=== PATIENT | female | born 1935 | race Caucasian/White ===

== ENCOUNTER 2017-11-09 20:25 | Emergency (ER) | payer MEDICARE, OTHER, SELFPAY ==
[2017-11-09 20:27] VITALS: BP 145/85; PULSE 94; RESP 14; TEMP 37.1; O2SAT 98; BMI 32.3
[2017-11-09] MEDS: oxyCODONE 5 MG Tablet PO (22:29)
--- NOTE | 2017-11-09 22:40 | RAD_ITS ---
STUDY: X-RAY - LEFT TIBIA AND FIBULA REASON FOR EXAM: Female, 82 years old. Pain. Fall. Bruising TECHNIQUE: Frontal and lateral view(s) of the tibia and fibula were obtained. COMPARISON: None. FINDINGS: There is demineralization of the tibia. There is demineralization of the fibula. There is degenerative change of the visualized ankle. There is no demonstrated acute fracture. There is anterior soft tissue swelling. RAD/Tibia & Fibula 2 Views IMPRESSION: Soft tissue swelling. No fracture Electronically Signed: Crow Valle MD at 22:55 EDT , Service support ,
[2017-11-09 22:41] LABS: Hematocrit 34.1 % (37-47); Hemoglobin 11.4 g/dl (12.0-15.0); Mean Corp Hgb Conc 33.4 g/gl (32-36); Mean Corpuscular Hgb 33.6 pg (27.0-32.0); Mean Corpuscular Volume 100.6 fL (81-99); Mean Platelet Vol. 10.1 fl (6.2-12.0); Platelet Count 242 K/mm3 (150-450); RBC Distribution Width CV 13.3 % (11.6-14.6); RBC Distribution Width SD 48.7 fl (35.1-43.9); Red Blood Count 3.39 M/mm3 (4.2-5.4); Scan Indicated on CBC? Y/N NO; White Blood Count 7.3 K/mm3 (4.4-11.0)
[2017-11-09 22:48] LABS: International Normalized Ratio 2.1; Prothrombin Time (Protime)PT. 23.4 SECONDS (11.7-14.9)
--- NOTE | 2017-11-10 00:02 | ED.VIS.GEN ---
History of Present Illness Chief Complaint: Lower Extremity Injury Informant: Patient, Family Onset: Today Context: Sudden Onset Timing: Continuous Quality: sore/ache Location: distal left lower leg Current Severity: Moderate Maximum Severity: Moderate Worsened by: trying to walk, palpation Relieved by: rest, elevation, ice pack Narrative: Was carrying her dog, accidentally tripped while going up some concrete steps, accidentally hitting her left leg on the step. Did not fall and injure anything else. Was initially walking, but as the day went on and the area became more swollen, she had more difficulty bearing weight on her left lower extremity. She is on Coumadin for chronic A. fib. She had been icing it some, applied no heat. - Past Medical History (1) Afib Status: Chronic Past Medical History - Allergies and Home Meds Allergies/Adverse Reactions: Allergies amoxicillin Allergy (Verified 11/09/17 21:10) Unknown indomethacin [From Indocin] Allergy (Verified 11/09/17 21:10) Unknown Primary Care Physician: Abdirahman Aguero MD [Primary Care Provider] - Lives: Spouse/ Significant Other Smoking Status: Never smoker Review of Systems Musculoskeletal: Denies: Swelling, Extremity Pain Skin: Reports: Wounds - w/ bruising, no external bleeding Physical Exam Vital Signs/Narrative: Vital Signs Temp Pulse Resp BP Pulse Ox 11/09/17 20:27 98.7 F 94 14 145/85 H 98 Inital Vital Signs reviewed: Yes General: Well nourished, Well developed Head: Normocephalic, Atraumatic Neck: Supple, Nontender Extremities: Tenderness - medial distal left lower leg, including medial malleolus. large hematoma distal anterior left lower leg. no deformities. FROM knee, hip, ankle. no other signs of extremity trauma. Skin: Trauma - large hematoma distal anterior LLE. Neurological: Alert, Oriented x3, Cranial nerves II-XII grossly intact, Normal Strength, Normal Sensation Psychological: Normal affect Diagnostic/Tx/Re-eval Impressions Tibia/Fibula X-Ray 11/09/17 22:40 IMPRESSION: Soft tissue swelling. No fracture Electronically Signed: Crow Valle MD at 22:55 EDT , Service support , 11/09/17 22:17 Tibia & Fibula 2 Views [RAD] Stat Laboratory Results 11/09/17 11/09/17 22:30 22:30 WBC 7.3 RBC 3.39 L Hgb 11.4 L Hct 34.1 L MCV 100.6 H MCH 33.6 H MCHC 33.4 RDW 13.3 RDW Differential 48.7 H Plt Count 242 MPV 10.1 PT 23.4 H INR 2.1 - Medical Decision Making X-ray shows no fracture. INR is 2.1 therapeutic and her CBC shows that her counts are okay. On reevaluation, the hematoma appears similar to when I initially evaluated her and does not appear to be any active extension/expansion. Supportive care advised along with ice and elevation and avoiding heat. She was given an oxycodone here which helped, she was given a short prescription course for home use as needed. She has a cane to use at home and declines crutches. ED Disposition - Plan for ED Patient: Disposition: Home or Assisted Living Chief Complaint: Lower Extremity Injury Diagnosis: Traumatic hematoma of left lower leg Instructions: ED Hematoma Prescriptions: Oxycodone [Oxyir] 5 mg PO Q6H PRN PRN 3 Days #12 tab PRN Reason: Pain Referrals: Abdirahman Aguero MD [Primary Care Provider] - As Needed
--- NOTE | 2017-11-10 00:14 | ED.DCSUM_ITS ---
History of Present Illness Chief Complaint: Lower Extremity Injury Informant: Patient, Family Onset: Today Context: Sudden Onset Timing: Continuous Quality: sore/ache Location: distal left lower leg Current Severity: Moderate Maximum Severity: Moderate Worsened by: trying to walk, palpation Relieved by: rest, elevation, ice pack Narrative: Was carrying her dog, accidentally tripped while going up some concrete steps, accidentally hitting her left leg on the step. Did not fall and injure anything else. Was initially walking, but as the day went on and the area became more swollen, she had more difficulty bearing weight on her left lower extremity. She is on Coumadin for chronic A. fib. She had been icing it some, applied no heat. - Past Medical History (1) Afib Status: Chronic Past Medical History - Allergies and Home Meds Allergies/Adverse Reactions: Allergies amoxicillin Allergy (Verified 11/09/17 21:10) Unknown indomethacin [From Indocin] Allergy (Verified 11/09/17 21:10) Unknown Primary Care Physician: Abdirahman Aguero MD [Primary Care Provider] - Lives: Spouse/ Significant Other Smoking Status: Never smoker Review of Systems Musculoskeletal: Denies: Swelling, Extremity Pain Skin: Reports: Wounds - w/ bruising, no external bleeding Physical Exam Vital Signs/Narrative: Vital Signs Temp Pulse Resp BP Pulse Ox 11/09/17 20:27 98.7 F 94 14 145/85 H 98 Inital Vital Signs reviewed: Yes General: Well nourished, Well developed Head: Normocephalic, Atraumatic Neck: Supple, Nontender Extremities: Tenderness - medial distal left lower leg, including medial malleolus. large hematoma distal anterior left lower leg. no deformities. FROM knee, hip, ankle. no other signs of extremity trauma. Skin: Trauma - large hematoma distal anterior LLE. Neurological: Alert, Oriented x3, Cranial nerves II-XII grossly intact, Normal Strength, Normal Sensation Psychological: Normal affect Diagnostic/Tx/Re-eval Impressions Tibia/Fibula X-Ray 11/09/17 22:40 IMPRESSION: Soft tissue swelling. No fracture Electronically Signed: Crow Valle MD at 22:55 EDT , Service support , 11/09/17 22:17 Tibia & Fibula 2 Views [RAD] Stat Laboratory Results 11/09/17 11/09/17 22:30 22:30 WBC 7.3 RBC 3.39 L Hgb 11.4 L Hct 34.1 L MCV 100.6 H MCH 33.6 H MCHC 33.4 RDW 13.3 RDW Differential 48.7 H Plt Count 242 MPV 10.1 PT 23.4 H INR 2.1 - Medical Decision Making X-ray shows no fracture. INR is 2.1 therapeutic and her CBC shows that her counts are okay. On reevaluation, the hematoma appears similar to when I i nitially evaluated her and does not appear to be any active extension/expansion. Supportive care advised along with ice and elevation and avoiding heat. She was given an oxycodone here which helped, she was given a short prescription course for home use as needed. She has a cane to use at home and declines crutches. ED Disposition - Plan for ED Patient: Disposition: Home or Assisted Living Chief Complaint: Lower Extremity Injury Diagnosis: Traumatic hematoma of left lower leg Instructions: ED Hematoma Prescriptions: Oxycodone [Oxyir] 5 mg PO Q6H PRN PRN 3 Days #12 tab PRN Reason: Pain Referrals: Abdirahman Aguero MD [Primary Care Provider] - As Needed
[2017-11-10 00:26] VITALS: BP 138/79; PULSE 86; RESP 16; O2SAT 98
[2017-11-10] MEDS: oxyCODONE 5 MG Tablet PO (00:26)
== END 2017-11-10 00:33 | disposition home or self-care (01) ==
PROVIDERS: Emergency Provider Emergency Medicine; Family Provider Internal Medicine; PCP Internal Medicine
DX: S80.12XA Contusion of left lower leg, initial encounter (principal); W18.49XA Other slipping, tripping and stumbling without falling, initial encounter; Y93.9 Activity, unspecified; Y92.9 Unspecified place or not applicable; I48.2 Chronic atrial fibrillation; Z79.01 Long term (current) use of anticoagulants
CPT/HCPCS: 73590; 85027; 85610; 99283

== ENCOUNTER → 2017-11-17 15:54 | Outpatient (CLI) | payer MEDICARE, OTHER, SELFPAY ==
--- NOTE | 2017-11-17 16:40 | US_ITS ---
STUDY: SUPERFICIAL ULTRASOUND - LEFT LOWER ANTERIOR LEG. REASON FOR EXAM: Female, 82 years old. Redness and swelling. TECHNIQUE: A superficial ultrasound was performed with real-time and static kenyon-scale imaging. COMPARISON: None. FINDINGS: 2 adjacent lobulated fluid density structures with internal echoes seen in the area of clinical concern, measuring 4.9 and 6.4 cm. Findings are consistent with subcutaneous abscesses and or seromas. Electronically Signed: Nacho Rod MD at 17:21 EDT , Service support , US/Ext Non Vasc Limited/Soft Tiss
== END ==
PROVIDERS: Family Provider Internal Medicine; PCP Internal Medicine; Referring Provider Family Medicine; Visit Provider Family Medicine
DX: S80.12XD Contusion of left lower leg, subsequent encounter (principal)
CPT/HCPCS: 76882

== ENCOUNTER 2017-12-03 15:45 | Outpatient (RCR) | payer MEDICARE, OTHER, SELFPAY ==
[2017-11-23 10:17] VITALS: BP 104/64; PULSE 95; RESP 18; TEMP 36.6; BMI 29.3
--- NOTE | 2017-11-23 11:34 | HP.PCM_ITS ---
(1) Traumatic hematoma of left lower leg Status: Acute Current Visit: Yes Code(s): S80.12XA - Contusion of left lower leg, initial encounter (2) Hypertension Status: Chronic Current Visit: Yes Code(s): I10 - Essential (primary) hypertension (3) Glaucoma Status: Acute Current Visit: Yes Code(s): H40.9 - Unspecified glaucoma (4) Osteoarthritis Status: Acute Current Visit: Yes Code(s): M19.90 - Unspecified osteoarthritis, unspecified site (5) Afib Status: Chronic Current Visit: No Code(s): I48.91 - Unspecified atrial fibrillation (6) Bilateral lower extremity edema Status: Acute Current Visit: Yes Code(s): R60.0 - Localized edema (7) Decreased dorsalis pedis pulse Status: Acute Current Visit: Yes Code(s): R09.89 - Other specified symptoms and signs involving the circulatory and respiratory systems (8) Abnormal ankle brachial index (SAHIL) Status: Acute Current Visit: Yes Code(s): R68.89 - Other general symptoms and signs History of Present Illness Date of Service: 11/23/17 Chief Complaint: hematoma left lower extremity x 2 anterior surface History of Wound: This is an 82-year-old white female who presents to the wound healing center with complaints of traumatic hematomas to the left lower extremity and bilateral lower extremity edema. She has a past medical history as listed above. It should be noted that she has persistent atrial fibrillation and on chronic Coumadin therapy. The patient states that she was carrying her dog and fell on 11/09/2017 and presented to the emergency department. An x-ray of her left ankle was negative at that time. She states that shortly after she noticed an increase in redness and swelling to her left lower extremity. She had a venous duplex ultrasound which was negative for DVT and she had a repeat ultrasound on 11/17/2017 which demonstrated to areas of the left lower extremity consistent with either an abscess or probable seroma which measured 4.9 cm and the other 6.4 cm. She states that she has been utilizing no compression and has been utilizing triple antibiotic ointment and ice. She denies any signs of systemic infection at this time and does state that the redness and warmth has diminished greatly. She denies any other aggravating or relieving factors. She does note occasional serous discharge. The patient otherwise denies any fever, chills, nausea, vomiting, shortness of breath, chest pain or pressure, palpitations, orthopnea, lower extremity edema, syncope or presyncopal episodes. Past Medical History Past Medical History: Chronic Problems Afib (Chronic) Hypertension (Chronic) Allergies/Adverse Reactions: Allergies amoxicillin Allergy (Verified 11/09/17 21:10) Unknown indomethacin [From Indocin] Allergy (Verified 11/09/17 21:10) Unknown Home Medications: Ambulatory Orders Medication Instructions Recorded Aspirin [Aspirin, Baby] 81 mg PO DAILY@0800 11/23/17 Calcium Carb/Vitamin D [Os-Phi 3 tablet PO DAILY@0800 11/23/17 500MG + D] Cyanocobalamin [Vitamin B12] 500 mcg PO DAILY@0800 11/23/17 Felodipine [Plendil] 5 mg PO DAILY 11/23/17 Latanoprost 0.005% [Xalatan 1 drop EACH EYE QHS 11/23/17 Opthalmic] Losartan/Hydrochlorothiazide 1 tab PO DAILY 11/23/17 [Hyzaar 100-25 Tablet] Metoprolol Tartrate [Lopressor 25 mg PO QHS 11/23/17 (Beta Fox)] Metoprolol Tartrate [Lopressor 50 mg PO BREAKFAST 11/23/17 (Beta Fox)] Multivit-Min/FA/Lycopen/Lutein 1 each PO DAILY 11/23/17 [Senior Tabs] Smoking Status: Never smoker Review of Systems Constitutional: Denies: Chills, Fever, Weight Change Eyes: Denies: Pain, Vision Change HEENT: Denies: Difficulty Hearing, Difficulty Swallowing, Sinus Congestion Cardiovascular: Denies: Chest Pain, Palpitations Respiratory: Denies: Cough, Shortness of Breath Gastrointestinal: Denies: Diarrhea, Nausea, Vomiting Genitourinary: Denies: Dysuria, Hematuria Skin: Reports: Wounds - Hematoma see HPI Psychiatric: Denies: Anxiety, Depression Endocrine: Denies: Heat/ Cold Intolerance, Polydipsia, Polyuria Hematologic/ Lymphatic: Denies: Easy Bruising, Easy Bleeding - Physical Exam Vital Signs Temp Pulse Resp BP 97.9 F 95 18 104/64 11/23/17 10:17 11/23/17 10:17 11/23/17 10:17 11/23/17 10:17 General: Alert, Oriented x3, Cooperative, No apparent distress HEENT: Atraumatic, PERRLA, EOMI Oral: Moist Mucosa Lungs: Clear to auscultation, Normal air movement, No rhonchi, No wheeze, No rales Cardiovascular: Irregular Rate - irreg irreg, Murmur - grade 2 systolic murmur heard best aortic Abdomen: Bowel Sounds Present, Soft, Non Tender, Non-Distended, Obese Extremities: Cool, Diminished Peripheral Pulses, Edema - 3+ edema left lower extremity 2+ right lower extremity edema Skin: - - Hematoma present left lower extremity anterior and medial lower leg with fluctuance noted, minimal erythema present and no warmth noted at this time. Minimal serous drainage. Wound Measurements and Assessment WC - Nurse 1 - General Ulcer Measurement Start: 11/23/17 10:17 Freq: Status: Active Protocol: Activity Type Activity Date Activity User E-Sign Co-Sign Detail Recorded Client Recorded Date Recorded By Document 11/23/17 10:17 RB [id number] 11/23/17 10:36 RB 11/23/17 10:17 Wound Center Nurse 1 [Ulcer Assessment] 2. L lateral chow -Combined with other wound No -Current Size (cm) - Length 3.8 -Current Size (cm) - Width 7.7 -Current Size (cm) - Depth 0.1 -Total Square Cm 29.26 -Photo Taken Yes -Tunneling No -Undermining/Tunneling No -Circular Undermining No -Classification - Thickness Full Thickness without Exposed Support Structure -Exudate Amt Small (1-33%) -Exudate Type Serosanguineous -Wound Margin Distinct, Outline Attached -Granulation Amt Small (1-33%) -Granulation Quality [place] -Slough/Fibrin Yes -Necrosis Amt Large (67-100%) -Necrotic Tissue Type Eschar -Structure Exposed N/A -Texture (Maryse-wound Skin Appearance) Assessed Localized Edema -Moisture (Maryse-wound Skin Appearance Assessed ) -Color (Maryse-wound Skin Appearance) Assessed Hemosiderin Staining -Temperature (Maryse-wound Skin No Abnormality Appearance) (Pt Warm) -Tenderness on Palpation (Maryse-wound No Skin Appearance) -Ulcer Cleansing Rinsed/ Irrigated with Saline -Foul Odor after Cleansing No -Anesthetic Used 4% Lidocaine Solution 1. L medial chow -Combined with other wound No -Current Size (cm) - Length 2 -Current Size (cm) - Width 4 -Current Size (cm) - Depth 0.1 -Total Square Cm 8 -Photo Taken Yes -Tunneling No -Undermining/Tunneling No -Circular Undermining No -Classification - Thickness Full Thickness without Exposed Support Structure -Exudate Amt Small (1-33%) -Exudate Type Serosanguineous -Wound Margin Distinct, Outline Attached -Granulation Amt Small (1-33%) -Granulation Quality [place] -Slough/Fibrin Yes -Necrosis Amt Large (67-100%) -Necrotic Tissue Type Adherent Slough -Structure Exposed N/A -Texture (Maryse-wound Skin Appearance) Assessed Localized Edema -Moisture (Maryse-wound Skin Appearance Assessed ) -Color (Maryse-wound Skin Appearance) Hemosiderin Staining -Temperature (Maryse-wound Skin No Abnormality Appearance) (Pt Warm) -Tenderness on Palpation (Maryse-wound No Skin Appearance) -Ulcer Cleansing Rinsed/ Irrigated with Saline -Foul Odor after Cleansing No -Anesthetic Used 4% Lidocaine Solution [Edema Assessment] -Lower Limb Edema Present Yes -Right Calf (cm) 44 -Right Ankle (cm) 30 -Left Calf (cm) 47.5 -Left Ankle (cm) 31 WC - Nurse 2 - General Ulcer CM Notes Start: 11/23/17 10:17 Freq: Status: Active Protocol: Activity Type Activity Date Activity User E-Sign Co-Sign Detail Recorded Client Recorded Date Recorded By Document 11/23/17 10:54 [id number] 11/23/17 11:09 11/23/17 10:54 Wound Center Nurse 2 [Procedure/Treatment] 2. L lateral chow -Time 10:54 -Correct Patient Yes -Correct Side, Site, Position Yes -Correct Procedure Yes -Procedure Performed Yes -Type of Procedure Debridement -Clinical Debridement Selective -Post Debridement Size (cm) - Length 3.5 -Post Debridement Size (cm) - Width 7.5 -Post Debridement Size (cm) - Depth 0.1 -Total Square Cm 26.25 -Wound/Ulcer Outcome Not Healed -Ulcer Cleansing Rinsed/ Irrigated with Saline -Foul Odor after Cleansing No -Bioengineered Tissue No -Topical Lidocaine (%) 4 -Bleeding Controlled with Pressure -Treatment Response Procedure Tolerated Well 1. L medial chow -Time 11:04 -Correct Patient Yes -Correct Side, Site, Position Yes -Correct Procedure Yes -Procedure Performed Yes -Type of Procedure Debridement -Clinical Debridement Selective -Post Debridement Size (cm) - Length 1.5 -Post Debridement Size (cm) - Width 2.5 -Post Debridement Size (cm) - Depth 0.1 -Total Square Cm 3.75 -Wound/Ulcer Outcome Not Healed -Ulcer Cleansing Rinsed/ Irrigated with Saline -Foul Odor after Cleansing No -Bioengineered Tissue No -Topical Lidocaine (%) 4 -Bleeding Controlled with Pressure -Treatment Response Procedure Tolerated Well [See Physician Procedure note for Specifics] Pain Scale: 0-10 Numeric [Pain] -Is Patient Pain Free? Yes Neurological: Neuro grossly intact Psych/Mental Status: Normal Affect, Appropriate, Alert and oriented to time, place, person, mood and affect Debridement Note Post-Debridement Measurements/Treatment WC - Nurse 2 - General Ulcer CM Notes Start: 11/23/17 10:17 Freq: Status: Active Protocol: Activity Type Activity Date Activity User E-Sign Co-Sign Detail Recorded Client Recorded Date Recorded By Document 11/23/17 10:54 [id number] 11/23/17 11:09 11/23/17 10:54 Wound Center Nurse 2 2. L lateral chow -Time 10:54 -Correct Patient Yes -Correct Side, Site, Position Yes -Correct Procedure Yes -Procedure Performed Yes -Type of Procedure Debridement -Clinical Debridement Selective -Post Debridement Size (cm) - Length 3.5 -Post Debridement Size (cm) - Width 7.5 -Post Debridement Size (cm) - Depth 0.1 -Total Square Cm 26.25 -Wound/Ulcer Outcome Not Healed -Ulcer Cleansing Rinsed/ Irrigated with Saline -Foul Odor after Cleansing No -Bioengineered Tissue No -Topical Lidocaine (%) 4 -Bleeding Controlled with Pressure -Treatment Response Procedure Tolerated Well 1. L medial chow -Time 11:04 -Correct Patient Yes -Correct Side, Site, Position Yes -Correct Procedure Yes -Procedure Performed Yes -Type of Procedure Debridement -Clinical Debridement Selective -Post Debridement Size (cm) - Length 1.5 -Post Debridement Size (cm) - Width 2.5 -Post Debridement Size (cm) - Depth 0.1 -Total Square Cm 3.75 -Wound/Ulcer Outcome Not Healed -Ulcer Cleansing Rinsed/ Irrigated with Saline -Foul Odor after Cleansing No -Bioengineered Tissue No -Topical Lidocaine (%) 4 -Bleeding Controlled with Pressure -Treatment Response Procedure Tolerated Well Pain Scale: 0-10 Numeric Is Patient Pain Free? Yes Wound debrided: Left lower extremity hematomas Laterality: Left Type of Debridement: Selective debridement Anesthesia Used: 5% Lidocaine Gel Depth: Down to and including healthy tissue Percentage of wound debrided: 100 Instrument Used: 7mm curette Tissue Removed: Very superficial slough, skin at this time is still intact over top hematom Severity: Limited To Skin Breakdown Amount of bleeding with debridement: None Patient tolerated procedure well Assessment/Plan Active Problems Traumatic hematoma of left lower leg (Acute) Hypertension (Chronic) Glaucoma (Acute) Osteoarthritis (Acute) Bilateral lower extremity edema (Acute) Decreased dorsalis pedis pulse (Acute) Abnormal ankle brachial index (SAHIL) (Acute) Assessment: See above diagnoses Plan: The patient was seen and examined at the wound center today and was updated on the plan of care. A selective debridement was performed today. The patient tolerated the procedure well. The skin surrounding the areas of hematomas and on top of the hematomas is intact at this time. The patients wound care will consist of: Adaptic gauze and double Tubigrip. No further compression at this time due to screening SAHIL being abnormal to the left SAHIL 1.5 and right SAHIL 1.3. Baseline bloodwork reviewed from ER notes and essentially within normal limits, recent venous duplex, ultrasound, and x-ray reviewed as well. Vascular studies ordered. Patient to utilize warm compresses and educated on proper use of warm compresses to help body reabsorb the hematomas. Patient educated on the importance of diet on wound healing and instructed to increase protein and vitamin C intake. Patient verbalized understanding. Patient will follow up at wound healing center in one week or sooner if needed. This note was generated with Medigram dictation software. It may contain incorrect words, spelling, and punctuation that were not noted in checking the note before signing. Code Visit 21647 Office Visits / Consults: [id number] OV L4 Est
[2017-12-03 15:48] VITALS: BP 121/96; PULSE 90; RESP 16; TEMP 36.2; BMI 29.3
--- NOTE | 2017-12-03 20:08 | PCM.WC.PN ---
(1) Traumatic hematoma of left lower leg Status: Acute Current Visit: Yes Code(s): S80.12XA - Contusion of left lower leg, initial encounter (2) Hypertension Status: Chronic Current Visit: Yes Code(s): I10 - Essential (primary) hypertension (3) Glaucoma Status: Acute Current Visit: Yes Code(s): H40.9 - Unspecified glaucoma (4) Osteoarthritis Status: Acute Current Visit: Yes Code(s): M19.90 - Unspecified osteoarthritis, unspecified site (5) Afib Status: Chronic Current Visit: No Code(s): I48.91 - Unspecified atrial fibrillation (6) Bilateral lower extremity edema Status: Acute Current Visit: Yes Code(s): R60.0 - Localized edema (7) Decreased dorsalis pedis pulse Status: Acute Current Visit: Yes Code(s): R09.89 - Other specified symptoms and signs involving the circulatory and respiratory systems (8) Abnormal ankle brachial index (SAHIL) Status: Acute Current Visit: Yes Code(s): R68.89 - Other general symptoms and signs (9) Wound of left lower extremity Status: Acute Current Visit: Yes Code(s): S81.802A - Unspecified open wound, left lower leg, initial encounter Type of Wound Date of Service: 12/03/17 Chief Complaint: hematoma left lower extremity x 2 anterior surface medial and lateral History of Wound: This is an 82-year-old white female who presents to the wound healing center with complaints of traumatic hematomas to the left lower extremity and bilateral lower extremity edema. She has a past medical history as listed above. It should be noted that she has persistent atrial fibrillation and on chronic Coumadin therapy. The patient states that she was carrying her dog and fell on 11/09/2017 and presented to the emergency department. An x-ray of her left ankle was negative at that time. She states that shortly after she noticed an increase in redness and swelling to her left lower extremity. She had a venous duplex ultrasound which was negative for DVT and she had a repeat ultrasound on 11/17/2017 which demonstrated to areas of the left lower extremity consistent with either an abscess or probable seroma which measured 4.9 cm and the other 6.4 cm. She states that she has been utilizing no compression and has been utilizing triple antibiotic ointment and ice. She denies any signs of systemic infection at this time and does state that the redness and warmth has diminished greatly. She denies any other aggravating or relieving factors. She does note occasional serous discharge. The patient otherwise denies any fever, chills, nausea, vomiting, shortness of breath, chest pain or pressure, palpitations, orthopnea, lower extremity edema, syncope or presyncopal episodes. Progress of Wound: Both sites on left lower extremity traumatic hematoma are now open and draining, patient and family deeply concerned - Physical Exam Vital Signs Temp Pulse Resp BP 97.1 F L 90 16 121/96 H 12/03/17 15:48 12/03/17 15:48 12/03/17 15:48 12/03/17 15:48 General: Alert, Oriented x3, Cooperative, No apparent distress HEENT: Atraumatic Lungs: Clear to auscultation Cardiovascular: Regular rate Extremities: Cool, Edema - 2+ Skin: Ulcer/ Wound - Medial and lateral hematoma sites on left lower extremity now open and draining, large amount of devitalized tissue present, slight malodor at this time, fluctuance noted surrounding both wound sites and tunneling varies between 5 and 8 cm, minimal tenderness to touch. Some erythema present surrounding wound bed edges not extending more than 2 cm from the wound bed edges. Wound Measurements and Assessment WC - Nurse 1 - General Ulcer Measurement Start: 11/23/17 10:17 Freq: Status: Active Protocol: Activity Type Activity Date Activity User E-Sign Co-Sign Detail Recorded Client Recorded Date Recorded By Document 12/03/17 15:48 [facility] [id number] 12/03/17 15:56 [facility] 12/03/17 15:48 Wound Center Nurse 1 [Ulcer Assessment] 2. L lateral chow -Combined with other wound No -Current Size (cm) - Length 4.4 -Current Size (cm) - Width 6.4 -Current Size (cm) - Depth 0.2 -Total Square Cm 28.16 -Photo Taken No -Epithelialization None Present -Tunneling No -Undermining/Tunneling No -Circular Undermining No -Exudate Amt Medium (34-66%) -Exudate Type Sanguineous -Wound Margin Distinct, Outline Attached -Granulation Amt None Present (0 %) -Slough/Fibrin Yes -Necrosis Amt Large (67-100%) -Necrotic Tissue Type Eschar -Structure Exposed N/A -Texture (Maryse-wound Skin Appearance) Localized Edema Scarring -Moisture (Maryse-wound Skin Appearance Dry/Scaly ) -Color (Maryse-wound Skin Appearance) Hemosiderin Staining -Temperature (Maryse-wound Skin No Abnormality Appearance) (Pt Warm) -Tenderness on Palpation (Maryse-wound No Skin Appearance) -Ulcer Cleansing Rinsed/ Irrigated with Saline -Foul Odor after Cleansing No -Anesthetic Used 4% Lidocaine Solution 1. L medial chow -Combined with other wound No -Current Size (cm) - Length 1.5 -Current Size (cm) - Width 1.7 -Current Size (cm) - Depth 0.1 -Total Square Cm 2.55 -Photo Taken No -Epithelialization None Present -Tunneling No -Undermining/Tunneling No -Circular Undermining No -Exudate Amt Small (1-33%) -Exudate Type Sanguineous -Wound Margin Distinct, Outline Attached -Granulation Amt None Present (0 %) -Slough/Fibrin Yes -Necrosis Amt Large (67-100%) -Necrotic Tissue Type Eschar -Structure Exposed N/A -Texture (Maryse-wound Skin Appearance) Localized Edema Scarring -Moisture (Maryse-wound Skin Appearance Dry/Scaly ) -Color (Maryse-wound Skin Appearance) Hemosiderin Staining -Temperature (Maryse-wound Skin No Abnormality Appearance) (Pt Warm) -Tenderness on Palpation (Maryse-wound No Skin Appearance) -Ulcer Cleansing Rinsed/ Irrigated with Saline -Foul Odor after Cleansing No -Anesthetic Used 4% Lidocaine Solution [Edema Assessment] -Lower Limb Edema Present Yes -Left Calf (cm) 42 -Left Ankle (cm) 29 WC - Nurse 2 - General Ulcer CM Notes Start: 11/23/17 10:17 Freq: Status: Active Protocol: Activity Type Activity Date Activity User E-Sign Co-Sign Detail Recorded Client Recorded Date Recorded By Document 12/03/17 17:06 DV [id number] 12/03/17 17:10 DV 12/03/17 17:06 Wound Center Nurse 2 [Procedure/Treatment] 2. L lateral chow -Time 17:09 -Correct Patient Yes -Correct Side, Site, Position Yes -Correct Procedure Yes -Procedure Performed Yes -Type of Procedure Debridement -Clinical Debridement Subcutaneous -Post Debridement Size (cm) - Length 1.0 -Post Debridement Size (cm) - Width 1.5 -Post Debridement Size (cm) - Depth 3.0 -Total Square Cm 1.50 -Wound/Ulcer Outcome Not Healed -Ulcer Cleansing Rinsed/ Irrigated with Saline -Foul Odor after Cleansing No -Bioengineered Tissue No -Bleeding Controlled with Pressure -Treatment Response Procedure Tolerated Well 1. L medial chow -Time 17:09 -Correct Patient Yes -Correct Side, Site, Position Yes -Correct Procedure Yes -Procedure Performed Yes -Type of Procedure Debridement -Clinical Debridement Subcutaneous -Post Debridement Size (cm) - Length 3.7 -Post Debridement Size (cm) - Width 5.7 -Post Debridement Size (cm) - Depth 3.3 -Total Square Cm 21.09 -Wound/Ulcer Outcome Not Healed -Ulcer Cleansing Rinsed/ Irrigated with Saline -Foul Odor after Cleansing No -Bioengineered Tissue No -Bleeding Controlled with Pressure -Treatment Response Procedure Tolerated Well [See Physician Procedure note for Specifics] Pain Scale: 0-10 Numeric [Pain] -Is Patient Pain Free? Yes Neurological: Neuro grossly intact Psych/Mental Status: Normal Affect, Appropriate, Alert and oriented to time, place, person, mood and affect Debridement Note Post-Debridement Measurements/Treatment WC - Nurse 2 - General Ulcer CM Notes Start: 11/23/17 10:17 Freq: Status: Active Protocol: Activity Type Activity Date Activity User E-Sign Co-Sign Detail Recorded Client Recorded Date Recorded By Document 11/23/17 10:54 TM [id number] 11/23/17 11:09 TM Document 12/03/17 17:06 DV [id number] 12/03/17 17:10 DV 11/23/17 12/03/17 10:54 17:06 Wound Center Nurse 2 2. L lateral chow -Time 10:54 17:09 -Correct Patient Yes Yes -Correct Side, Site, Position Yes Yes -Correct Procedure Yes Yes -Procedure Performed Yes Yes -Type of Procedure Debridement Debridement -Clinical Debridement Selective Subcutaneous -Post Debridement Size (cm) - Length 3.5 1.0 -Post Debridement Size (cm) - Width 7.5 1.5 -Post Debridement Size (cm) - Depth 0.1 3.0 -Total Square Cm 26.25 1.50 -Wound/Ulcer Outcome Not Healed Not Healed -Ulcer Cleansing Rinsed/ Rinsed/ Irrigated with Irrigated with Saline Saline -Foul Odor after Cleansing No No -Bioengineered Tissue No No -Topical Lidocaine (%) 4 -Bleeding Controlled with Pressure Pressure -Treatment Response Procedure Procedure Tolerated Well Tolerated Well 1. L medial chow -Time 11:04 17:09 -Correct Patient Yes Yes -Correct Side, Site, Position Yes Yes -Correct Procedure Yes Yes -Procedure Performed Yes Yes -Type of Procedure Debridement Debridement -Clinical Debridement Selective Subcutaneous -Post Debridement Size (cm) - Length 1.5 3.7 -Post Debridement Size (cm) - Width 2.5 5.7 -Post Debridement Size (cm) - Depth 0.1 3.3 -Total Square Cm 3.75 21.09 -Wound/Ulcer Outcome Not Healed Not Healed -Ulcer Cleansing Rinsed/ Rinsed/ Irrigated with Irrigated with Saline Saline -Foul Odor after Cleansing No No -Bioengineered Tissue No No -Topical Lidocaine (%) 4 -Bleeding Controlled with Pressure Pressure -Treatment Response Procedure Procedure Tolerated Well Tolerated Well Pain Scale: 0-10 Numeric Is Patient Pain Free? Yes Yes Wound debrided: left lower extremity wounds, medial and lateral Laterality: Left Type of Debridement: Excisional debridement Anesthesia Used: 5% Lidocaine Gel Depth: in the subcutaneous layer, to muscle Percentage of wound debrided: 100 Instrument Used: 7mm curette Tissue Removed: Large amount of black devitalized blood and necrotic tissue removed Severity: Necrosis of Muscle Amount of bleeding with debridement: Mild Bleeding Controlled with: Pressure Patient tolerated procedure well Assessment/Plan Active Problems Traumatic hematoma of left lower leg (Acute) Hypertension (Chronic) Glaucoma (Acute) Osteoarthritis (Acute) Bilateral lower extremity edema (Acute) Decreased dorsalis pedis pulse (Acute) Abnormal ankle brachial index (SAHIL) (Acute) Wound of left lower extremity (Acute) Assessment: See above diagnoses Plan: The patient was seen and examined at the wound center today and was updated on the plan of care. A subcutaneous debridement was performed today. The patient tolerated the procedure well. The previous hematoma sites on the left lower extremity are now open and draining. There is extensive undermining and tunneling present and discussed with patient that due to the malodor, will check wound cultures and will prophylactically start on doxycycline twice daily times 7 days. Did discuss with the patient and family that due to the extent of the devitalized tissue tunneling and undermining that an outpatient consult to general surgery is warranted. Patient and family is deeply concerned and states that they may seek medical attention in the emergency department. Did advise patient that wounds are not urgent at this time and are stable and that I can get a referral set up with either general surgery or Dr. Gaytan in plastic surgery. The patients wound care will consist of: aquacell silver and double Tubigrip. No further compression at this time due to screening SAHIL being abnormal to the left SAHIL 1.5 and right SAHIL 1.3. Baseline bloodwork reviewed from ER notes and essentially within normal limits, recent venous duplex, ultrasound, and x-ray reviewed as well. Vascular studies ordered. Patient to utilize warm compresses and educated on proper use of warm compresses to help body reabsorb the hematomas. Will apply for a [employer] vac. Patient educated on the importance of diet on wound healing and instructed to increase protein and vitamin C intake. Patient verbalized understanding. Patient will follow up at wound healing center in one week or sooner if needed. This note was generated with [employer] dictation software. It may contain incorrect words, spelling, and punctuation that were not noted in checking the note before signing. Code Visit [id number]: [id number] [place] subq tissue 20 sq cm/<
[2017-12-03 21:53] LABS: M R Staph aureus DNA By PCR Negative (Negative); Probe Check PASS; Staph aureus DNA By PCR NEGATIVE (Negative)
--- NOTE | 2017-12-04 09:14 | PN.PCM_ITS ---
(1) Traumatic hematoma of left lower leg Status: Acute Current Visit: Yes Code(s): S80.12XA - Contusion of left lower leg, initial encounter (2) Hypertension Status: Chronic Current Visit: Yes Code(s): I10 - Essential (primary) hypertension (3) Glaucoma Status: Acute Current Visit: Yes Code(s): H40.9 - Unspecified glaucoma (4) Osteoarthritis Status: Acute Current Visit: Yes Code(s): M19.90 - Unspecified osteoarthritis, unspecified site (5) Afib Status: Chronic Current Visit: No Code(s): I48.91 - Unspecified atrial fibrillation (6) Bilateral lower extremity edema Status: Acute Current Visit: Yes Code(s): R60.0 - Localized edema (7) Decreased dorsalis pedis pulse Status: Acute Current Visit: Yes Code(s): R09.89 - Other specified symptoms and signs involving the circulatory and respiratory systems (8) Abnormal ankle brachial index (SAHIL) Status: Acute Current Visit: Yes Code(s): R68.89 - Other general symptoms and signs (9) Wound of left lower extremity Status: Acute Current Visit: Yes Code(s): S81.802A - Unspecified open wound, left lower leg, initial encounter Type of Wound Date of Service: 12/03/17 Chief Complaint: hematoma left lower extremity x 2 anterior surface medial and lateral History of Wound: This is an 82-year-old white female who presents to the wound healing center with complaints of traumatic hematomas to the left lower extremity and bilateral lower extremity edema. She has a past medical history a s listed above. It should be noted that she has persistent atrial fibrillation and on chronic Coumadin therapy. The patient states that she was carrying her dog and fell on 11/09/2017 and presented to the emergency department. An x-ray of her left ankle was negative at that time. She states that shortly after she noticed an increase in redness and swelling to her left lower extremity. She had a venous duplex ultrasound which was negative for DVT and she had a repeat ultrasound on 11/17/2017 which demonstrated to areas of the left lower extremity consistent with either an abscess or probable seroma which measured 4.9 cm and the other 6.4 cm. She states that she has been utilizing no compression and has been utilizing triple antibiotic ointment and ice. She denies any signs of systemic infection at this time and does state that the redness and warmth has diminished greatly. She denies any other aggravating or relieving factors. She does note occasional serous discharge. The patient otherwise denies any fever, chills, nausea, vomiting, shortness of breath, chest pain or pressure, palpitations, orthopnea, lower extremity edema, syncope or presyncopal episodes. Progress of Wound: Both sites on left lower extremity traumatic hematoma are now open and draining, patient and family deeply concerned - Physical Exam Vital Signs Temp Pulse Resp BP 97.1 F L 90 16 121/96 H 12/03/17 15:48 12/03/17 15:48 12/03/17 15:48 12/03/17 15:48 General: Alert, Oriented x3, Cooperative, No apparent distress HEENT: Atraumatic Lungs: Clear to auscultation Cardiovascular: Regular rate Extremities: Cool, Edema - 2+ Skin: Ulcer/ Wound - Medial and lateral hematoma sites on left lower extremity now open and draining, large amount of devitalized tissue present, slight malodor at this time, fluctuance noted surrounding both wound sites and tunneling varies between 5 and 8 cm, minimal tenderness to touch. Some erythema present surrounding wound bed edges not extending more than 2 cm from the wound bed edges. Wound Measurements and Assessment WC - Nurse 1 - General Ulcer Measurement Start: 11/23/17 10:17 Freq: Status: Active Protocol: Activity Type Activity Date Activity User E-Sign Co-Sign Detail Recorded Client Recorded Date Recorded By Document 12/03/17 15:48 [facility] [id number] 12/03/17 15:56 [facility] 12/03/17 15:48 Wound Center Nurse 1 [Ulcer Assessment] 2. L lateral chow -Combined with other wound No -Current Size (cm) - Length 4.4 -Current Size (cm) - Width 6.4 -Current Size (cm) - Depth 0.2 -Total Square Cm 28.16 -Photo Taken No -Epithelialization None Present -Tunneling No -Undermining/Tunneling No -Circular Undermining No -Exudate Amt Medium (34-66%) -Exudate Type Sanguineous -Wound Margin Distinct, Outline Attached -Granulation Amt None Present (0 %) -Slough/Fibrin Yes -Necrosis Amt Large (67-100%) -Necrotic Tissue Type Eschar -Structure Exposed N/A -Texture (Maryse-wound Skin Appearance) Localized Edema Scarring -Moisture (Maryse-wound Skin Appearance Dry/Scaly ) -Color (Maryse-wound Skin Appearance) Hemosiderin Staining -Temperature (Maryse-wound Skin No Abnormality Appearance) (Pt Warm) -Tenderness on Palpation (Maryse-wound No Skin Appearance) -Ulcer Cleansing Rinsed/ Irrigated with Saline -Foul Odor after Cleansing No -Anesthetic Used 4% Lidocaine Solution 1. L medial chow -Combined with other wound No -Current Size (cm) - Length 1.5 -Current Size (cm) - Width 1.7 -Current Size (cm) - Depth 0.1 -Total Square Cm 2.55 -Photo Taken No -Epithelialization None Present -Tunneling No -Undermining/Tunneling No -Circular Undermining No -Exudate Amt Small (1-33%) -Exudate Type Sanguineous -Wound Margin Distinct, Outline Attached -Granulation Amt None Present (0 %) -Slough/Fibrin Yes -Necrosis Amt Large (67-100%) -Necrotic Tissue Type Eschar -Structure Exposed N/A -Texture (Maryse-wound Skin Appearance) Localized Edema Scarring -Moisture (Maryse-wound Skin Appearance Dry/Scaly ) -Color (Maryse-wound Skin Appearance) Hemosiderin Staining -Temperature (Maryse-wound Skin No Abnormality Appearance) (Pt Warm) -Tenderness on Palpation (Maryse-wound No Skin Appearance) -Ulcer Cleansing Rinsed/ Irrigated with Saline -Foul Odor after Cleansing No -Anesthetic Used 4% Lidocaine Solution [Edema Assessment] -Lower Limb Edema Present Yes -Left Calf (cm) 42 -Left Ankle (cm) 29 WC - Nurse 2 - General Ulcer CM Notes Start: 11/23/17 10:17 Freq: Status: Active Protocol: Activity Type Activity Date Activity User E-Sign Co-Sign Detail Recorded Client Recorded Date Recorded By Document 12/03/17 17:06 DV [id number] 12/03/17 17:10 DV 12/03/17 17:06 Wound Center Nurse 2 [Procedure/Treatment] 2. L lateral chow -Time 17:09 -Correct Patient Yes -Correct Side, Site, Position Yes -Correct Procedure Yes -Procedure Performed Yes -Type of Procedure Debridement -Clinical Debridement Subcutaneous -Post Debridement Size (cm) - Length 1.0 -Post Debridement Size (cm) - Width 1.5 -Post Debridement Size (cm) - Depth 3.0 -Total Square Cm 1.50 -Wound/Ulcer Outcome Not Healed -Ulcer Cleansing Rinsed/ Irrigated with Saline -Foul Odor after Cleansing No -Bioengineered Tissue No -Bleeding Controlled with Pressure -Treatment Response Procedure Tolerated Well 1. L medial chow -Time 17:09 -Correct Patient Yes -Correct Side, Site, Position Yes -Correct Procedure Yes -Procedure Performed Yes -Type of Procedure Debridement -Clinical Debridement Subcutaneous -Post Debridement Size (cm) - Length 3.7 -Post Debridement Size (cm) - Width 5.7 -Post Debridement Size (cm) - Depth 3.3 -Total Square Cm 21.09 -Wound/Ulcer Outcome Not Healed -Ulcer Cleansing Rinsed/ Irrigated with Saline -Foul Odor after Cleansing No -Bioengineered Tissue No -Bleeding Controlled with Pressure -Treatment Response Procedure Tolerated Well [See Physician Procedure note for Specifics] Pain Scale: 0-10 Numeric [Pain] -Is Patient Pain Free? Yes Neurological: Neuro grossly intact Psych/Mental Status: Normal Affect, Appropriate, Alert and oriented to time, place, person, mood and affect Debridement Note Post-Debridement Measurements/Treatment WC - Nurse 2 - General Ulcer CM Notes Start: 11/23/17 10:17 Freq: Status: Active Protocol: Activity Type Activity Date Activity User E-Sign Co-Sign Detail Recorded Client Recorded Date Recorded By Document 11/23/17 10:54 TM [id number] 11/23/17 11:09 TM Document 12/03/17 17:06 DV [id number] 12/03/17 17:10 DV 11/23/17 12/03/17 10:54 17:06 Wound Center Nurse 2 2. L lateral chow -Time 10:54 17:09 -Correct Patient Yes Yes -Correct Side, Site, Position Yes Yes -Correct Procedure Yes Yes -Procedure Performed Yes Yes -Type of Procedure Debridement Debridement -Clinical Debridement Selective Subcutaneous -Post Debridement Size (cm) - Length 3.5 1.0 -Post Debridement Size (cm) - Width 7.5 1.5 -Post Debridement Size (cm) - Depth 0.1 3.0 -Total Square Cm 26.25 1.50 -Wound/Ulcer Outcome Not Healed Not Healed -Ulcer Cleansing Rinsed/ Rinsed/ Irrigated with Irrigated with Saline Saline -Foul Odor after Cleansing No No -Bioengineered Tissue No No -Topical Lidocaine (%) 4 -Bleeding Controlled with Pressure Pressure -Treatment Response Procedure Procedure Tolerated Well Tolerated Well 1. L medial chow -Time 11:04 17:09 -Correct Patient Yes Yes -Correct Side, Site, Position Yes Yes -Correct Procedure Yes Yes -Procedure Performed Yes Yes -Type of Procedure Debridement Debridement -Clinical Debridement Selective Subcutaneous -Post Debridement Size (cm) - Length 1.5 3.7 -Post Debridement Size (cm) - Width 2.5 5.7 -Post Debridement Size (cm) - Depth 0.1 3.3 -Total Square Cm 3.75 21.09 -Wound/Ulcer Outcome Not Healed Not Healed -Ulcer Cleansing Rinsed/ Rinsed/ Irrigated with Irrigated with Saline Saline -Foul Odor after Cleansing No No -Bioengineered Tissue No No -Topical Lidocaine (%) 4 -Bleeding Controlled with Pressure Pressure -Treatment Response Procedure Procedure Tolerated Well Tolerated Well Pain Scale: 0-10 Numeric Is Patient Pain Free? Yes Yes Wound debrided: left lower extremity wounds, medial and lateral Laterality: Left Type of Debridement: Excisional debridement Anesthesia Used: 5% Lidocaine Gel Depth: in the subcutaneous layer, to muscle Percentage of wound debrided: 100 Instrument Used: 7mm curette Tissue Removed: Large amount of black devitalized blood and necrotic tissue removed Severity: Necrosis of Muscle Amount of bleeding with debridement: Mild Bleeding Controlled with: Pressure Patient tolerated procedure well Assessment/Plan Active Problems Traumatic hematoma of left lower leg (Acute) Hypertension (Chronic) Glaucoma (Acute) Osteoarthritis (Acute) Bilateral lower extremity edema (Acute) Decreased dorsalis pedis pulse (Acute) Abnormal ankle brachial index (SAHIL) (Acute) Wound of left lower extremity (Acute) Assessment: See above diagnoses Plan: The patient was seen and examined at the wound center today and was updated on the plan of care. A subcutaneous debridement was performed today. The patient tolerated the procedure well. The previous hematoma sites on the left lower extremity are now open and draining. There is extensive undermining and tunneling present and discussed with patient that due to the malodor, will check wound cultures and will prophylactically start on doxycycline twice daily times 7 days. Did discuss with the patient and family that due to the extent of the devitalized tissue tunneling and undermining that an outpatient consult to general surgery is warranted. Patient and family is deeply concerned and states that they may seek medical attention in the emergency department. Did advise patient that wounds are not urgent at this time and are stable and that I can get a referral set up with either general surgery or Dr. Gaytan in plastic surgery. The patients wound care will consist of: aquacell silver and double Tubigrip. No further compression at this time due to screening SAHIL being abnormal to the left SAHIL 1.5 and right SAHIL 1.3. Baseline bloodwork reviewed from ER notes and essentially within normal limits, recent venous duplex, ultrasound, and x-ray reviewed as well. Vascular studies ordered. Patient to utilize warm compresses and educated on proper use of warm compresses to help body reabsorb the hematomas. Will apply for a [employer]CI vac. Patient educated on the importance of diet on wound healing and instructed to increase protein and vitamin C intake. Patient verbalized understanding. Patient will follow up at wound healing center in one week or sooner if needed. This note was generated with [employer] dictation software. It may contain incorrect words, spelling, and punctuation that were not noted in checking the note before signing. Code Visit 111xxx-113xx: [id number] [place] subq tissue 20 sq cm/<
--- NOTE | 2018-01-22 15:31 | WC ---
Courtesy visit for NELSON Reeves today. Chart review did not have presence of Non-Invasive Vascular Studies scheduled 12/08/17 @ 10:00. Venous Ultrasound was from 2011. Patient did have SAHIL Screen performed 11/23/17 which was showed R-SAHIL=1.3 / L=1.5. Vascular studies rescheduled today for 02/01/18 @ 10:00 & 11:00 a.m. Mrs. Soto contacted with appointment, and acknowledged same. Next F/U appointment w/Claudia Prajapati: 01/28/18 @ 14:00
== END 2017-12-09 23:59 ==
LOC: WC 15:45
PROVIDERS: Family Provider Internal Medicine; PCP Internal Medicine; Visit Provider Nurse Practitioner Family
DX: S80.12XA Contusion of left lower leg, initial encounter (principal); W19.XXXA Unspecified fall, initial encounter; I10 Essential (primary) hypertension; M19.90 Unspecified osteoarthritis, unspecified site; I48.2 Chronic atrial fibrillation; R60.0 Localized edema; H40.9 Unspecified glaucoma; I48.1 Persistent atrial fibrillation; Z79.01 Long term (current) use of anticoagulants; Z79.899 Other long term (current) drug therapy
CPT/HCPCS: 11043; 11046; 87070; 87075; 87076; 87077; 87186; 87205; 87640; 97597; 97598; 99213; G0463

== ENCOUNTER 2017-12-03 18:18 | Emergency (ER) | payer MEDICARE, OTHER, SELFPAY ==
[2017-12-03 18:19] VITALS: BP 132/72; PULSE 90; RESP 14; TEMP 36.4; O2SAT 98; BMI 32.3
--- NOTE | 2017-12-03 20:04 | ED.DCSUM_ITS ---
- ER Visit Summary Date of Service: 12/03/17 Chief Complaint: Wound check History of Present Illness: The patient is a 82 F who presents for a wound check. She had a fall on November 09 with hematoma and open wounds to the left leg. She saw wound care today and had some debridement and packing. She states that she may need to see a surgeon. 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 She was told that this was not urgent. She denies any fevers increased pain drainage nausea vomiting diarrhea. She states she was told that we may be able to clean it up a bit for her. Physical Examination: Afebrile vitals are normal Moist mucous membranes Heart regular rate and rhythm Lungs are clear Abdomen soft Patient has open wounds of left lower extremity there is no erythema foul odor or drainage Test Results: Not indicated Emergency Department Course and Treatment: It is unclear why the patient was advised that she could or should be seen in the emergency department. I explained that this was not something we would have a surgeon see her for urgently but rather in outpatient follow-up. I also explained that in regards to wound care this is why she is in fact seeing the wound clinic. Does appear she was referred to Dr. Patel. She was given his contact information. She was instructed on signs and symptoms that should prompt her to be evaluated here in the emergency department and was discharged home. Treatment Plan: [] Disposition: Discharge Impression: Wound check left leg This note was generated with [employer] dictation software. It may contain incorrect words, spelling, and punctuation that were not noted in review of the chart prior to signing ED Disposition - Plan for ED Patient: Chief Complaint: Wound Check Referrals: Abdirahman Aguero MD [Primary Care Provider] -
--- NOTE | 2017-12-03 20:04 | ED.DEP ---
ED Disposition - Plan for ED Patient: Chief Complaint: Wound Check Referrals: Abdirahman Aguero MD [Primary Care Provider] - Francois Patel MD [STAFF PHYSICIAN] - Additional Instructions: You were seen for a wound check. Your wound does not appear infected. Continue to follow-up with the wound clinic. You can also follow-up with Dr. Patel. He should return if you develop any fevers redness drainage or increased pain.
== END 2017-12-03 20:47 | disposition home or self-care (01) ==
LOC: ED 20:10
PROVIDERS: Emergency Provider Emergency Medicine; Family Provider Internal Medicine; PCP Internal Medicine
DX: S81.802D Unspecified open wound, left lower leg, subsequent encounter (principal); I10 Essential (primary) hypertension; I48.91 Unspecified atrial fibrillation; Z79.01 Long term (current) use of anticoagulants; Z79.899 Other long term (current) drug therapy; W19.XXXD Unspecified fall, subsequent encounter; S80.12XA Contusion of left lower leg, initial encounter; R60.0 Localized edema; H40.9 Unspecified glaucoma; I48.1 Persistent atrial fibrillation
CPT/HCPCS: 11043; 11046; 87070; 87075; 87076; 87077; 87186; 87205; 87640; 99282

== ENCOUNTER 2018-01-07 14:00 | Outpatient (RCR) | payer MEDICARE, OTHER, SELFPAY ==
[2017-12-10 02:03] VITALS: BP 121/96; PULSE 90; RESP 16; TEMP 36.2
[2017-12-10 13:20] VITALS: BP 133/72; PULSE 90; RESP 16; TEMP 35.9
--- NOTE | 2017-12-10 19:11 | PCM.WC.PN ---
(1) Traumatic hematoma of left lower leg Status: Acute Current Visit: Yes Qualifiers: Code(s): S80.12XA - Contusion of left lower leg, initial encounter (2) Wound of left lower extremity Status: Acute Current Visit: Yes Code(s): S81.802A - Unspecified open wound, left lower leg, initial encounter (3) Abnormal ankle brachial index (SAHIL) Status: Acute Current Visit: Yes Code(s): R68.89 - Other general symptoms and signs (4) Bilateral lower extremity edema Status: Acute Current Visit: Yes Code(s): R60.0 - Localized edema (5) Decreased dorsalis pedis pulse Status: Acute Current Visit: Yes Code(s): R09.89 - Other specified symptoms and signs involving the circulatory and respiratory systems Type of Wound Date of Service: 12/10/17 Chief Complaint: hematoma left lower extremity x 2 anterior surface medial and lateral History of Wound: This is an 82-year-old white female who presents to the wound healing center with complaints of traumatic hematomas to the left lower extremity and bilateral lower extremity edema. She has a past medical history as listed above. It should be noted that she has persistent atrial fibrillation and on chronic Coumadin therapy. The patient states that she was carrying her dog and fell on 11/09/2017 and presented to the emergency department. An x-ray of her left ankle was negative at that time. She states that shortly after she noticed an increase in redness and swelling to her left lower extremity. She had a venous duplex ultrasound which was negative for DVT and she had a repeat ultrasound on 11/17/2017 which demonstrated to areas of the left lower extremity consistent with either an abscess or probable seroma which measured 4.9 cm and the other 6.4 cm. She states that she has been utilizing no compression and has been utilizing triple antibiotic ointment and ice. She denies any signs of systemic infection at this time and does state that the redness and warmth has diminished greatly. She denies any other aggravating or relieving factors. She does note occasional serous discharge. The patient otherwise denies any fever, chills, nausea, vomiting, shortness of breath, chest pain or pressure, palpitations, orthopnea, lower extremity edema, syncope or presyncopal episodes. Progress of Wound: Both anterior and medial sites on left lower extremity traumatic hematoma are now open and draining a moderate amount of serosanguinous fluid, patient denies any signs and symptoms of infection at this time. Denies any fever, chills, nausea, vomitting, sob, cp, syncope or prescyncopal episodes. Pt tolerating doxy and flagyl well. - Physical Exam Vital Signs Temp Pulse Resp BP 96.6 F L 90 16 133/72 H 12/10/17 13:20 12/10/17 13:20 12/10/17 13:20 12/10/17 13:20 General: Alert, Oriented x3, Cooperative, No apparent distress HEENT: Atraumatic Cardiovascular: Regular rate Abdomen: Obese Extremities: Cool, Diminished Peripheral Pulses, Edema - 2+ nonpitting edema to LLE Skin: Ulcer/ Wound - open wounds from traumatic hematoma LLE anterior and medial wounds with eschar, devitalized tissue, and slough present, anterior wound tunnels approximately 5 cm and medial wound tunnels 9.5 cm, still has significant fluctuance present surrounding both wounds, no redness or foul smelling discharge at this time. Wound Measurements and Assessment WC - Nurse 1 - General Ulcer Measurement Start: 12/10/17 13:20 Freq: Status: Active Protocol: Activity Type Activity Date Activity User E-Sign Co-Sign Detail Recorded Client Recorded Date Recorded By Document 12/10/17 13:20 [facility] [id number] 12/10/17 13:35 [facility] 12/10/17 13:20 Wound Center Nurse 1 [Ulcer Assessment] 2. L lateral chow -Combined with other wound No -Current Size (cm) - Length 3.7 -Current Size (cm) - Width 5.8 -Current Size (cm) - Depth 0.9 -Total Square Cm 21.46 -Photo Taken No -Epithelialization None Present -Tunneling Yes -Tunneling Position (O'clock) 1 -Tunneling Distance (cm) 5 -Undermining/Tunneling No -Circular Undermining No -Exudate Amt Medium (34-66%) -Exudate Type Sanguineous -Wound Margin Thickened -Granulation Amt Small (1-33%) -Granulation Quality Red -Slough/Fibrin Yes -Necrosis Amt Large (67-100%) -Necrotic Tissue Type Eschar -Texture (Maryse-wound Skin Appearance) Localized Edema Scarring -Moisture (Maryse-wound Skin Appearance Dry/Scaly ) -Color (Maryse-wound Skin Appearance) Erythema Hemosiderin Staining -Temperature (Maryse-wound Skin No Abnormality Appearance) (Pt Warm) -Tenderness on Palpation (Maryse-wound No Skin Appearance) -Ulcer Cleansing Rinsed/ Irrigated with Saline -Foul Odor after Cleansing No -Anesthetic Used 4% Lidocaine Solution 5% Lidocaine Gel 1. L medial chow -Combined with other wound No -Current Size (cm) - Length 1.4 -Current Size (cm) - Width 1.1 -Current Size (cm) - Depth 0.4 -Total Square Cm 1.54 -Photo Taken No -Epithelialization None Present -Tunneling Yes -Tunneling Position (O'clock) 1 -Tunneling Distance (cm) 8.1 -Undermining/Tunneling No -Circular Undermining No -Exudate Amt Medium (34-66%) -Exudate Type Sanguineous -Wound Margin Thickened -Granulation Amt Small (1-33%) -Granulation Quality Red -Slough/Fibrin Yes -Necrosis Amt Large (67-100%) -Necrotic Tissue Type Adherent Slough -Texture (Maryse-wound Skin Appearance) Localized Edema Scarring -Moisture (Maryse-wound Skin Appearance Dry/Scaly ) -Color (Maryse-wound Skin Appearance) Erythema Hemosiderin Staining -Temperature (Maryse-wound Skin No Abnormality Appearance) (Pt Warm) -Tenderness on Palpation (Maryse-wound No Skin Appearance) -Ulcer Cleansing Rinsed/ Irrigated with Saline -Foul Odor after Cleansing No -Anesthetic Used 4% Lidocaine Solution 5% Lidocaine Gel [Edema Assessment] -Lower Limb Edema Present Yes -Right Calf (cm) 42 -Right Ankle (cm) 29.2 WC - Nurse 2 - General Ulcer CM Notes Start: 12/10/17 13:20 Freq: Status: Active Protocol: Activity Type Activity Date Activity User E-Sign Co-Sign Detail Recorded Client Recorded Date Recorded By Document 12/10/17 14:45 [id number] 12/10/17 14:47 12/10/17 14:45 Wound Center Nurse 2 [Procedure/Treatment] 2. L lateral chow -Time 14:45 -Correct Patient Yes -Correct Side, Site, Position Yes -Correct Procedure Yes -Procedure Performed Yes -Type of Procedure Debridement -Clinical Debridement Muscle -Post Debridement Size (cm) - Length 4 -Post Debridement Size (cm) - Width 6.1 -Post Debridement Size (cm) - Depth 4 -Total Square Cm 24.4 -Wound/Ulcer Outcome Not Healed -Ulcer Cleansing Not Cleansed -Foul Odor after Cleansing No -Bioengineered Tissue No -Bleeding Controlled with Pressure -Treatment Response Procedure Tolerated Well 1. L medial chow -Time 14:45 -Correct Patient Yes -Correct Side, Site, Position Yes -Correct Procedure Yes -Procedure Performed Yes -Type of Procedure Debridement -Clinical Debridement Subcutaneous -Post Debridement Size (cm) - Length 1.2 -Post Debridement Size (cm) - Width 1 -Post Debridement Size (cm) - Depth 3.1 -Total Square Cm 1.2 -Wound/Ulcer Outcome Not Healed -Ulcer Cleansing Not Cleansed -Foul Odor after Cleansing No -Bioengineered Tissue No -Bleeding Controlled with Pressure -Treatment Response Procedure Tolerated Well [See Physician Procedure note for Specifics] Pain Scale: 0-10 Numeric [Pain] -Is Patient Pain Free? Yes Debridement Note Post-Debridement Measurements/Treatment WC - Nurse 2 - General Ulcer CM Notes Start: 12/10/17 13:20 Freq: Status: Active Protocol: Activity Type Activity Date Activity User E-Sign Co-Sign Detail Recorded Client Recorded Date Recorded By Document 12/10/17 14:45 [id number] 12/10/17 14:47 12/10/17 14:45 Wound Center Nurse 2 2. L lateral chow -Time 14:45 -Correct Patient Yes -Correct Side, Site, Position Yes -Correct Procedure Yes -Procedure Performed Yes -Type of Procedure Debridement -Clinical Debridement Muscle -Post Debridement Size (cm) - Length 4 -Post Debridement Size (cm) - Width 6.1 -Post Debridement Size (cm) - Depth 4 -Total Square Cm 24.4 -Wound/Ulcer Outcome Not Healed -Ulcer Cleansing Not Cleansed -Foul Odor after Cleansing No -Bioengineered Tissue No -Bleeding Controlled with Pressure -Treatment Response Procedure Tolerated Well 1. L medial chow -Time 14:45 -Correct Patient Yes -Correct Side, Site, Position Yes -Correct Procedure Yes -Procedure Performed Yes -Type of Procedure Debridement -Clinical Debridement Subcutaneous -Post Debridement Size (cm) - Length 1.2 -Post Debridement Size (cm) - Width 1 -Post Debridement Size (cm) - Depth 3.1 -Total Square Cm 1.2 -Wound/Ulcer Outcome Not Healed -Ulcer Cleansing Not Cleansed -Foul Odor after Cleansing No -Bioengineered Tissue No -Bleeding Controlled with Pressure -Treatment Response Procedure Tolerated Well Pain Scale: 0-10 Numeric Is Patient Pain Free? Yes Wound debrided: Left medial and anterior lower extremity wounds Laterality: Left Type of Debridement: Excisional debridement Anesthesia Used: 5% Lidocaine Gel Depth: in the subcutaneous layer, to muscle Percentage of wound debrided: 100 Instrument Used: 7mm curette Tissue Removed: necrotic tissue, eschar, slough, and devitalized tissue Severity: Fat Layer Exposed Amount of bleeding with debridement: Mild Bleeding Controlled with: Pressure Patient tolerated procedure well Assessment/Plan Active Problems (Last Reviewed 12/11/17 @ 09:41 by Arlette Fried) Traumatic hematoma of left lower leg (Acute) Bilateral lower extremity edema (Acute) Decreased dorsalis pedis pulse (Acute) Abnormal ankle brachial index (SAHIL) (Acute) Wound of left lower extremity (Acute) Assessment: See above diagnoses Plan: The patient was seen and examined at the wound center today and was updated on the plan of care. A subcutaneous and muscular debridement was performed today. The patient tolerated the procedure well. The previous hematoma sites on the left lower extremity continue to be open and draining. There is extensive undermining and tunneling present and patient does have an outpatient consult with general surgery tomorrow. WOund cultures were collected and demonstrated staph lugdunesis, capitis , corynebacterium, anaerobic cocci and clostridium species, pt tolerating flagyl and doxy well and instructed to have her inr checked more frequently since she is on coumadin therapy.The patients wound care will consist of: aquacell silver and double Tubigrip. No further compression at this time due to screening SAHIL being abnormal to the left SAHIL 1.5 and right SAHIL 1.3. Baseline bloodwork reviewed from ER notes and essentially within normal limits, recent venous duplex, ultrasound, and x-ray reviewed as well. Vascular studies ordered. Patient to utilize warm compresses and educated on proper use of warm compresses. [employer]CI vac approved, however, pt wishes to hold off utilizing until general surgeon input is obtained. Patient educated on the importance of diet on wound healing and instructed to increase protein and vitamin C intake. Patient verbalized understanding. Patient will follow up at wound healing center in one week or sooner if needed. Discussed red flag symptoms of infection that require urgent medical attention. This note was generated with [employer] software. It may contain incorrect words, spelling, and punctuation that were not noted in checking the note before signing. Code Visit 111xxx-113xx: [id number] [place] musc/fascia 20 sq cm/<
--- NOTE | 2017-12-11 10:17 | PN.PCM_ITS ---
(1) Traumatic hematoma of left lower leg Status: Acute Current Visit: Yes Qualifiers: Code(s): S80.12XA - Contusion of left lower leg, initial encounter (2) Wound of left lower extremity Status: Acute Current Visit: Yes Code(s): S81.802A - Unspecified open wound, left lower leg, initial encounter (3) Abnormal ankle brachial index (SAHIL) Status: Acute Current Visit: Yes Code(s): R68.89 - Other general symptoms and signs (4) Bilateral lower extremity edema Status: Acute Current Visit: Yes Code(s): R60.0 - Localized edema (5) Decreased dorsalis pedis pulse Status: Acute Current Visit: Yes Code(s): R09.89 - Other specified symptoms and signs involving the circulatory and respiratory systems Type of Wound Date of Service: 12/10/17 Chief Complaint: hematoma left lower extremity x 2 anterior surface medial and lateral History of Wound: This is an 82-year-old white female who presents to the wound healing center with complaints of traumatic hematomas to the left lower extremity and bilateral lower extremity edema. She has a past medical history as listed above. It should be noted that she has persistent atrial fibrillation and on chronic Coumadin therapy. The patient states that she was carrying her d og and fell on 11/09/2017 and presented to the emergency department. An x-ray of her left ankle was negative at that time. She states that shortly after she noticed an increase in redness and swelling to her left lower extremity. She had a venous duplex ultrasound which was negative for DVT and she had a repeat ultrasound on 11/17/2017 which demonstrated to areas of the left lower extremity consistent with either an abscess or probable seroma which measured 4.9 cm and the other 6.4 cm. She states that she has been utilizing no compression and has been utilizing triple antibiotic ointment and ice. She denies any signs of systemic infection at this time and does state that the redness and warmth has diminished greatly. She denies any other aggravating or relieving factors. She does note occasional serous discharge. The patient otherwise denies any fever, chills, nausea, vomiting, shortness of breath, chest pain or pressure, palpitations, orthopnea, lower extremity edema, syncope or presyncopal episodes. Progress of Wound: Both anterior and medial sites on left lower extremity traumatic hematoma are now open and draining a moderate amount of serosanguinous fluid, patient denies any signs and symptoms of infection at this time. Denies any fever, chills, nausea, vomitting, sob, cp, syncope or prescyncopal episodes. Pt tolerating doxy and flagyl well. - Physical Exam Vital Signs Temp Pulse Resp BP 96.6 F L 90 16 133/72 H 12/10/17 13:20 12/10/17 13:20 12/10/17 13:20 12/10/17 13:20 General: Alert, Oriented x3, Cooperative, No apparent distress HEENT: Atraumatic Cardiovascular: Regular rate Abdomen: Obese Extremities: Cool, Diminished Peripheral Pulses, Edema - 2+ nonpitting edema to LLE Skin: Ulcer/ Wound - open wounds from traumatic hematoma LLE anterior and medial wounds with eschar, devitalized tissue, and slough present, anterior wound tunnels approximately 5 cm and medial wound tunnels 9.5 cm, still has significant fluctuance present surrounding both wounds, no redness or foul smelling discharge at this time. Wound Measurements and Assessment WC - Nurse 1 - General Ulcer Measurement Start: 12/10/17 13:20 Freq: Status: Active Protocol: Activity Type Activity Date Activity User E-Sign Co-Sign Detail Recorded Client Recorded Date Recorded By Document 12/10/17 13:20 [facility] [id number] 12/10/17 13:35 [facility] 12/10/17 13:20 Wound Center Nurse 1 [Ulcer Assessment] 2. L lateral chow -Combined with other wound No -Current Size (cm) - Length 3.7 -Current Size (cm) - Width 5.8 -Current Size (cm) - Depth 0.9 -Total Square Cm 21.46 -Photo Taken No -Epithelialization None Present -Tunneling Yes -Tunneling Position (O'clock) 1 -Tunneling Distance (cm) 5 -Undermining/Tunneling No -Circular Undermining No -Exudate Amt Medium (34-66%) -Exudate Type Sanguineous -Wound Margin Thickened -Granulation Amt Small (1-33%) -Granulation Quality Red -Slough/Fibrin Yes -Necrosis Amt Large (67-100%) -Necrotic Tissue Type Eschar -Texture (Maryse-wound Skin Appearance) Localized Edema Scarring -Moisture (Maryse-wound Skin Appearance Dry/Scaly ) -Color (Maryse-wound Skin Appearance) Erythema Hemosiderin Staining -Temperature (Maryse-wound Skin No Abnormality Appearance) (Pt Warm) -Tenderness on Palpation (Maryse-wound No Skin Appearance) -Ulcer Cleansing Rinsed/ Irrigated with Saline -Foul Odor after Cleansing No -Anesthetic Used 4% Lidocaine Solution 5% Lidocaine Gel 1. L medial chow -Combined with other wound No -Current Size (cm) - Length 1.4 -Current Size (cm) - Width 1.1 -Current Size (cm) - Depth 0.4 -Total Square Cm 1.54 -Photo Taken No -Epithelialization None Present -Tunneling Yes -Tunneling Position (O'clock) 1 -Tunneling Distance (cm) 8.1 -Undermining/Tunneling No -Circular Undermining No -Exudate Amt Medium (34-66%) -Exudate Type Sanguineous -Wound Margin Thickened -Granulation Amt Small (1-33%) -Granulation Quality Red -Slough/Fibrin Yes -Necrosis Amt Large (67-100%) -Necrotic Tissue Type Adherent Slough -Texture (Maryse-wound Skin Appearance) Localized Edema Scarring -Moisture (Maryse-wound Skin Appearance Dry/Scaly ) -Color (Maryse-wound Skin Appearance) Erythema Hemosiderin Staining -Temperature (Maryse-wound Skin No Abnormality Appearance) (Pt Warm) -Tenderness on Palpation (Maryse-wound No Skin Appearance) -Ulcer Cleansing Rinsed/ Irrigated with Saline -Foul Odor after Cleansing No -Anesthetic Used 4% Lidocaine Solution 5% Lidocaine Gel [Edema Assessment] -Lower Limb Edema Present Yes -Right Calf (cm) 42 -Right Ankle (cm) 29.2 WC - Nurse 2 - General Ulcer CM Notes Start: 12/10/17 13:20 Freq: Status: Active Protocol: Activity Type Activity Date Activity User E-Sign Co-Sign Detail Recorded Client Recorded Date Recorded By Document 12/10/17 14:45 [id number] 12/10/17 14:47 12/10/17 14:45 Wound Center Nurse 2 [Procedure/Treatment] 2. L lateral chow -Time 14:45 -Correct Patient Yes -Correct Side, Site, Position Yes -Correct Procedure Yes -Procedure Performed Yes -Type of Procedure Debridement -Clinical Debridement Muscle -Post Debridement Size (cm) - Length 4 -Post Debridement Size (cm) - Width 6.1 -Post Debridement Size (cm) - Depth 4 -Total Square Cm 24.4 -Wound/Ulcer Outcome Not Healed -Ulcer Cleansing Not Cleansed -Foul Odor after Cleansing No -Bioengineered Tissue No -Bleeding Controlled with Pressure -Treatment Response Procedure Tolerated Well 1. L medial chow -Time 14:45 -Correct Patient Yes -Correct Side, Site, Position Yes -Correct Procedure Yes -Procedure Performed Yes -Type of Procedure Debridement -Clinical Debridement Subcutaneous -Post Debridement Size (cm) - Length 1.2 -Post Debridement Size (cm) - Width 1 -Post Debridement Size (cm) - Depth 3.1 -Total Square Cm 1.2 -Wound/Ulcer Outcome Not Healed -Ulcer Cleansing Not Cleansed -Foul Odor after Cleansing No -Bioengineered Tissue No -Bleeding Controlled with Pressure -Treatment Response Procedure Tolerated Well [See Physician Procedure note for Specifics] Pain Scale: 0-10 Numeric [Pain] -Is Patient Pain Free? Yes Debridement Note Post-Debridement Measurements/Treatment WC - Nurse 2 - General Ulcer CM Notes Start: 12/10/17 13:20 Freq: Status: Active Protocol: Activity Type Activity Date Activity User E-Sign Co-Sign Detail Recorded Client Recorded Date Recorded By Document 12/10/17 14:45 [id number] 12/10/17 14:47 12/10/17 14:45 Wound Center Nurse 2 2. L lateral chow -Time 14:45 -Correct Patient Yes -Correct Side, Site, Position Yes -Correct Procedure Yes -Procedure Performed Yes -Type of Procedure Debridement -Clinical Debridement Muscle -Post Debridement Size (cm) - Length 4 -Post Debridement Size (cm) - Width 6.1 -Post Debridement Size (cm) - Depth 4 -Total Square Cm 24.4 -Wound/Ulcer Outcome Not Healed -Ulcer Cleansing Not Cleansed -Foul Odor after Cleansing No -Bioengineered Tissue No -Bleeding Controlled with Pressure -Treatment Response Procedure Tolerated Well 1. L medial chow -Time 14:45 -Correct Patient Yes -Correct Side, Site, Position Yes -Correct Procedure Yes -Procedure Performed Yes -Type of Procedure Debridement -Clinical Debridement Subcutaneous -Post Debridement Size (cm) - Length 1.2 -Post Debridement Size (cm) - Width 1 -Post Debridement Size (cm) - Depth 3.1 -Total Square Cm 1.2 -Wound/Ulcer Outcome Not Healed -Ulcer Cleansing Not Cleansed -Foul Odor after Cleansing No -Bioengineered Tissue No -Bleeding Controlled with Pressure -Treatment Response Procedure Tolerated Well Pain Scale: 0-10 Numeric Is Patient Pain Free? Yes Wound debrided: Left medial and anterior lower extremity wounds Laterality: Left Type of Debridement: Excisional debridement Anesthesia Used: 5% Lidocaine Gel Depth: in the subcutaneous layer, to muscle Percentage of wound debrided: 100 Instrument Used: 7mm curette Tissue Removed: necrotic tissue, eschar, slough, and devitalized tissue Severity: Fat Layer Exposed Amount of bleeding with debridement: Mild Bleeding Controlled with: Pressure Patient tolerated procedure well Assessment/Plan Active Problems (Last Reviewed 12/11/17 @ 09:41 by Arlette Fried) Traumatic hematoma of left lower leg (Acute) Bilateral lower extremity edema (Acute) Decreased dorsalis pedis pulse (Acute) Abnormal ankle brachial index (SAHIL) (Acute) Wound of left lower extremity (Acute) Assessment: See above diagnoses Plan: The patient was seen and examined at the wound center today and was updated on the plan of care. A subcutaneous and muscular debridement was performed today. The patient tolerated the procedure well. The previous hematoma sites on the left lower extremity continue to be open and draining. There is extensive undermining and tunneling present and patient does have an outpatient consult with general surgery tomorrow. WOund cultures were collected and demonstrated staph lugdunesis, capitis , corynebacterium, anaerobic cocci and clostridium species, pt tolerating flagyl and doxy well and instructed to have her inr checked more frequently since she is on coumadin therapy.The patients wound care will consist of: aquacell silver and double Tubigrip. No further compression at this time due to screening SAHIL being abnormal to the left SAHIL 1.5 and right SAHIL 1.3. Baseline bloodwork reviewed from ER notes and essentially within normal limits, recent venous duplex, ultrasound, and x-ray reviewed as well. Vascular studies ordered. Patient to utilize warm compresses and educated on proper use of warm compresses. [employer] vac approved, however, pt wishes to hold off utilizing until general surgeon input is obtained. Patient educated on the importance of diet on wound healing and instructed to increase protein and vitamin C intake. Patient verbalized understanding. Patient will follow up at wound healing center in one week or sooner if needed. Discussed red flag symptoms of infection that require urgent medical attention. This note was generated with [employer] dictation software. It may contain incorrect words, spelling, and punctuation that were not noted in checking the note before signing. Code Visit 111xxx-113xx: 78084 [place] musc/fascia 20 sq cm/<
[2017-12-24 13:04] VITALS: BP 114/74; PULSE 97; RESP 16; TEMP 36.2
--- NOTE | 2017-12-24 15:03 | PCM.WC.PN ---
(1) Traumatic hematoma of left lower leg Status: Acute Current Visit: Yes Qualifiers: Encounter type: initial encounter Qualified Code(s): S80.12XA - Contusion of left lower leg, initial encounter Code(s): S80.12XA - Contusion of left lower leg, initial encounter (2) Wound of left lower extremity Status: Acute Current Visit: Yes Code(s): S81.802A - Unspecified open wound, left lower leg, initial encounter (3) Abnormal ankle brachial index (SAHIL) Status: Acute Current Visit: Yes Code(s): R68.89 - Other general symptoms and signs (4) Bilateral lower extremity edema Status: Acute Current Visit: Yes Code(s): R60.0 - Localized edema (5) Decreased dorsalis pedis pulse Status: Acute Current Visit: Yes Code(s): R09.89 - Other specified symptoms and signs involving the circulatory and respiratory systems Type of Wound Date of Service: 12/24/17 Chief Complaint: hematoma left lower extremity x 2 anterior surface medial and lateral History of Wound: This is an 82-year-old white female who presents to the wound healing center with complaints of traumatic hematomas to the left lower extremity and bilateral lower extremity edema. She has a past medical history as listed above. It should be noted that she has persistent atrial fibrillation and on chronic Coumadin therapy. The patient states that she was carrying her dog and fell on 11/09/2017 and presented to the emergency department. An x-ray of her left ankle was negative at that time. She states that shortly after she noticed an increase in redness and swelling to her left lower extremity. She had a venous duplex ultrasound which was negative for DVT and she had a repeat ultrasound on 11/17/2017 which demonstrated to areas of the left lower extremity consistent with either an abscess or probable seroma which measured 4.9 cm and the other 6.4 cm. She states that she has been utilizing no compression and has been utilizing triple antibiotic ointment and ice. She denies any signs of systemic infection at this time and does state that the redness and warmth has diminished greatly. She denies any other aggravating or relieving factors. She does note occasional serous discharge. The patient otherwise denies any fever, chills, nausea, vomiting, shortness of breath, chest pain or pressure, palpitations, orthopnea, lower extremity edema, syncope or presyncopal episodes. Progress of Wound: Both anterior and medial sites on left lower extremity traumatic hematoma are now open and draining a small amount of serosanguinous fluid, depths are improving, patient denies any signs and symptoms of infection at this time. Denies any fever, chills, nausea, vomitting, sob, cp, syncope or prescyncopal episodes. Pt completed doxy and flagyl. Patient was seen by general surgery who did a debridement in the office and is holding off on surgical debridement at this time. Patient states that they did not want her using the wound VAC. She states she has been doing daily wet to dry dressings. - Physical Exam Vital Signs Temp Pulse Resp BP 97.1 F L 97 16 114/74 12/24/17 13:04 12/24/17 13:04 12/24/17 13:04 12/24/17 13:04 General: Alert, Oriented x3, Cooperative, No apparent distress HEENT: Atraumatic Oral: Moist Mucosa Neck: Supple Cardiovascular: Regular rate Extremities: No clubbing, No cyanosis, Diminished Peripheral Pulses, Edema - 1+ left lower extremity edema Skin: Ulcer/ Wound - Left medial and lateral wound to the lower extremity with some adherent slough to wound edges, wound bed is granular, no surrounding fluctuance noted at this time. See nursing documentation on dimensions of wounds. No warmth or tenderness. No purulent drainage or malodor. Wound Measurements and Assessment WC - Nurse 1 - General Ulcer Measurement Start: 12/10/17 13:20 Freq: Status: Active Protocol: Activity Type Activity Date Activity User E-Sign Co-Sign Detail Recorded Client Recorded Date Recorded By Document 12/24/17 13:04 [facility] [id number] 12/24/17 13:23 [facility] 12/24/17 13:04 Wound Center Nurse 1 [Ulcer Assessment] 2. L lateral chow -Combined with other wound No -Current Size (cm) - Length 3.8 -Current Size (cm) - Width 5.1 -Current Size (cm) - Depth 1.8 -Total Square Cm 19.38 -Date of Last Picture (Recall this 12/24/17 field) -Photo Taken No -Epithelialization None Present -Tunneling Yes -Tunneling Position (O'clock) 1 -Tunneling Distance (cm) 5.1 -Undermining/Tunneling Yes -Undermining/Tunneling Starts (O' 10 clock) -Undermining/Tunneling Ends (O'clock) 2 -Maximum Distance (cm) 2.1 -Exudate Amt Large (67-100%) -Exudate Type Serosanguineous -Wound Margin Distinct, Outline Attached -Granulation Amt Large (67-100%) -Granulation Quality Red -Slough/Fibrin Yes -Necrosis Amt Small (1-33%) -Necrotic Tissue Type Adherent Slough -Structure Exposed Muscle Fat Layer Exposed -Texture (Maryse-wound Skin Appearance) Scarring -Moisture (Maryse-wound Skin Appearance Assessed ) Dry/Scaly -Color (Maryse-wound Skin Appearance) Assessed Erythema Hemosiderin Staining -Temperature (Maryse-wound Skin No Abnormality Appearance) (Pt Warm) -Tenderness on Palpation (Maryse-wound No Skin Appearance) -Ulcer Cleansing Rinsed/ Irrigated with Saline -Foul Odor after Cleansing No -Anesthetic Used 4% Lidocaine Solution 1. L medial chow -Combined with other wound No -Current Size (cm) - Length 1.4 -Current Size (cm) - Width 1.5 -Current Size (cm) - Depth 0.8 -Total Square Cm 2.10 -Date of Last Picture (Recall this 12/24/17 field) -Photo Taken Yes -Epithelialization None Present -Tunneling Yes -Tunneling Position (O'clock) 1 -Tunneling Distance (cm) 6.9 -Undermining/Tunneling No -Circular Undermining No -Exudate Amt Medium (34-66%) -Exudate Type Serosanguineous -Wound Margin Distinct, Outline Attached -Granulation Amt Large (67-100%) -Granulation Quality Red -Slough/Fibrin Yes -Necrosis Amt Small (1-33%) -Texture (Maryse-wound Skin Appearance) Scarring -Moisture (Maryse-wound Skin Appearance Dry/Scaly ) -Color (Maryse-wound Skin Appearance) Erythema Hemosiderin Staining -Temperature (Maryse-wound Skin No Abnormality Appearance) (Pt Warm) -Tenderness on Palpation (Maryse-wound No Skin Appearance) -Ulcer Cleansing Rinsed/ Irrigated with Saline -Foul Odor after Cleansing No -Anesthetic Used 4% Lidocaine Solution [Edema Assessment] -Lower Limb Edema Present Yes -Left Calf (cm) 41.7 -Left Ankle (cm) 28.7 WC - Nurse 2 - General Ulcer CM Notes Start: 12/10/17 13:20 Freq: Status: Active Protocol: Activity Type Activity Date Activity User E-Sign Co-Sign Detail Recorded Client Recorded Date Recorded By Document 12/24/17 13:59 [id number] 12/24/17 14:02 12/24/17 13:59 Wound Center Nurse 2 [Procedure/Treatment] 2. L lateral chow -Time 13:59 -Correct Patient Yes -Correct Side, Site, Position Yes -Correct Procedure Yes -Procedure Performed Yes -Type of Procedure Debridement -Clinical Debridement Subcutaneous -Post Debridement Size (cm) - Length 4.1 -Post Debridement Size (cm) - Width 5.7 -Post Debridement Size (cm) - Depth 1.6 -Total Square Cm 23.37 -Wound/Ulcer Outcome Not Healed -Ulcer Cleansing Rinsed/ Irrigated with Saline -Foul Odor after Cleansing No -Bioengineered Tissue No -Topical Lidocaine (%) 4 -Bleeding Controlled with Pressure -Other tunneling 1-3 oclock 5.9cm -Treatment Response Procedure Tolerated Well 1. L medial chow -Time 14:00 -Correct Patient Yes -Correct Side, Site, Position Yes -Correct Procedure Yes -Procedure Performed Yes -Type of Procedure Debridement -Clinical Debridement Subcutaneous -Post Debridement Size (cm) - Length 1.6 -Post Debridement Size (cm) - Width 1.5 -Post Debridement Size (cm) - Depth 1.1 -Total Square Cm 2.40 -Wound/Ulcer Outcome Not Healed -Ulcer Cleansing Rinsed/ Irrigated with Saline -Foul Odor after Cleansing No -Bioengineered Tissue No -Topical Lidocaine (%) 4 -Bleeding Controlled with Pressure -Other tunneling/ undermining 11- 1 oclock 6.0cm -Treatment Response Procedure Tolerated Well [See Physician Procedure note for Specifics] Pain Scale: 0-10 Numeric [Pain] -Is Patient Pain Free? Yes Neurological: Neuro grossly intact Psych/Mental Status: Normal Affect, Appropriate, Alert and oriented to time, place, person, mood and affect Debridement Note Post-Debridement Measurements/Treatment WC - Nurse 2 - General Ulcer CM Notes Start: 12/10/17 13:20 Freq: Status: Active Protocol: Activity Type Activity Date Activity User E-Sign Co-Sign Detail Recorded Client Recorded Date Recorded By Document 12/10/17 14:45 [id number] 12/10/17 14:47 Document 12/24/17 13:59 [id number] 12/24/17 14:02 12/10/17 12/24/17 14:45 13:59 Wound Center Nurse 2 2. L lateral chow -Time 14:45 13:59 -Correct Patient Yes Yes -Correct Side, Site, Position Yes Yes -Correct Procedure Yes Yes -Procedure Performed Yes Yes -Type of Procedure Debridement Debridement -Clinical Debridement Muscle Subcutaneous -Post Debridement Size (cm) - Length 4 4.1 -Post Debridement Size (cm) - Width 6.1 5.7 -Post Debridement Size (cm) - Depth 4 1.6 -Total Square Cm 24.4 23.37 -Wound/Ulcer Outcome Not Healed Not Healed -Ulcer Cleansing Not Cleansed Rinsed/ Irrigated with Saline -Foul Odor after Cleansing No No -Bioengineered Tissue No No -Topical Lidocaine (%) 4 -Bleeding Controlled with Pressure Pressure -Other tunneling 1-3 oclock 5.9cm -Treatment Response Procedure Procedure Tolerated Well Tolerated Well 1. L medial chow -Time 14:45 14:00 -Correct Patient Yes Yes -Correct Side, Site, Position Yes Yes -Correct Procedure Yes Yes -Procedure Performed Yes Yes -Type of Procedure Debridement Debridement -Clinical Debridement Subcutaneous Subcutaneous -Post Debridement Size (cm) - Length 1.2 1.6 -Post Debridement Size (cm) - Width 1 1.5 -Post Debridement Size (cm) - Depth 3.1 1.1 -Total Square Cm 1.2 2.40 -Wound/Ulcer Outcome Not Healed Not Healed -Ulcer Cleansing Not Cleansed Rinsed/ Irrigated with Saline -Foul Odor after Cleansing No No -Bioengineered Tissue No No -Topical Lidocaine (%) 4 -Bleeding Controlled with Pressure Pressure -Other tunneling/ undermining 11- 1 oclock 6.0cm -Treatment Response Procedure Procedure Tolerated Well Tolerated Well Pain Scale: 0-10 Numeric Is Patient Pain Free? Yes Yes Wound debrided: Left medial and lateral lower extremity wound Laterality: Left Type of Debridement: Excisional debridement Anesthesia Used: 5% Lidocaine Gel Depth: in the subcutaneous layer Percentage of wound debrided: 100 Instrument Used: 7mm curette Tissue Removed: Slough and devitalized tissue Severity: Fat Layer Exposed Amount of bleeding with debridement: Mild Bleeding Controlled with: Pressure Patient tolerated procedure well Assessment/Plan Active Problems (Last Reviewed 12/22/17 @ 14:21 by Karina Londono) Traumatic hematoma of left lower leg (Acute) Bilateral lower extremity edema (Acute) Decreased dorsalis pedis pulse (Acute) Abnormal ankle brachial index (SAHIL) (Acute) Wound of left lower extremity (Acute) Assessment: See above diagnoses Plan: The patient was seen and examined at the wound center today and was updated on the plan of care. A subcutaneous debridement was performed today. The patient tolerated the procedure well. The previous hematoma sites on the left lower extremity continue to be open and draining small amount of serosanguineous discharge. There is extensive undermining and tunneling present and patient did have an outpatient consult with general surgery who per patient stated that no surgery was indicated and wants her to hold off on using the wound VAC. Wound cultures were collected previously and demonstrated staph lugdunesis, capitis , corynebacterium, anaerobic cocci and clostridium species, pt completed a course of Flagyl and doxy. She has been monitoring her INR more frequently due to being on the antibiotics and her PCP has been adjusting her Coumadin appropriately. The patients wound care will consist of: aquacell silver and double Tubigrip. No further compression at this time due to screening SAHIL being abnormal to the left SAHIL 1.5 and right SAHIL 1.3. Baseline bloodwork reviewed from ER notes and essentially within normal limits, recent venous duplex, ultrasound, and x-ray reviewed as well. Vascular studies ordered. [employer] vac approved prior and is on hold at this time. Patient educated on the importance of diet on wound healing and instructed to increase protein and vitamin C intake. Patient verbalized understanding. Patient will follow up at wound healing center in two week or sooner if needed. Discussed red flag symptoms of infection that require urgent medical attention. This note was generated with [employer] dictation software. It may contain incorrect words, spelling, and punctuation that were not noted in checking the note before signing. Code Visit 111xxx-[id number]: [id number] [place] subq tissue 20 sq cm/<
--- NOTE | 2017-12-25 15:07 | PN.PCM_ITS ---
(1) Traumatic hematoma of left lower leg Status: Acute Current Visit: Yes Qualifiers: Encounter type: initial encounter Qualified Code(s): S80.12XA - Contusion of left lower leg, initial encounter Code(s): S80.12XA - Contusion of left lower leg, initial encounter (2) Wound of left lower extremity Status: Acute Current Visit: Yes Code(s): S81.802A - Unspecified open wound, left lower leg, initial encounter (3) Abnormal ankle brachial index (SAHIL) Status: Acute Current Visit: Yes Code(s): R68.89 - Other general symptoms and signs (4) Bilateral lower extremity edema Status: Acute Current Visit: Yes Code(s): R60.0 - Localized edema (5) Decreased dorsalis pedis pulse Status: Acute Current Visit: Yes Code(s): R09.89 - Other specified symptoms and signs involving the circulatory and respiratory systems Type of Wound Date of Service: 12/24/17 Chief Complaint: hematoma left lower extremity x 2 anterior surface medial and lateral History of Wound: This is an 82-year-old white female who presents to the wound healing center with complaints of traumatic hematomas to the left lower extremity and bilateral lower extremity edema. She has a past medical history as listed above. It should be noted that she has persistent atrial fibrillation and on chronic Coumadin therapy. The patient states that she was carrying her dog and fell on 11/09/2017 and presented to the emergency department. An x-ray of her left ankle was negative at that time. She states that shortly after she noticed an increase in redness and swelling to her left lower extremity. She had a venous duplex ultrasound which was negative for DVT and she had a repeat ultrasound on 11/17/2017 which demonstrated to areas of the left lower extremity consistent with either an abscess or probable seroma which measured 4.9 cm and the other 6.4 cm. She states that she has been utilizing no compression and has been utilizing triple antibiotic ointment and ice. She denies any signs of sy stemi infection at this time and does state that the redness and warmth has diminished greatly. She denies any other aggravating or relieving factors. She does note occasional serous discharge. The patient otherwise denies any fever, chills, nausea, vomiting, shortness of breath, chest pain or pressure, palpitations, orthopnea, lower extremity edema, syncope or presyncopal episodes. Progress of Wound: Both anterior and medial sites on left lower extremity traumatic hematoma are now open and draining a small amount of serosanguinous fluid, depths are improving, patient denies any signs and symptoms of infection at this time. Denies any fever, chills, nausea, vomitting, sob, cp, syncope or prescyncopal episodes. Pt completed doxy and flagyl. Patient was seen by general surgery who did a debridement in the office and is holding off on surgical debridement at this time. Patient states that they did not want her using the wound VAC. She states she has been doing daily wet to dry dressings. - Physical Exam Vital Signs Temp Pulse Resp BP 97.1 F L 97 16 114/74 12/24/17 13:04 12/24/17 13:04 12/24/17 13:04 12/24/17 13:04 General: Alert, Oriented x3, Cooperative, No apparent distress HEENT: Atraumatic Oral: Moist Mucosa Neck: Supple Cardiovascular: Regular rate Extremities: No clubbing, No cyanosis, Diminished Peripheral Pulses, Edema - 1+ left lower extremity edema Skin: Ulcer/ Wound - Left medial and lateral wound to the lower extremity with some adherent slough to wound edges, wound bed is granular, no surrounding f luctuance noted at this time. See nursing documentation on dimensions of wounds. No warmth or tenderness. No purulent drainage or malodor. Wound Measurements and Assessment WC - Nurse 1 - General Ulcer Measurement Start: 12/10/17 13:20 Freq: Status: Active Protocol: Activity Type Activity Date Activity User E-Sign Co-Sign Detail Recorded Client Recorded Date Recorded By Document 12/24/17 13:04 [facility] [id number] 12/24/17 13:23 [facility] 12/24/17 13:04 Wound Center Nurse 1 [Ulcer Assessment] 2. L lateral chow -Combined with other wound No -Current Size (cm) - Length 3.8 -Current Size (cm) - Width 5.1 -Current Size (cm) - Depth 1.8 -Total Square Cm 19.38 -Date of Last Picture (Recall this 12/24/17 field) -Photo Taken No -Epithelialization None Present -Tunneling Yes -Tunneling Position (O'clock) 1 -Tunneling Distance (cm) 5.1 -Undermining/Tunneling Yes -Undermining/Tunneling Starts (O' 10 clock) -Undermining/Tunneling Ends (O'clock) 2 -Maximum Distance (cm) 2.1 -Exudate Amt Large (67-100%) -Exudate Type Serosanguineous -Wound Margin Distinct, Outline Attached -Granulation Amt Large (67-100%) -Granulation Quality Red -Slough/Fibrin Yes -Necrosis Amt Small (1-33%) -Necrotic Tissue Type Adherent Slough -Structure Exposed Muscle Fat Layer Exposed -Texture (Maryse-wound Skin Appearance) Scarring -Moisture (Maryse-wound Skin Appearance Assessed ) Dry/Scaly -Color (Maryse-wound Skin Appearance) Assessed Erythema Hemosiderin Staining -Temperature (Maryse-wound Skin No Abnormality Appearance) (Pt Warm) -Tenderness on Palpation (Maryse-wound No Skin Appearance) -Ulcer Cleansing Rinsed/ Irrigated with Saline -Foul Odor after Cleansing No -Anesthetic Used 4% Lidocaine Solution 1. L medial chow -Combined with other wound No -Current Size (cm) - Length 1.4 -Current Size (cm) - Width 1.5 -Current Size (cm) - Depth 0.8 -Total Square Cm 2.10 -Date of Last Picture (Recall this 12/24/17 field) -Photo Taken Yes -Epithelialization None Present -Tunneling Yes -Tunneling Position (O'clock) 1 -Tunneling Distance (cm) 6.9 -Undermining/Tunneling No -Circular Undermining No -Exudate Amt Medium (34-66%) -Exudate Type Serosanguineous -Wound Margin Distinct, Outline Attached -Granulation Amt Large (67-100%) -Granulation Quality Red -Slough/Fibrin Yes -Necrosis Amt Small (1-33%) -Texture (Maryse-wound Skin Appearance) Scarring -Moisture (Maryse-wound Skin Appearance Dry/Scaly ) -Color (Mrayse-wound Skin Appearance) Erythema Hemosiderin Staining -Temperature (Maryse-wound Skin No Abnormality Appearance) (Pt Warm) -Tenderness on Palpation (Maryse-wound No Skin Appearance) -Ulcer Cleansing Rinsed/ Irrigated with Saline -Foul Odor after Cleansing No -Anesthetic Used 4% Lidocaine Solution [Edema Assessment] -Lower Limb Edema Present Yes -Left Calf (cm) 41.7 -Left Ankle (cm) 28.7 WC - Nurse 2 - General Ulcer CM Notes Start: 12/10/17 13:20 Freq: Status: Active Protocol: Activity Type Activity Date Activity User E-Sign Co-Sign Detail Recorded Client Recorded Date Recorded By Document 12/24/17 13:59 [id number] 12/24/17 14:02 12/24/17 13:59 Wound Center Nurse 2 [Procedure/Treatment] 2. L lateral chow -Time 13:59 -Correct Patient Yes -Correct Side, Site, Position Yes -Correct Procedure Yes -Procedure Performed Yes -Type of Procedure Debridement -Clinical Debridement Subcutaneous -Post Debridement Size (cm) - Length 4.1 -Post Debridement Size (cm) - Width 5.7 -Post Debridement Size (cm) - Depth 1.6 -Total Square Cm 23.37 -Wound/Ulcer Outcome Not Healed -Ulcer Cleansing Rinsed/ Irrigated with Saline -Foul Odor after Cleansing No -Bioengineered Tissue No -Topical Lidocaine (%) 4 -Bleeding Controlled with Pressure -Other tunneling 1-3 oclock 5.9cm -Treatment Response Procedure Tolerated Well 1. L medial chow -Time 14:00 -Correct Patient Yes -Correct Side, Site, Position Yes -Correct Procedure Yes -Procedure Performed Yes -Type of Procedure Debridement -Clinical Debridement Subcutaneous -Post Debridement Size (cm) - Length 1.6 -Post Debridement Size (cm) - Width 1.5 -Post Debridement Size (cm) - Depth 1.1 -Total Square Cm 2.40 -Wound/Ulcer Outcome Not Healed -Ulcer Cleansing Rinsed/ Irrigated with Saline -Foul Odor after Cleansing No -Bioengineered Tissue No -Topical Lidocaine (%) 4 -Bleeding Controlled with Pressure -Other tunneling/ undermining 11- 1 oclock 6.0cm -Treatment Response Procedure Tolerated Well [See Physician Procedure note for Specifics] Pain Scale: 0-10 Numeric [Pain] -Is Patient Pain Free? Yes Neurological: Neuro grossly intact Psych/Mental Status: Normal Affect, Appropriate, Alert and oriented to time, place, person, mood and affect Debridement Note Post-Debridement Measurements/Treatment WC - Nurse 2 - General Ulcer CM Notes Start: 12/10/17 13:20 Freq: Status: Active Protocol: Activity Type Activity Date Activity User E-Sign Co-Sign Detail Recorded Client Recorded Date Recorded By Document 12/10/17 14:45 [id number] 12/10/17 14:47 CS Document 12/24/17 13:59 [id number] 12/24/17 14:02 TM 12/10/17 12/24/17 14:45 13:59 Wound Center Nurse 2 2. L lateral chow -Time 14:45 13:59 -Correct Patient Yes Yes -Correct Side, Site, Position Yes Yes -Correct Procedure Yes Yes -Procedure Performed Yes Yes -Type of Procedure Debridement Debridement -Clinical Debridement Muscle Subcutaneous -Post Debridement Size (cm) - Length 4 4.1 -Post Debridement Size (cm) - Width 6.1 5.7 -Post Debridement Size (cm) - Depth 4 1.6 -Total Square Cm 24.4 23.37 -Wound/Ulcer Outcome Not Healed Not Healed -Ulcer Cleansing Not Cleansed Rinsed/ Irrigated with Saline -Foul Odor after Cleansing No No -Bioengineered Tissue No No -Topical Lidocaine (%) 4 -Bleeding Controlled with Pressure Pressure -Other tunneling 1-3 oclock 5.9cm -Treatment Response Procedure Procedure Tolerated Well Tolerated Well 1. L medial chow -Time 14:45 14:00 -Correct Patient Yes Yes -Correct Side, Site, Position Yes Yes -Correct Procedure Yes Yes -Procedure Performed Yes Yes -Type of Procedure Debridement Debridement -Clinical Debridement Subcutaneous Subcutaneous -Post Debridement Size (cm) - Length 1.2 1.6 -Post Debridement Size (cm) - Width 1 1.5 -Post Debridement Size (cm) - Depth 3.1 1.1 -Total Square Cm 1.2 2.40 -Wound/Ulcer Outcome Not Healed Not Healed -Ulcer Cleansing Not Cleansed Rinsed/ Irrigated with Saline -Foul Odor after Cleansing No No -Bioengineered Tissue No No -Topical Lidocaine (%) 4 -Bleeding Controlled with Pressure Pressure -Other tunneling/ undermining 11- 1 oclock 6.0cm -Treatment Response Procedure Procedure Tolerated Well Tolerated Well Pain Scale: 0-10 Numeric Is Patient Pain Free? Yes Yes Wound debrided: Left medial and lateral lower extremity wound Laterality: Left Type of Debridement: Excisional debridement Anesthesia Used: 5% Lidocaine Gel Depth: in the subcutaneous layer Percentage of wound debrided: 100 Instrument Used: 7mm curette Tissue Removed: Slough and devitalized tissue Severity: Fat Layer Exposed Amount of bleeding with debridement: Mild Bleeding Controlled with: Pressure Patient tolerated procedure well Assessment/Plan Active Problems (Last Reviewed 12/22/17 @ 14:21 by Karina Londono) Traumatic hematoma of left lower leg (Acute) Bilateral lower extremity edema (Acute) Decreased dorsalis pedis pulse (Acute) Abnormal ankle brachial index (SAHIL) (Acute) Wound of left lower extremity (Acute) Assessment: See above diagnoses Plan: The patient was seen and examined at the wound center today and was updated on the plan of care. A subcutaneous debridement was performed today. The patient tolerated the procedure well. The previous hematoma sites on the left lower extremity continue to be open and draining small amount of serosanguineous discharge. There is extensive undermining and tunneling present and patient did have an outpatient consult with general surgery who per patient stated that no surgery was indicated and wants her to hold off on using the wound VAC. Wound cultures were collected previously and demonstrated staph lugdunesis, capitis , corynebacterium, anaerobic cocci and clostridium species, pt completed a course of Flagyl and doxy. She has been monitoring her INR more frequently due to being on the antibiotics and her PCP has been adjusting her Coumadin appropriately. The patients wound care will consist of: aquacell silver and double Tubigrip. No further compression at this time due to screening SAHIL being abnormal to the left SAHIL 1.5 and right SAHIL 1.3. Baseline bloodwork reviewed from ER notes and essentially within normal limits, recent venous duplex, ultrasound, and x-ray reviewed as well. Vascular studies ordered. [employer] vac approved prior and is on hold at this time. Patient educated on the importance of diet on wound healing and instructed to increase protein and vitamin C intake. Patient verbalized understanding. Patient will follow up at wound healing center in two week or sooner if needed. Discussed red flag symptoms of infection that require urgent medical attention. This note was generated with [employer] dictation software. It may contain incorrect words, spelling, and punctuation that were not noted in checking the note before signing. Code Visit 111xxx-113xx: [id number] [place] subq tissue 20 sq cm/<
[2018-01-07 14:13] VITALS: BP 120/70; PULSE 84; RESP 18; TEMP 36
--- NOTE | 2018-01-07 20:29 | PCM.WC.PN ---
(1) Traumatic hematoma of left lower leg Status: Acute Qualifiers: Encounter type: initial encounter Qualified Code(s): S80.12XA - Contusion of left lower leg, initial encounter Code(s): S80.12XA - Contusion of left lower leg, initial encounter (2) Wound of left lower extremity Status: Acute Code(s): S81.802A - Unspecified open wound, left lower leg, initial encounter (3) Abnormal ankle brachial index (SAHIL) Status: Acute Code(s): R68.89 - Other general symptoms and signs (4) Bilateral lower extremity edema Status: Acute Code(s): R60.0 - Localized edema (5) Decreased dorsalis pedis pulse Status: Acute Code(s): R09.89 - Other specified symptoms and signs involving the circulatory and respiratory systems Type of Wound Date of Service: 01/07/18 Chief Complaint: hematoma left lower extremity x 2 anterior surface medial and lateral History of Wound: This is an 82-year-old white female who presents to the wound healing center with complaints of traumatic hematomas to the left lower extremity and bilateral lower extremity edema. She has a past medical history as listed above. It should be noted that she has persistent atrial fibrillation and on chronic Coumadin therapy. The patient states that she was carrying her dog and fell on 11/09/2017 and presented to the emergency department. An x-ray of her left ankle was negative at that time. She states that shortly after she noticed an increase in redness and swelling to her left lower extremity. She had a venous duplex ultrasound which was negative for DVT and she had a repeat ultrasound on 11/17/2017 which demonstrated to areas of the left lower extremity consistent with either an abscess or probable seroma which measured 4.9 cm and the other 6.4 cm. She states that she has been utilizing no compression and has been utilizing triple antibiotic ointment and ice. She denies any signs of systemic infection at this time and does state that the redness and warmth has diminished greatly. She denies any other aggravating or relieving factors. She does note occasional serous discharge. The patient otherwise denies any fever, chills, nausea, vomiting, shortness of breath, chest pain or pressure, palpitations, orthopnea, lower extremity edema, syncope or presyncopal episodes. Progress of Wound: Both anterior and medial sites on left lower extremity traumatic hematoma remain open and draining a small amount of serosanguinous fluid, depths are improving, patient denies any signs and symptoms of infection at this time. Denies any fever, chills, nausea, vomitting, sob, cp, syncope or prescyncopal episodes. Pt completed doxy and flagyl. Patient was seen by general surgery who did a debridement in the office and is holding off on surgical debridement at this time. Patient states that they did not want her using the wound VAC. She states she has been doing well with daily aquacell silver dressings. Does have a follow up with general surgery next week. - Physical Exam Vital Signs Temp Pulse Resp BP 96.8 F L 84 18 120/70 01/07/18 14:13 01/07/18 14:13 01/07/18 14:13 01/07/18 14:13 General: Alert, Oriented x3, Cooperative, No apparent distress HEENT: Atraumatic Cardiovascular: Regular rate Abdomen: Soft, Non Tender, Non-Distended Extremities: No clubbing, No cyanosis, Diminished Peripheral Pulses, Edema - generalized BLLE edema Skin: Ulcer/ Wound - Wound present left medial and lateral lower extremity without signs of infection at this time, no eschar present, there is large amount of slough in wound bed, however underneath granular Tory tissue present and no malodor or signs of infection. Slight serous drainage present. Neurological: Neuro grossly intact Psych/Mental Status: Normal Affect, Appropriate, Alert and oriented to time, place, person, mood and affect Debridement Note Post-Debridement Measurements/Treatment WC - Nurse 2 - General Ulcer CM Notes Start: 12/10/17 13:20 Freq: Status: Active Protocol: Activity Type Activity Date Activity User E-Sign Co-Sign Detail Recorded Client Recorded Date Recorded By Document 12/10/17 14:45 [id number] 12/10/17 14:47 CS Document 12/24/17 13:59 [id number] 12/24/17 14:02 TM Document 01/07/18 14:36 CS [id number] 01/07/18 14:40 CS 12/10/17 12/24/17 01/07/18 14:45 13:59 14:36 Wound Center Nurse 2 2. L lateral chow -Time 14:45 13:59 14:36 -Correct Patient Yes Yes Yes -Correct Side, Site, Position Yes Yes Yes -Correct Procedure Yes Yes Yes -Procedure Performed Yes Yes Yes -Type of Procedure Debridement Debridement Debridement -Clinical Debridement Muscle Subcutaneous Subcutaneous -Post Debridement Size (cm) - Length 4 4.1 3 -Post Debridement Size (cm) - Width 6.1 5.7 2.9 -Post Debridement Size (cm) - Depth 4 1.6 1.5 -Total Square Cm 24.4 23.37 8.7 -Wound/Ulcer Outcome Not Healed Not Healed Not Healed -Ulcer Cleansing Not Cleansed Rinsed/ Not Cleansed Irrigated with Saline -Foul Odor after Cleansing No No No -Bioengineered Tissue No No No -Topical Lidocaine (%) 4 -Bleeding Controlled with Pressure Pressure Pressure -Other tunneling 1-3 oclock 5.9cm -Offloading No -Treatment Response Procedure Procedure Tolerated Well Tolerated Well 1. L medial chow -Time 14:45 14:00 14:38 -Correct Patient Yes Yes Yes -Correct Side, Site, Position Yes Yes Yes -Correct Procedure Yes Yes Yes -Procedure Performed Yes Yes Yes -Type of Procedure Debridement Debridement Debridement -Clinical Debridement Subcutaneous Subcutaneous Subcutaneous -Post Debridement Size (cm) - Length 1.2 1.6 0.8 -Post Debridement Size (cm) - Width 1 1.5 1.0 -Post Debridement Size (cm) - Depth 3.1 1.1 0.8 -Total Square Cm 1.2 2.40 0.80 -Wound/Ulcer Outcome Not Healed Not Healed Not Healed -Ulcer Cleansing Not Cleansed Rinsed/ Not Cleansed Irrigated with Saline -Foul Odor after Cleansing No No No -Bioengineered Tissue No No No -Topical Lidocaine (%) 4 -Bleeding Controlled with Pressure Pressure Pressure -Other tunneling/ undermining 11- 1 oclock 6.0cm -Offloading No -Treatment Response Procedure Procedure Tolerated Well Tolerated Well Pain Scale: 0-10 Numeric Is Patient Pain Free? Yes Yes Yes Wound debrided: Left lateral and medial lower extremity wound Laterality: Left Type of Debridement: Excisional debridement Anesthesia Used: 5% Lidocaine Gel Depth: in the subcutaneous layer Percentage of wound debrided: 100 Instrument Used: 5mm curette Tissue Removed: Slough and devitalized tissue Severity: Fat Layer Exposed Amount of bleeding with debridement: Mild Bleeding Controlled with: Pressure Patient tolerated procedure well Assessment/Plan Assessment: See above diagnoses Plan: The patient was seen and examined at the wound center today and was updated on the plan of care. A subcutaneous debridement was performed today. The patient tolerated the procedure well. The previous hematoma sites on the left lower extremity continue to be open and draining small amount of serosanguineous discharge. There is extensive undermining and tunneling present and patient did have an outpatient consult with general surgery who per patient stated that no surgery was indicated and wants her to hold off on using the wound VAC. Wound cultures were collected previously and demonstrated staph lugdunesis, capitis , corynebacterium, anaerobic cocci and clostridium species, pt completed a course of Flagyl and doxy. She has been monitoring her INR more frequently due to being on the antibiotics and her PCP has been adjusting her Coumadin appropriately. The patients wound care will consist of: aquacell silver daily dressing changes and double Tubigrip. No further compression at this time due to screening SAHIL being abnormal to the left SAHIL 1.5 and right SAHIL 1.3. Baseline bloodwork reviewed from ER notes and essentially within normal limits, recent venous duplex, ultrasound, and x-ray reviewed as well. Vascular studies ordered and pending. [employer] vac approved prior and is on hold at this time. Patient educated on the importance of diet on wound healing and instructed to increase protein and vitamin C intake. Patient verbalized understanding. Patient will follow up at wound healing center in two week or sooner if needed. She does have a follow-up appointment with her surgeon's office next week. Discussed red flag symptoms of infection that require urgent medical attention. This note was generated with [employer] dictation software. It may contain incorrect words, spelling, and punctuation that were not noted in checking the note before signing. Code Visit 111xxx-113xx: [id number] [place] subq tissue 20 sq cm/<
--- NOTE | 2018-01-12 10:34 | PN.PCM_ITS ---
(1) Traumatic hematoma of left lower leg Status: Acute Qualifiers: Encounter type: initial encounter Qualified Code(s): S80.12XA - Contusion of left lower leg, initial encounter Code(s): S80.12XA - Contusion of left lower leg, initial encounter (2) Wound of left lower extremity Status: Acute Code(s): S81.802A - Unspecified open wound, left lower leg, initial encounter (3) Abnormal ankle brachial index (SAHIL) Status: Acute Code(s): R68.89 - Other general symptoms and signs (4) Bilateral lower extremity edema Status: Acute Code(s): R60.0 - Localized edema (5) Decreased dorsalis pedis pulse Status: Acute Code(s): R09.89 - Other specified symptoms and signs involving the circulatory and respiratory systems Type of Wound Date of Service: 01/07/18 Chief Complaint: hematoma left lower extremity x 2 anterior surface medial and lateral History of Wound: This is an 82-year-old white female who presents to the wound healing center with complaints of traumatic hematomas to the left lower extremity and bilateral lower extremity edema. She has a past medical history as listed above. It should be noted that she has persistent atrial fibrillation and on chronic Coumadin therapy. The patient states that she was carrying her dog and fell on 11/09/2017 and presented to the emergency department. An x-ray of her left ankle was negative at that time. She states that shortly after she noticed an increase in redness and swelling to her left lower extremity. She had a venous duplex ultrasound which was negative for DVT and she had a repeat ultrasound on 11/17/2017 which demonstrated to areas of the left lower extremity consistent with either an abscess or probable seroma which measured 4.9 cm and the other 6.4 cm. She states that she has been utilizing no compression and has been utilizing triple antibiotic ointment and ice. She denies any signs of systemic infection at this time and does state that the redness and warmth has diminished greatly. She denies any other aggravating or relieving factors. She does note occasional serous discharge. The patient otherwise denies any fever, chills, nausea, vomiting, shortness of breath, chest pain or pressure, palpitations, orthopnea, lower extremity edema, syncope or presyncopal episodes. Progress of Wound: Both anterior and medial sites on left lower extremity traumatic hematoma remain open and draining a small amount of serosanguinous fluid, depths are improving, patient denies any signs and symptoms of infection at this time. Denies any fever, chills, nausea, vomitting, sob, cp, syncope or prescyncopal episodes. Pt completed doxy and flagyl. Patient was seen by general surgery who did a debridement in the office and is holding off on surgical debridement at this time. Patient states that they did not want her using the wound VAC. She states she has been doing well with daily aquacell si lver dressings. Does have a follow up with general surgery next week. - Physical Exam Vital Signs Temp Pulse Resp BP 96.8 F L 84 18 120/70 01/07/18 14:13 01/07/18 14:13 01/07/18 14:13 01/07/18 14:13 General: Alert, Oriented x3, Cooperative, No apparent distress HEENT: Atraumatic Cardiovascular: Regular rate Abdomen: Soft, Non Tender, Non-Distended Extremities: No clubbing, No cyanosis, Diminished Peripheral Pulses, Edema - generalized BLLE edema Skin: Ulcer/ Wound - Wound present left medial and lateral lower extremity without signs of infection at this time, no eschar present, there is large amount of slough in wound bed, however underneath granular Tory tissue present and no malodor or signs of infection. Slight serous drainage present. Neurological: Neuro grossly intact Psych/Mental Status: Normal Affect, Appropriate, Alert and oriented to time, place, person, mood and affect Debridement Note Post-Debridement Measurements/Treatment WC - Nurse 2 - General Ulcer CM Notes Start: 12/10/17 13:20 Freq: Status: Active Protocol: Activity Type Activity Date Activity User E-Sign Co-Sign Detail Recorded Client Recorded Date Recorded By Document 12/10/17 14:45 [id number] 12/10/17 14:47 CS Document 12/24/17 13:59 [id number] 12/24/17 14:02 TM Document 01/07/18 14:36 CS [id number] 01/07/18 14:40 CS 12/10/17 12/24/17 01/07/18 14:45 13:59 14:36 Wound Center Nurse 2 2. L lateral chow -Time 14:45 13:59 14:36 -Correct Patient Yes Yes Yes -Correct Side, Site, Position Yes Yes Yes -Correct Procedure Yes Yes Yes -Procedure Performed Yes Yes Yes -Type of Procedure Debridement Debridement Debridement -Clinical Debridement Muscle Subcutaneous Subcutaneous -Post Debridement Size (cm) - Length 4 4.1 3 -Post Debridement Size (cm) - Width 6.1 5.7 2.9 -Post Debridement Size (cm) - Depth 4 1.6 1.5 -Total Square Cm 24.4 23.37 8.7 -Wound/Ulcer Outcome Not Healed Not Healed Not Healed -Ulcer Cleansing Not Cleansed Rinsed/ Not Cleansed Irrigated with Saline -Foul Odor after Cleansing No No No -Bioengineered Tissue No No No -Topical Lidocaine (%) 4 -Bleeding Controlled with Pressure Pressure Pressure -Other tunneling 1-3 oclock 5.9cm -Offloading No -Treatment Response Procedure Procedure Tolerated Well Tolerated Well 1. L medial chow -Time 14:45 14:00 14:38 -Correct Patient Yes Yes Yes -Correct Side, Site, Position Yes Yes Yes -Correct Procedure Yes Yes Yes -Procedure Performed Yes Yes Yes -Type of Procedure Debridement Debridement Debridement -Clinical Debridement Subcutaneous Subcutaneous Subcutaneous -Post Debridement Size (cm) - Length 1.2 1.6 0.8 -Post Debridement Size (cm) - Width 1 1.5 1.0 -Post Debridement Size (cm) - Depth 3.1 1.1 0.8 -Total Square Cm 1.2 2.40 0.80 -Wound/Ulcer Outcome Not Healed Not Healed Not Healed -Ulcer Cleansing Not Cleansed Rinsed/ Not Cleansed Irrigated with Saline -Foul Odor after Cleansing No No No -Bioengineered Tissue No No No -Topical Lidocaine (%) 4 -Bleeding Controlled with Pressure Pressure Pressure -Other tunneling/ undermining 11- 1 oclock 6.0cm -Offloading No -Treatment Response Procedure Procedure Tolerated Well Tolerated Well Pain Scale: 0-10 Numeric Is Patient Pain Free? Yes Yes Yes Wound debrided: Left lateral and medial lower extremity wound Laterality: Left Type of Debridement: Excisional debridement Anesthesia Used: 5% Lidocaine Gel Depth: in the subcutaneous layer Percentage of wound debrided: 100 Instrument Used: 5mm curette Tissue Removed: Slough and devitalized tissue Severity: Fat Layer Exposed Amount of bleeding with debridement: Mild Bleeding Controlled with: Pressure Patient tolerated procedure well Assessment/Plan Assessment: See above diagnoses Plan: The patient was seen and examined at the wound center today and was updated on the plan of care. A subcutaneous debridement was performed today. The patient tolerated the procedure well. The previous hematoma sites on the left lower extremity continue to be open and draining small amount of serosanguineous discharge. There is extensive undermining and tunneling present and patient did have an outpatient consult with general surgery who per patient stated that no surgery was indicated and wants her to hold off on using the wound VAC. Wound cultures were collected previously and demonstrated staph lugdunesis, capitis , corynebacterium, anaerobic cocci and clostridium species, pt completed a course of Flagyl and doxy. She has been monitoring her INR more frequently due to being on the antibiotics and her PCP has been adjusting her Coumadin appropriately. The patients wound care will consist of: aquacell silver daily dressing changes and double Tubigrip. No further compression at this time due to screening SAHIL being abnormal to the left SAHIL 1.5 and right ASHIL 1.3. Baseline bloodwork reviewed from ER notes and essentially within normal limits, recent venous duplex, ultrasound, and x-ray reviewed as well. Vascular studies ordered and pending. [facility] vac approved prior and is on hold at this time. Patient educated on the importance of diet on wound healing and instructed to increase protein and vitamin C intake. Patient verbalized understanding. Patient will follow up at wound healing center in two week or sooner if needed. She does have a follow-up appointment with her surgeon's office next week. Discussed red flag symptoms of infection that require urgent medical attention. This note was generated with [employer] dictation software. It may contain incorrect words, spelling, and punctuation that were not noted in checking the note before signing. Code Visit [id number]: [id number] [place] subq tissue 20 sq cm/<
== END 2018-01-08 23:59 ==
LOC: WC 14:00
PROVIDERS: Family Provider Internal Medicine; PCP Internal Medicine; Visit Provider Nurse Practitioner Family
DX: S80.12XA Contusion of left lower leg, initial encounter (principal); W19.XXXA Unspecified fall, initial encounter; R60.0 Localized edema; I48.1 Persistent atrial fibrillation; Z79.01 Long term (current) use of anticoagulants; R68.89 Other general symptoms and signs
CPT/HCPCS: 11042; 11043; 11045; 11046

== ENCOUNTER 2018-02-01 10:00 | Outpatient (RCR) | payer MEDICARE, OTHER, SELFPAY ==
[2018-01-09 01:38] VITALS: BP 120/70; PULSE 84; RESP 18; TEMP 36
[2018-01-22 10:12] VITALS: BP 121/69; PULSE 93; RESP 18; TEMP 36.2
--- NOTE | 2018-01-22 17:37 | PN.PCM_ITS ---
(1) Wound of left lower extremity Status: Chronic Current Visit: Yes Code(s): S81.802A - Unspecified open wound, left lower leg, initial encounter (2) Bilateral lower extremity edema Status: Chronic Current Visit: Yes Code(s): R60.0 - Localized edema (3) Decreased dorsalis pedis pulse Status: Chronic Current Visit: Yes Code(s): R09.89 - Other specified symptoms and signs involving the circulatory and respiratory systems Type of Wound Date of Service: 01/22/18 Chief Complaint: hematoma left lower extremity x 2 anterior surface History of Wound: This is an 82-year-old white female who presents to the wound healing center with complaints of traumatic hematomas to the left lower extremity and bilateral lower extremity edema. She has a past medical history as listed above. It should be noted that she has persistent atrial fibrillation and on chronic Coumadin therapy. The patient states that she was carrying her dog and fell on 11/09/2017 and presented to the emergency department. An x-ray of her left ankle was negative at that time. She states that shortly after she noticed an increase in redness and swelling to her left lower extremity. She had a venous duplex ultrasound which was negative for DVT and she had a repeat ultrasound on 11/17/2017 which demonstrated to areas of the left lower extremity consistent with either an abscess or probable seroma which measured 4.9 cm and the other 6.4 cm. She states that she has been utilizing no compression and has been utilizing triple antibiotic ointment and ice. She denies any signs of systemic infection at this time and does state that the redness and warmth has diminished greatly. She denies any other aggravating or relieving factors. She does note occasional serous discharge. The patient otherwise denies any fever, chills, nausea, vomiting, shortness of breath, chest pain or pressure, palpitations, orthopnea, lower extremity edema, syncope or presyncopal episodes. Progress of Wound: Both anterior and medial sites on left lower extremity traumatic hematoma are now open and draining a small amount of serosanguinous fluid, depths are improving, patient denies any signs and symptoms of infection at this time. Denies any fever, chills, nausea, vomiting, sob, cp, syncope or prescyncopal episodes. Pt completed doxy and flagyl. Patient was seen by general surgery who did a debridement in the office and is holding off on surgical debridement at this time. Patient states that they did not want her using the wound VAC. She states she has been doing daily wet to dry dressings. She has been doing silver dressing changes daily since coming to the wound center. - Physical Exam Vital Signs Temp Pulse Resp BP 97.1 F L 93 18 121/69 H 01/22/18 10:12 01/22/18 10:12 01/22/18 10:12 01/22/18 10:12 General: Alert, Oriented x3, Cooperative HEENT: Atraumatic Oral: Moist Mucosa Cardiovascular: Regular rate Extremities: Capillary Refill Less than 3 Seconds, Diminished Peripheral Pulses, Edema Skin: Ulcer/ Wound - Left anterior and lateral lower leg Wound Measurements and Assessment WC - Nurse 1 - General Ulcer Measurement Start: 01/22/18 10:12 Freq: Status: Active Protocol: Activity Type Activity Date Activity User E-Sign Co-Sign Detail Recorded Client Recorded Date Recorded By Document 01/22/18 10:12 [id number] 01/22/18 10:28 RB 01/22/18 10:12 Wound Center Nurse 1 [Ulcer Assessment] 2. L lateral chow -Combined with other wound No -Current Size (cm) - Length 1.5 -Current Size (cm) - Width 3 -Current Size (cm) - Depth 1.2 -Total Square Cm 4.5 -Tunneling Yes -Tunneling Position (O'clock) 2 -Tunneling Distance (cm) 2.5 -Undermining/Tunneling No -Circular Undermining No -Exudate Amt Small (1-33%) -Exudate Type Serosanguineous -Wound Margin Distinct, Outline Attached -Granulation Amt Large (67-100%) -Granulation Quality [place] -Slough/Fibrin Yes -Necrosis Amt Small (1-33%) -Necrotic Tissue Type Adherent Slough -Structure Exposed N/A -Texture (Maryse-wound Skin Appearance) Assessed -Moisture (Maryse-wound Skin Appearance Assessed ) -Color (Maryse-wound Skin Appearance) Assessed -Temperature (Maryse-wound Skin No Abnormality Appearance) (Pt Warm) -Tenderness on Palpation (Maryse-wound No Skin Appearance) -Ulcer Cleansing Rinsed/ Irrigated with Saline -Foul Odor after Cleansing No -Anesthetic Used 5% Lidocaine Gel 1. L medial chow -Combined with other wound No -Current Size (cm) - Length 0.8 -Current Size (cm) - Width 0.8 -Current Size (cm) - Depth 1.2 -Total Square Cm 0.64 -Photo Taken No -Tunneling Yes -Tunneling Position (O'clock) 12 -Tunneling Distance (cm) 2 -Tunneling Position #2 (O'clock) 3 -Undermining/Tunneling No -Circular Undermining No -Exudate Amt Small (1-33%) -Exudate Type Serosanguineous -Wound Margin Distinct, Outline Attached -Granulation Amt Large (67-100%) -Granulation Quality [place] -Slough/Fibrin Yes -Necrosis Amt Small (1-33%) -Necrotic Tissue Type Adherent Slough -Structure Exposed N/A -Texture (Maryse-wound Skin Appearance) Assessed -Moisture (Maryse-wound Skin Appearance Assessed ) -Color (Maryse-wound Skin Appearance) Assessed -Temperature (Maryse-wound Skin No Abnormality Appearance) (Pt Warm) -Tenderness on Palpation (Maryse-wound No Skin Appearance) -Ulcer Cleansing Rinsed/ Irrigated with Saline -Foul Odor after Cleansing No -Anesthetic Used 5% Lidocaine Gel [Edema Assessment] -Lower Limb Edema Present Yes -Left Calf (cm) 41.5 -Left Ankle (cm) 27 WC - Nurse 2 - General Ulcer CM Notes Start: 01/22/18 10:12 Freq: Status: Active Protocol: Activity Type Activity Date Activity User E-Sign Co-Sign Detail Recorded Client Recorded Date Recorded By Document 01/22/18 10:38 SHO [id number] 01/22/18 10:54 SHO 01/22/18 10:38 Wound Center Nurse 2 [Procedure/Treatment] 2. L lateral chow -Time 10:38 -Correct Patient Yes -Correct Side, Site, Position Yes -Correct Procedure Yes -Procedure Performed Yes -Type of Procedure Debridement -Clinical Debridement Subcutaneous -Post Debridement Size (cm) - Length 1.0 -Post Debridement Size (cm) - Width 3.5 -Post Debridement Size (cm) - Depth 0.5 -Total Square Cm 3.50 -Wound/Ulcer Outcome Not Healed -Ulcer Cleansing Rinsed/ Irrigated with Saline -Foul Odor after Cleansing No -Bioengineered Tissue No -Topical Lidocaine (%) 4 -Lidocaine (ml) 5 1. L medial chow -Time 10:38 -Correct Patient Yes -Correct Side, Site, Position Yes -Correct Procedure Yes -Procedure Performed Yes -Type of Procedure Debridement -Clinical Debridement Subcutaneous -Post Debridement Size (cm) - Length 0.7 -Post Debridement Size (cm) - Width 1.2 -Post Debridement Size (cm) - Depth 1.0 -Total Square Cm 0.84 -Wound/Ulcer Outcome Not Healed -Ulcer Cleansing Rinsed/ Irrigated with Saline -Foul Odor after Cleansing No -Bioengineered Tissue No -Topical Lidocaine (%) 4 -Lidocaine (ml) 5 -Bleeding Controlled with NA -Offloading No -Treatment Response Procedure Tolerated Well [See Physician Procedure note for Specifics] Pain Scale: 0-10 Numeric [Pain] -Is Patient Pain Free? Yes Musculoskeletal: No Tenderness to Palpation of Joints or Extremities Neurological: Neuro grossly intact Psych/Mental Status: Normal Affect, Appropriate Debridement Note Post-Debridement Measurements/Treatment WC - Nurse 2 - General Ulcer CM Notes Start: 01/22/18 10:12 Freq: Status: Active Protocol: Activity Type Activity Date Activity User E-Sign Co-Sign Detail Recorded Client Recorded Date Recorded By Document 01/22/18 10:38 SHO [id number] 01/22/18 10:54 SHO 01/22/18 10:38 Wound Center Nurse 2 2. L lateral chow -Time 10:38 -Correct Patient Yes -Correct Side, Site, Position Yes -Correct Procedure Yes -Procedure Performed Yes -Type of Procedure Debridement -Clinical Debridement Subcutaneous -Post Debridement Size (cm) - Length 1.0 -Post Debridement Size (cm) - Width 3.5 -Post Debridement Size (cm) - Depth 0.5 -Total Square Cm 3.50 -Wound/Ulcer Outcome Not Healed -Ulcer Cleansing Rinsed/ Irrigated with Saline -Foul Odor after Cleansing No -Bioengineered Tissue No -Topical Lidocaine (%) 4 -Lidocaine (ml) 5 1. L medial chow -Time 10:38 -Correct Patient Yes -Correct Side, Site, Position Yes -Correct Procedure Yes -Procedure Performed Yes -Type of Procedure Debridement -Clinical Debridement Subcutaneous -Post Debridement Size (cm) - Length 0.7 -Post Debridement Size (cm) - Width 1.2 -Post Debridement Size (cm) - Depth 1.0 -Total Square Cm 0.84 -Wound/Ulcer Outcome Not Healed -Ulcer Cleansing Rinsed/ Irrigated with Saline -Foul Odor after Cleansing No -Bioengineered Tissue No -Topical Lidocaine (%) 4 -Lidocaine (ml) 5 -Bleeding Controlled with NA -Offloading No -Treatment Response Procedure Tolerated Well Pain Scale: 0-10 Numeric Is Patient Pain Free? Yes Wound debrided: Left medial lower leg Type of Debridement: Excisional debridement Anesthesia Used: 4% Lidocaine Solution, 5% Lidocaine Gel Depth: Down to and including healthy tissue, in the subcutaneous layer Percentage of wound debrided: 100 Instrument Used: 3mm curette Tissue Removed: Subcutaneous tissue and slough Severity: Limited To Skin Breakdown Amount of bleeding with debridement: Mild Bleeding Controlled with: Pressure Patient tolerated procedure well - Additional Wound Wound debrided: Left lateral lower extremity Laterality: Left Type of Debridement: Excisional debridement Anesthesia Used: 4% Lidocaine Solution Depth: Down to and including healthy tissue, in the subcutaneous layer Percentage of wound debrided: 100 Instrument Used: 3mm curette Tissue Removed: Subcutaneous tissue and slough Severity: Fat Layer Exposed Amount of bleeding with debridement: Mild Bleeding Controlled with: Pressure, Compression and gauze Patient tolerated procedure: Patient tolerated procedure well Assessment/Plan Active Problems (Last Reviewed 01/12/18 @ 12:28 by Aure Garland) Bilateral lower extremity edema (Chronic) Decreased dorsalis pedis pulse (Chronic) Wound of left lower extremity (Chronic) Assessment: See above diagnoses Plan: The patient was seen and examined at the wound center today and was updated on the plan of care. A subcutaneous debridement was performed today. The patient tolerated the procedure well. The previous hematoma sites on the left lower extremity continue to be open and draining small amount of serosanguineous discharge. There is extensive undermining and tunneling present and patient did have an outpatient consult with general surgery who per patient stated that no surgery was indicated and wants her to hold off on using the wound VAC. Wound cultures were collected previously and demonstrated staph lugdunesis, capitis , corynebacterium, anaerobic cocci and clostridium species, pt completed a course of Flagyl and doxy. She has been monitoring her INR more frequently due to being on the antibiotics and her PCP has been adjusting her Coumadin appropriately. The patients wound care will consist of: aquacell silver and double Tubigrip. No further compression at this time due to screening SAHIL being abnormal to the left SAHIL 1.5 and right SAHIL 1.3. Baseline bloodwork reviewed from ER notes and essentially within normal limits, recent venous duplex, ultrasound, and x-ray reviewed as well. Vascular studies ordered. [facility] vac approved prior but patient has returned it so she is not charged for it. Patient educated on the importance of diet on wound healing and instructed to increase protein and vitamin C intake. Patient verbalized understanding. Patient will follow up at wound healing center in one week with Claudia Prajapati, since this was a courtesy visit. Discussed red flag symptoms of infection that require urgent medical attention. Stressed the importance of increased protein intake daily since she has only been drinking an ensure shake every other day. This note was generated with [employer] dictation software. It may contain incorrect words, spelling, and punctuation that were not noted in checking the note before signing. Code Visit 111xxx-113xx: [id number] [place] subq tissue 20 sq cm/<
--- OUTSIDE RECORDS SUMMARY | 2018-03-09 20:14 | XMS RPT_ITS ---
:1935 Author Organization OHIP Support Name Relationship Address Phone INGE BETANCOURTON Unavailable [address] + [place] [address] SERAFIN, TROY Unavailable . + [place] [address] R Unavailable Unavailable Unavailable SERAFIN, BERT Unavailable [address] + [place] [address] SERAFIN, TROY Unavailable . + [place] [address] R Unavailable Unavailable Unavailable SERAFIN, BERT Unavailable [address] + [place] [address] SERAFIN, TROY Unavailable . + [place] [address] R Unavailable Unavailable Unavailable SERAFIN, BERT Unavailable [address] + [place] [address] SERAFIN, TROY Unavailable . + [place] [address] R Unavailable Unavailable Unavailable SERAFIN, BERT Unavailable [address] + [place] [address] SERAFIN, TROY Unavailable . + [place] [address] R Unavailable Unavailable Unavailable SERAFIN, BERT Unavailable [address] + [place] [address] SERAFIN, TROY Unavailable . + [place] [address] R Unavailable Unavailable Unavailable SERAFIN, BERT Unavailable [address] + [place] [address] SERAFIN, TROY Unavailable . + [place] [address] R Unavailable Unavailable Unavailable SERAFIN, BERT Unavailable [address] + [place] [address] SERAFIN, TROY Unavailable . + [place] [address] R Unavailable Unavailable Unavailable SERAFIN, BERT Unavailable [address] + [place] [address] SERAFIN, TROY Unavailable . + [place] [address] R Unavailable Unavailable Unavailable SERAFIN, BERT Unavailable [address] + [place] [address] SERAFIN, TROY Unavailable . + [place] [address] R Unavailable Unavailable Unavailable SERAFIN, BERT Unavailable [address] + [place] [address] SERAFIN, TROY Unavailable . + [place] [address] R Unavailable Unavailable Unavailable SERAFIN, BERT Unavailable [address] + [place] [address] SERAFIN, TROY Unavailable . + [place] [address] R Unavailable Unavailable Unavailable SERAFIN, BERT Unavailable [address] + [place] [address] SERAFIN, TROY Unavailable . + [place] [address] R Unavailable Unavailable Unavailable SERAFIN, BERT Unavailable [address] + [place] [address] SERAFIN, TROY Unavailable . + [place] [address] R Unavailable Unavailable Unavailable SERAFIN, BERT Unavailable [address] + [place] [address] SERAFIN, TROY Unavailable . + [place] [address] R Unavailable Unavailable Unavailable SERAFIN, BERT Unavailable [address] + [place] [address] SERAFIN, TROY Unavailable . + [place] [address] R Unavailable Unavailable Unavailable SERAFIN, BERT Unavailable [address] + [place] [address] SERAFIN, TROY Unavailable . + [place] [address] R Unavailable Unavailable Unavailable SERAFIN, BERT Unavailable [address] + [place] [address] SERAFIN, TROY Unavailable . + [place] [address] R Unavailable Unavailable Unavailable SERAFIN, BERT Unavailable [address] + [place] [address] SERAFIN, TROY Unavailable Unavailable + [place] [address] R Unavailable Unavailable Unavailable SERAFIN, BERT Unavailable [address] + [place] [address] SERAFIN, TROY Unavailable Unavailable + [place] [address] R Unavailable Unavailable Unavailable SERAFIN, BERT Unavailable [address] + [place] [address] SERAFIN, TROY Unavailable Unavailable + [place] [address] R Unavailable Unavailable Unavailable SERAFIN, BERT Unavailable [address] + [place] [address] SERAFIN, TROY Unavailable Unavailable + [place] [address] R Unavailable Unavailable Unavailable SERAFIN, BERT Unavailable [address] + [place] [address] SERAFIN, TROY Unavailable Unavailable + [place] [address] R Unavailable Unavailable Unavailable SERAFIN, BERT Unavailable [address] + [place] [address] SERAFIN, TROY Unavailable Unavailable + [place] [address] R Unavailable Unavailable Unavailable Care Team Providers Name Role Phone Lisa Winn Attending Unavailable Abdirahman Cole Primary Care Unavailable Rl PrajapatiC Consulting Unavailable Bethanie Malone PA-C Attending Unavailable Abdirahman Cole Referring Unavailable Rl Prajapati OPERATIONS STAFF SPECIALIST SECURITY-C Attending Unavailable Abdirahman Cole Primary Care Unavailable Rl PrajapatiC Attending Unavailable Abdirahman Cole Primary Care Unavailable Prajapati, Rl OPERATIONS STAFF SPECIALIST SECURITY-C Consulting Unavailable Cole, Abdirahman Primary Care Unavailable ELI ENGLAND Attending Unavailable Eduard Luo Attending Unavailable Eduard Luo Referring Unavailable Cole, Abdirahman Primary Care Unavailable Prajapati, Rl OPERATIONS STAFF SPECIALIST SECURITY-C Attending Unavailable Cole, Abdirahman Primary Care Unavailable Prajapati, Rl OPERATIONS STAFF SPECIALIST SECURITY-C Attending Unavailable Cole, Abdirahman Primary Care Unavailable Prajapati, Rl OPERATIONS STAFF SPECIALIST SECURITY-C Consulting Unavailable Cole, Abdirahman Primary Care Unavailable Darrel Marx Attending Unavailable Malone PA-C, Bethanie Attending Unavailable Prajapati, Rl OPERATIONS STAFF SPECIALIST SECURITY-C Attending Unavailable Cole, Abdirahman Primary Care Unavailable Prajapati, Rl OPERATIONS STAFF SPECIALIST SECURITY-C Consulting Unavailable Malone PA-C, Bethanie Attending Unavailable Prajapati, Rl OPERATIONS STAFF SPECIALIST SECURITY-C Attending Unavailable Cole, Abdirahman Primary Care Unavailable Prajapati, Rl OPERATIONS STAFF SPECIALIST SECURITY-C Consulting Unavailable Prajapati, Rl OPERATIONS STAFF SPECIALIST SECURITY-C Attending Unavailable Cole, Abdirahman Primary Care Unavailable Francois Patel Attending Unavailable Prajapati, Rl OPERATIONS STAFF SPECIALIST SECURITY-C Referring Unavailable Prajapati, Rl OPERATIONS STAFF SPECIALIST SECURITY-C Attending Unavailable Cole, Abdirahman Primary Care Unavailable Prajapati, Rl OPERATIONS STAFF SPECIALIST SECURITY-C Consulting Unavailable Nurse, Surgery Attending Unavailable Kelsey, Abdirahman Referring Unavailable Malone PA-C, Bethanie Attending Unavailable Abdirahman Cole Referring Unavailable Malone PA-C, Bethanie Attending Unavailable Prajapati, Rl OPERATIONS STAFF SPECIALIST SECURITY-C Attending Unavailable Cole, Abdirahman Primary Care Unavailable Prajapati, Rl OPERATIONS STAFF SPECIALIST SECURITY-C Consulting Unavailable Malone PA-C, Bethanie Attending Unavailable Abdirahman Cole Referring Unavailable Prajapati, Rl OPERATIONS STAFF SPECIALIST SECURITY-C Attending Unavailable Cole, Abdirahman Primary Care Unavailable Prajapati, Rl OPERATIONS STAFF SPECIALIST SECURITY-C Attending Unavailable Cole, Abdirahman Primary Care Unavailable Prajapati, Rl OPERATIONS STAFF SPECIALIST SECURITY-C Consulting Unavailable Malone PA-C, Bethanie Attending Unavailable KELSEY, EVELYN Referring Unavailable COLE, ABDIRAHMAN Sapp Referring Unavailable COLE, ABDIRAHMAN Sapp Referring Unavailable HUE URBAN Referring Unavailable COLE, ABDIRAHMAN Sapp Attending Unavailable KELSEY, ABDIRAHAMN Sapp Referring Unavailable COLE, ABDIRAHMAN Sapp Referring Unavailable COLE, ABDIRAHMAN Sapp Referring Unavailable COLE, ABDIRAHMAN Sapp Referring Unavailable COLE, ABDIRAHMAN Sapp Referring Unavailable COLE, ABDIRAHMAN Sapp Referring Unavailable COLE, ABDIRAHMAN Sapp Referring Unavailable WILMAR, HUE E Referring Unavailable WILMAR, HUE E Attending Unavailable WILMAR, HUE E Referring Unavailable WILMAR, HUE E Referring Unavailable COLE, EVELYN Referring Unavailable COLE, EVELYN Attending Unavailable COLE, EVELYN Referring Unavailable WILMAR, HUE E Referring Unavailable VIVIANE LUO () Attending Unavailable VIVIANE LUO) Referring Unavailable VIVIANE LUO () Referring Unavailable COLE, EVELYN Referring Unavailable COLE, EVELYN Referring Unavailable COLE, EVELYN Referring Unavailable COLE, EVELYN Referring Unavailable COLE, EVELYN Referring Unavailable COLE, EVELYN Referring Unavailable COLE, EVELYN Referring Unavailable COLE, EVELYN Referring Unavailable WILMAR, HUE E Attending Unavailable WILMAR, HUE E Referring Unavailable WILMAR, HUE Attending Unavailable WILMAR, HUE Referring Unavailable Abdirahman Cole MD Primary Care Unavailable HUE URBAN Attending Unavailable WILMAR HUE Referring Unavailable Abdirahman Cole MD Primary Care Unavailable PROBLEMS PROBLEMS DATE TYPE CONDITION / CODE ATTENDING STATUS SOURCE 12/10/2017 Unknown Z00.00 - Encounter Rl Prajapati Active [place] for general adult OPERATIONS STAFF SPECIALIST SECURITY-C [facility] examination Repository without abnormal findings / Z00.00(ICD-10) 11/16/2017 Active Other specified NA Active [facility] soft tissue [facility] Main disorders / [place] M79.89(ICD-10) Repository 11/16/2017 Active Contusion of left NA Active [place] lower leg, Clinic Main subsequent [place] encounter / Repository S80.12XD(ICD-10) 11/10/2017 Unknown S80.12XA - ELI ENGLAND Active [facility] Contusion of left [facility] lower leg, initial Hospital encounter / Repository S80.12XA(ICD-10) 10/23/2017 Active Persistent atrial NA Active [place] fibrillation / Clinic Main I48.1(ICD-10) [place] Repository 04/28/2017 Active Nonrheumatic NA Active [facility] aortic (valve) Clinic Main stenosis / [place] I35.0(ICD-10) Repository 04/21/2017 Active Essential NA Active [facility] (primary) Clinic Main hypertension / [place] I10(ICD-10) Repository 04/21/2017 Active Chronic diastolic NA Active [facility] (congestive) heart Clinic Main failure / [place] I50.32(ICD-10) Repository 04/21/2017 Admitting Unknown / HUE URBAN Active [facility] General diagnosis UNK(Unknown) [facility] Repository 10/19/2012 Active Unspecified atrial NA Active [facility] fibrillation / Clinic Main I48.91(ICD-10) [place] Repository PROCEDURES PROCEDURES No Procedure Records FoundRESULTS RESULTS SURGERY VISIT REPORT Observed: 03/02/2018 Status: F Source: [place] 1:50 PM [facility] REPOSITORY [facility] [address] [place] [address] OFFICE VISIT Date of Service: 03/02/18 MR#: [id number] Acct: [id number] Name: DANIELLA BETANCOURT Rep #: [id number] : 1935 Provider: Bethanie Malone PA-C Age/Sex: 82/F Location: [facility] Status: Signed Intake Intake Visit Reasons: 2 wk FU recheck wound Chief Complaint: wound check right lower leg Allergies amoxicillin Allergy (Verified 03/02/18 13:12) Unknown indomethacin [From Indocin] Allergy (Verified 03/02/18 13:12) Unknown Medications Aspirin [Aspirin, Baby] 81 mg PO DAILY@0800 11/23/17 [History Confirmed 01/26/18] Calcium Carb/Vitamin D [Os-Phi 500MG + D] 3 tab PO DAILY@0800 11/23/17 [History Confirmed 01/26/18] Cyanocobalamin [Vitamin B12] 500 mcg PO DAILY@0800 11/23/17 [History Confirmed 01/26/18] Felodipine [Plendil] 5 mg PO DAILY 11/23/17 [History Confirmed 01/26/18] Latanoprost 0.005% [Xalatan Opthalmic] 1 drp EACH EYE QHS 11/23/17 [History Confirmed 01/26/18] Losartan/Hydrochlorothiazide [Hyzaar 100-25 Tablet] 1 tab PO DAILY 11/23/17 [History Confirmed 01/26/18] Metoprolol Tartrate [Lopressor (Beta Fox)] 50 mg PO BREAKFAST 11/23/17 [History Confirmed 01/26/18] Multivit-Min/FA/Lycopen/Lutein [Senior Tabs] 1 ea PO DAILY 11/23/17 [History Confirmed 01/26/18] Warfarin [Coumadin (PBKC)] 2.5 mg PO SUTUTHFRSA 12/03/17 [History Confirmed 01/26/18] Warfarin [Coumadin (PBKC)] 5 mg PO MOWE 12/03/17 [History Confirmed 01/26/18] ABD pad #1 pkg 12/23/17 [Rx Confirmed 01/26/18] Subjective Details: DANIELLA BETANCOURT, is a 82 F who presents to the office for follow- up of a traumatic hematoma. Patient was being seen at the wound center. It was recommended the patient be evaluated in the office by Dr. Patel for further debridement. Patient was evaluated on 12/[address] Patel who performed further debridement in the office. Over the weekend the patient removed the packing and placed dry gauze over top of the open wound. Patient returned for a follow-up today. She denies pain at the open wounds. She did have some drainage. She notes she has the Flagyl remaining and has completed the other antibiotic. Patient returns for a follow-up visit. She denies concerns or complaints. She notes the swelling is improving. She has been elevating her leg when sitting. She notes changing the dressing daily. She has been following up with the wound center and will continue to do so. Objective Details: Left lower extremity- lateral tunnel approximately 1.5 cm. Wound was packed with silver packing Medial open wound- Tunnel approximately 2.0 cm. Minimal amount of bleeding. This open wound was not packed. One ABD pads was applied. QUIQUE wrap was wrapped up to the knee. Minimal amount of soft tissue swelling; improving Assessment AND Plan Problems 1. Traumatic hematoma of left lower leg, initial encounter S80.12XA Plan - Continue to pack the lateral open wound. Leave medial wound to spontaneously heal. - Follow-up in 2 weeks Coding Level of Care Code Off vis,est,level 3 Diagnoses Traumatic hematoma of left lower leg, initial encounter S80.12XA 03/02/18 1350 <Electronically signed by Bethanie Malone PA-C> Date Bethanie Bojorquez Signature: Date (if applicable) CC: Rl ChamorroBarboza OBSOLETE Observed: 02/26/2018 Status: COMPLETED Source: [place] 12:00 AM [facility] REPOSITORY Refill (INTMWS) DANIELLA BETANCOURT ([id number]) 1935 F Date Time Provider Department 02/26/18 ABDIRAHMAN COLE INTMWS During your visit today, we recorded the following information about you: Jazmine Wright RN 02/26/2018 9:56 AM Signed Patient has been identified by name and date of : Yes Patient phones for refill(s): Pending Prescriptions Disp Refills FELODIPINE ER 5 MG TABLET,EXTENDED RELEASE 24 HR 90 tablet 3 Sig: Take 1 tablet by mouth once daily. REJI: No LOSARTAN 100 MG-HYDROCHLOROTHIAZIDE 25 MG TABLET 90 tablet 3 Sig: Take 1 tablet by mouth once daily. REJI: No Date of last office visit with pcp: 10-29-17. Next appt: 05-05-18 Last 2 Encounter Wt Readings: Date: Wt: 11/16/2017 77.1 kg (170 lb 0.6 oz) 10/29/2017 78 kg (172 lb) Previous labs/tests for medication: Blood Pressure: BUN (mg/dL) Date Value 10/29/2017 14 Sodium (mmol/L) Date Value 10/29/2017 138 Last 1 Encounter BP Readings: Date: BP: 11/16/2017 102/70 Blood Counts: WBC (k/uL) Date Value 11/16/2017 6.57 RBC (m/uL) Date Value 11/16/2017 2.93 Hematocrit (%) Date Value 11/16/2017 30.4 Hemoglobin (g/dL) Date Value 11/16/2017 10.0 Platelet Count (k/uL) Date Value 11/16/2017 349 Liver Function: ALT (U/L) Date Value 10/23/2016 16 AST (U/L) Date Value 10/23/2016 23 Please advise. Thank you. Jazmine Wright RN Allergies As of Date: 02/26/2018 Noted Allergy Reaction AMOXICILLIN 12/02/2004 2 - Rash CATS 01/06/2006 5 - Intolerance Comments: low grade tempeture, fatigue INDOCIN (INDOMETHACIN) 12/02/2004 2 - Rash Date Reviewed: 11/16/2017 Reviewed by: Amy Mcclure Ma - Fully Assessed Reason for Visit: Refill Request [94] Order(s):felodipine ER (PLENDIL) 5 mg 24 hr tabletTake 1 tablet by mouth once daily.Disp: 90 tabletRfl: 3 losartan-hydrochlorothiazide (HYZAAR) 100-25 mg per tabletTake 1 tablet by mouth once daily.Disp: 90 tabletRfl: 3 Prescriptions as of 02/26/2018 Sig: FELODIPINE ER 5 MG TABLET,EXT* Take 1 tablet by mouth once d* LOSARTAN 100 MG-HYDROCHLOROTH* Take 1 tablet by mouth once d* METOPROLOL TARTRATE 25 MG TAB* TAKE TWO TABLETS BY MOUTH IN * WARFARIN 5 MG TABLET Take 1 tablet by mouth daily * LATANOPROST 0.005 % EYE DROPS 1 Drop daily at bedtime. CYANOCOBALAMIN (VIT B-12) 500* Take 1 tablet by mouth once d* ASPIRIN 81 MG TABLET once daily. CALCIUM CARB-ERGOCALCIFEROL (* three tablets daily SPECTRAVITE SENIOR TABLET Take one(1) tablet daily. Problem List As Of Date 02/26/2018 Noted Resolved Osteopenia [M85.80] More... Allergy, unspecified not elsewhere classified [* 10/25/2014 Essential hypertension [I10] More... 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 Other and unspecified hyperlipidemia [E78.5] INVALID FOR*06/20/2010 More... Lipoma of unspecified site [D17.9] INVALID FOR*10/25/2014 Atrial fibrillation [I48.91] INVALID FOR* Tinnitus [H93.19] INVALID FOR* Nonrheumatic aortic valve stenosis [I35.0] INVALID FOR* Prescriptions ordered this encounter Disp Refills Start End FELODIPINE ER 5 MG TABLET,EXTENDED R* 90 t* 3 02/26/2018 Route: ORAL Sig: Take 1 tablet by mouth once daily. LOSARTAN 100 MG-HYDROCHLOROTHIAZIDE * 90 t* 3 02/26/2018 Route: ORAL Sig: Take 1 tablet by mouth once daily. Medications Discontinued During This Encounter felodipine ER (PLENDIL) 5 mg 24 hr t* 90 t* 3 03/18/2017 02/26/2018 Route: ORAL Sig: Take 1 tablet by mouth once daily. Disc: Reason for discontinue is not on file. losartan-hydrochlorothiazide (HYZAAR* 90 t* 3 02/11/2017 02/26/2018 Route: ORAL Sig: Take 1 tablet by mouth once daily. Disc: Reason for discontinue is not on file. Encounter Status:Closed by SWETA NGUYEN CNP on 02/26/18 SURGERY VISIT REPORT Observed: 02/17/2018 Status: F Source: [place] 1:46 PM [facility] REPOSITORY [facility] [address] [place] [address] [address] [place] [address] OFFICE VISIT Date of Service: 02/16/18 MR#: [id number] Acct: [id number] Name: DANIELLA BETANCOURT Rep #: [id number] : 1935 Provider: Bethanie Malone PA-C Age/Sex: 82/F Location: [facility] Status: Signed Intake Intake Visit Reasons: 2 wk FU recheck wound Chief Complaint: wound check right lower leg Allergies amoxicillin Allergy (Verified 01/26/18 13:07) Unknown indomethacin [From Indocin] Allergy (Verified 01/26/18 13:07) Unknown Medications Aspirin [Aspirin, Baby] 81 mg PO DAILY@0800 11/23/17 [History Confirmed 01/26/18] Calcium Carb/Vitamin D [Os-Phi 500MG + D] 3 tab PO DAILY@0800 11/23/17 [History Confirmed 01/26/18] Cyanocobalamin [Vitamin B12] 500 mcg PO DAILY@0800 11/23/17 [History Confirmed 01/26/18] Felodipine [Plendil] 5 mg PO DAILY 11/23/17 [History Confirmed 01/26/18] Latanoprost 0.005% [Xalatan Opthalmic] 1 drp EACH EYE QHS 11/23/17 [History Confirmed 01/26/18] Losartan/Hydrochlorothiazide [Hyzaar 100-25 Tablet] 1 tab PO DAILY 11/23/17 [History Confirmed 01/26/18] Metoprolol Tartrate [Lopressor (Beta Fox)] 50 mg PO BREAKFAST 11/23/17 [History Confirmed 01/26/18] Multivit-Min/FA/Lycopen/Lutein [Senior Tabs] 1 ea PO DAILY 11/23/17 [History Confirmed 01/26/18] Warfarin [Coumadin (PBKC)] 2.5 mg PO SUTUTHFRSA 12/03/17 [History Confirmed 01/26/18] Warfarin [Coumadin (PBKC)] 5 mg PO MOWE 12/03/17 [History Confirmed 01/26/18] ABD pad #1 pkg 12/23/17 [Rx Confirmed 01/26/18] Subjective Details: DANIELLA BETANCOURT, is a 82 F who presents to the office for follow- up of a traumatic hematoma. Patient was being seen at the wound center. It was recommended the patient be evaluated in the office by Dr. Patel for further debridement. Patient was evaluated on 12/[address] Patel who performed further debridement in the office. Over the weekend the patient removed the packing and placed dry gauze over top of the open wound. Patient returned for a follow-up today. She denies pain at the open wounds. She did have some drainage. She notes she has the Flagyl remaining and has completed the other antibiotic. Patient returns for a follow-up visit. She denies concerns or complaints. She notes the swelling is improving. She has been elevating her leg when sitting. She notes changing the dressing daily. She has been following up with the wound center and will continue to do so. Objective Details: Left lower extremity- lateral open wound 1.5 cm length x 1.0 cm width. lateral tunnel approximately 2.2 cm. Depth is shallow Medial open wound 0.5 cm length x 0.4 cm width. Tunnel approximately 1.8 cm. Minimal amount of bleeding. Wounds were packed with iodoform packing. One ABD pads was applied. QUIQUE wrap was wrapped up to the knee. Minimal amount of soft tissue swelling; improving Assessment AND Plan Problems 1. Traumatic hematoma of left lower leg, initial encounter S80.12XA Plan - Follow-up in 2 weeks - Continue dressing changes Coding Level of Care Code Off vis,est,level 3 Diagnoses Traumatic hematoma of left lower leg, initial encounter S80.12XA 02/17/18 1346 <Electronically signed by Bethanie Malone PA-C> Date Bethanie Malone PA-C Cosigner Signature: Date (if applicable) CC: PROGRESS Observed: 02/16/2018 Status: COMPLETED Source: [place] 10:41 AM [facility] REPOSITORY HNO ID: [id number] Author: Sweta Nguyen Service: (none) Author Type: Nurse Practitioner Type: Progress Notes Filed: 02/16/2018 10:41 AM Note Text: Tamara Nguyen, [employer] LEADERCELSA PROGRESS Observed: 02/16/2018 Status: COMPLETED Source: [place] 10:21 AM [facility] REPOSITORY HNO ID: [id number] Author: Olive Everett RN Service: (none) Author Type: (none) Type: Progress Notes Filed: 02/16/2018 10:22 AM Note Text: patient had inr completed at [facility] patients inr is 2.4 (patients inr range is 2.0-3.0) patient is currently taking 5mg Tues,Thurs,sat and 2.5mg all other days patients last dose change was on 01/12/18 due to a low level of 1.7 (dose at that time was 5mg Tues,Fri and 2.5mg all other days) patient has had no changes in medication and no missed doses and no change in diet Advised patient to continue on the same dose(s) and that they would only be contacted regarding dosage and follow up instructions after review with provider, if a change is needed. Written instructions given and patient verbalized understanding. Presently scheduled in 4 weeks (03/16/18) for follow up INR. SURGERY VISIT REPORT Observed: 01/26/2018 Status: F Source: [place] [place] 2:45 PM [facility] REPOSITORY [facility] [address] [place] [address]. [address] [place] [address] OFFICE VISIT Date of Service: 01/26/18 MR#: [id number] Acct: [id number] Name: DANIELLA BETANCOURT Rep #: [id number] : 1935 Provider: Bethanie Malone PA-C Age/Sex: 82/F Location: [facility] Status: Signed Intake Intake Visit Reasons: 2 wk FU recheck wound Chief Complaint: wound check right lower leg Allergies amoxicillin Allergy (Verified 01/26/18 13:07) Unknown indomethacin [From Indocin] Allergy (Verified 01/26/18 13:07) Unknown Medications Aspirin [Aspirin, Baby] 81 mg PO DAILY@0800 11/23/17 [History Confirmed 01/26/18] Calcium Carb/Vitamin D [Os-Phi 500MG + D] 3 tab PO DAILY@0800 11/23/17 [History Confirmed 01/26/18] Cyanocobalamin [Vitamin B12] 500 mcg PO DAILY@0800 11/23/17 [History Confirmed 01/26/18] Felodipine [Plendil] 5 mg PO DAILY 11/23/17 [History Confirmed 01/26/18] Latanoprost 0.005% [Xalatan Opthalmic] 1 drp EACH EYE QHS 11/23/17 [History Confirmed 01/26/18] Losartan/Hydrochlorothiazide [Hyzaar 100-25 Tablet] 1 tab PO DAILY 11/23/17 [History Confirmed 01/26/18] Metoprolol Tartrate [Lopressor (Beta Fox)] 50 mg PO BREAKFAST 11/23/17 [History Confirmed 01/26/18] Multivit-Min/FA/Lycopen/Lutein [Senior Tabs] 1 ea PO DAILY 11/23/17 [History Confirmed 01/26/18] Warfarin [Coumadin (PBKC)] 2.5 mg PO SUTUTHFRSA 12/03/17 [History Confirmed 01/26/18] Warfarin [Coumadin (PBKC)] 5 mg PO MOWE 12/03/17 [History Confirmed 01/26/18] ABD pad #1 pkg 12/23/17 [Rx Confirmed 01/26/18] Subjective Details: DANIELLA BETANCOURT, is a 82 F who presents to the office for follow- up of a traumatic hematoma. Patient was being seen at the wound center. It was recommended the patient be evaluated in the office by Dr. Patel for further debridement. Patient was evaluated on 12/[address] Patel who performed further debridement in the office. Over the weekend the patient removed the packing and placed dry gauze over top of the open wound. Patient returned for a follow-up today. She denies pain at the open wounds. She did have some drainage. She notes she has the Flagyl remaining and has completed the other antibiotic. Patient returns for a follow-up visit. She denies concerns or complaints. She notes the swelling is improving. She has been elevating her leg when sitting. She notes changing the dressing daily. She has been following up with the wound center and will continue to do so. Objective Details: Left lower extremity- lateral open wound 1.5 cm length x 2.2 cm width. lateral tunnel approximately 2.2 cm and medial tunnel is completely closed. Depth 1.1 cm. Healthy granulation tissue noted. Minimal amount of bleeding. Medial open wound 0.9 cm length x 0.6 cm width. Tunnel approximately 2.5 cm. Depth 0.7 cm. Healthy granulation tissue. Minimal amount of bleeding. Wounds were packed with silver packing. One ABD pads was applied. QUIQUE wrap was wrapped up to the knee. Minimal amount of soft tissue swelling; improving Assessment AND Plan Problems 1. Traumatic hematoma of left lower leg, initial encounter S80.12XA Plan - Follow-up in 3 weeks Coding Level of Care Code Off vis,est,level 3 Diagnoses Traumatic hematoma of left lower leg, initial encounter S80.12XA 01/26/18 1445 <Electronically signed by Bethanie Malone PA-C> Date Bethanie Malone PA-C Cosigner Signature: Date (if applicable) CC: PROGRESS Observed: 01/26/2018 Status: COMPLETED Source: [place] 1:06 PM [facility] REPOSITORY HNO ID: [id number] Author: Abdirahman Cole Service: (none) Author Type: Physician Type: Progress Notes Filed: 01/26/2018 1:06 PM Note Text: Okay. PROGRESS Observed: 01/26/2018 Status: COMPLETED Source: [place] 12:53 PM [facility] REPOSITORY HNO ID: [id number] Author: Olive Everett RN Service: (none) Author Type: (none) Type: Progress Notes Filed: 01/26/2018 12:54 PM Note Text: patient had inr completed at [facility] patients inr is 2.3 (patients inr range is 2.0-3.0) patient is currently taking 5mg Tues,Thurs,Sat and 2.5mg all other days patients last dose change was on 01/12/18 due to a low level of 1.7 (dose at that time was 5mg Tues,Fri and 2.5mg all other days) patient has had no changes in medication and no missed doses and no change in diet Advised patient to continue on the same dose(s) and that they would only be contacted regarding dosage and follow up instructions after review with provider, if a change is needed. Written instructions given and patient verbalized understanding. Presently scheduled in 3 weeks (02/16/18) for follow up INR. SURGERY VISIT REPORT Observed: 01/12/2018 Status: F Source: [place] 3:15 PM [facility] REPOSITORY [facility] [address] [place] [address] OFFICE VISIT Date of Service: 01/12/18 MR#: [id number] Acct: [id number] Name: DANIELLA BETANCOURT Rep #: [id number] : 1935 Provider: Btehanie Malone PA-C Age/Sex: 82/F Location: [facility] Status: Signed Intake Intake Visit Reasons: 1 wk FU recheck wound Chief Complaint: wound check right lower leg Chairman President And Chief Executive Officer Required: No Is patient in pain?: No Allergies amoxicillin Allergy (Verified 01/12/18 12:28) Unknown indomethacin [From Indocin] Allergy (Verified 01/12/18 12:28) Unknown Medications Aspirin [Aspirin, Baby] 81 mg PO DAILY@0800 11/23/17 [History Confirmed 12/28/17] Calcium Carb/Vitamin D [Os-Phi 500MG + D] 3 tab PO DAILY@0800 11/23/17 [History Confirmed 12/28/17] Cyanocobalamin [Vitamin B12] 500 mcg PO DAILY@0800 11/23/17 [History Confirmed 12/28/17] Felodipine [Plendil] 5 mg PO DAILY 11/23/17 [History Confirmed 12/28/17] Latanoprost 0.005% [Xalatan Opthalmic] 1 drp EACH EYE QHS 11/23/17 [History Confirmed 12/28/17] Losartan/Hydrochlorothiazide [Hyzaar 100-25 Tablet] 1 tab PO DAILY 11/23/17 [History Confirmed 12/28/17] Metoprolol Tartrate [Lopressor (Beta Fox)] 50 mg PO BREAKFAST 11/23/17 [History Confirmed 12/28/17] Multivit-Min/FA/Lycopen/Lutein [Senior Tabs] 1 ea PO DAILY 11/23/17 [History Confirmed 12/28/17] Warfarin [Coumadin (PBKC)] 2.5 mg PO SUTUTHFRSA 12/03/17 [History Confirmed 12/28/17] Warfarin [Coumadin (PBKC)] 5 mg PO MOWE 12/03/17 [History Confirmed 12/28/17] ABD pad #1 pkg 12/23/17 [Rx Confirmed 12/28/17] Is last menstrual period known: No Post menopausal: Yes Patient : No PFSH Medical History Afib (Chronic) Traumatic hematoma of left lower leg (Acute) Hypertension (Chronic) Glaucoma (Acute) Osteoarthritis (Acute) Bilateral lower extremity edema (Acute) Decreased dorsalis pedis pulse (Acute) Abnormal ankle brachial index (SAHIL) (Acute) Wound of left lower extremity (Acute) Surgical History History of appendectomy (Acute) History of left inguinal hernia repair (Acute) History of tubal ligation (Acute) history ORIF bilateral ankles (Acute) Family History Sister Breast cancer Father Cancer multiple myeloma Mother Cancer endometrial cancer Social History Smoking Status: Never smoker alcohol intake: never substance use type: does not use HPI HPI HPI: DANIELLA BETANCOURT, is a 82 F who presents to the office for follow-up of a traumatic hematoma. Patient was being seen at the wound center. It was recommended the patient be evaluated in the office by Dr. Patel for further debridement. Patient was evaluated on 12/[address] Patel who performed further debridement in the office. Over the weekend the patient removed the packing and placed dry gauze over top of the open wound. Patient returned for a follow-up today. She denies pain at the open wounds. She did have some drainage. She notes she has the Flagyl remaining and has completed the other antibiotic. Patient returns for a follow-up visit. She denies concerns or complaints. She notes the swelling is improving. She has been elevating her leg when sitting. She notes changing the dressing daily. She has been following up with the wound center and will continue to do so. Exam Extrem Other: Left lower extremity- lateral open wound 3.6 cm length x 2.7 cm width. lateral tunnel approximately 3.0 cm and medial tunnel is completely closed. Depth 1.2 cm. Healthy granulation tissue noted. Minimal amount of bleeding. Medial open wound 1.2 cm length x .09 cm width. Tunnel approximately 3.0 cm. Depth 1.0 cm. Healthy granulation tissue. Minimal amount of bleeding. Wounds were packed with saline damped kerlix. Two ABD pads were applied. QUIQUE wrap was wrapped up to the knee. Minimal amount of soft tissue swelling; improving Assessment AND Plan Problems 1. Traumatic hematoma of left lower leg, initial encounter S80.12XA Plan - Follow-up in 2 weeks Coding Level of Care Code Off vis,est,level 3 Diagnoses Traumatic hematoma of left lower leg, initial encounter S80.12XA Encounter type: initial encounter 01/12/18 1515 <Electronically signed by Bethanie Malone PA-C> Date Bethanie Malone PA-C Cosigner Signature: Date (if applicable) CC: PROGRESS Observed: 01/12/2018 Status: COMPLETED Source: [place] 2:59 PM [facility] REPOSITORY HNO ID: [id number] Author: Rose Mary Ballard LPN Service: (none) Author Type: (none) Type: Progress Notes Filed: 01/12/2018 2:59 PM Note Text: Patient notified of results and provider's instructions. Patient verbalizes understanding. Rose Mary Ballard LPN PROGRESS Observed: 01/12/2018 Status: COMPLETED Source: [place] 12:50 PM [facility] REPOSITORY HNO ID: [id number] Author: Abdirahman Cole Service: (none) Author Type: Physician Type: Progress Notes Filed: 01/12/2018 2:59 PM Note Text: Increase Coumadin dose. 5 mg Tue, Th, and Sat and 2.5 mg on all other 4 days of the week. INR in 2 weeks. PROGRESS Observed: 01/12/2018 Status: COMPLETED Source: [place] 11:19 AM [facility] REPOSITORY HNO ID: [id number] Author: Olive Everett RN Service: (none) Author Type: (none) Type: Progress Notes Filed: 01/12/2018 11:21 AM Note Text: patient had inr completed at [facility] patients inr is 1.7 (patients inr range is 2.0-3.0) patient is currently taking 5mg Tues,Fri and 2.5mg all other days patients last dose change was on 12/28/17 due to a low level of 1.4 (dose at that time was 2.5mg daily) patient has had no changes in medication except for coumadin and no missed doses and no change in diet Advised patient that they would be contacted regarding medication dose and when to follow up after information is reviewed by provider. After provider review please contact the patient with information and schedule follow up appointment with coumadin clinic. ok to leave a detailed message if no answer FYI - patient has been scheduled for a 2 week follow up inr on 01/26/18 PROGRESS Observed: 12/28/2017 Status: COMPLETED Source: [place] 5:18 PM [facility] REPOSITORY HNO ID: [id number] Author: Olive Everett RN Service: (none) Author Type: (none) Type: Progress Notes Filed: 12/28/2017 5:18 PM Note Text: PATIENT NOTIFIED OF INFORMATION PROGRESS Observed: 12/28/2017 Status: COMPLETED Source: [place] 5:15 PM [facility] REPOSITORY HNO ID: [id number] Author: Yana Booker Cma Service: (none) Author Type: (none) Type: Progress Notes Filed: 12/28/2017 5:21 PM Note Text: TC to patient. No answer. LM on for return call back to a triage nurse regarding INR results. Please try to contact again later. Yana Booker Cma PROGRESS Observed: 12/28/2017 Status: COMPLETED Source: [place] 5:05 PM [facility] REPOSITORY HNO ID: [id number] Author: Abdirahman Cole Service: (none) Author Type: Physician Type: Progress Notes Filed: 12/28/2017 5:21 PM Note Text: Increase Coumadin dose. 5 mg Thu and Thursday. 2.5 mg on all other 5 days of the week. INR in 2 weeks. SURGERY VISIT REPORT Observed: 12/28/2017 Status: F Source: [place] 3:24 PM [facility] REPOSITORY [facility] [address] [place] [address]. [address] [place] [address] OFFICE VISIT Date of Service: 12/28/17 MR#: [id number] Acct: [id number] Name: DANIELLA BETANCOURT Rep #: [id number] : 1935 Provider: Bethanie Malone PA-C Age/Sex: 82/F Location: [facility] Status: Signed Intake Intake Visit Reasons: 1 wk FU recheck wound Chief Complaint: dressing change/ family teaching Chairman President And Chief Executive Officer Required: No Is patient in pain?: No Allergies amoxicillin Allergy (Verified 12/28/17 10:23) Unknown indomethacin [From Indocin] Allergy (Verified 12/28/17 10:23) Unknown Medications Aspirin [Aspirin, Baby] 81 mg PO DAILY@0800 11/23/17 [History Confirmed 12/28/17] Calcium Carb/Vitamin D [Os-Phi 500MG + D] 3 tab PO DAILY@0800 11/23/17 [History Confirmed 12/28/17] Cyanocobalamin [Vitamin B12] 500 mcg PO DAILY@0800 11/23/17 [History Confirmed 12/28/17] Felodipine [Plendil] 5 mg PO DAILY 11/23/17 [History Confirmed 12/28/17] Latanoprost 0.005% [Xalatan Opthalmic] 1 drp EACH EYE QHS 11/23/17 [History Confirmed 12/28/17] Losartan/Hydrochlorothiazide [Hyzaar 100-25 Tablet] 1 tab PO DAILY 11/23/17 [History Confirmed 12/28/17] Metoprolol Tartrate [Lopressor (Beta Fox)] 50 mg PO BREAKFAST 11/23/17 [History Confirmed 12/28/17] Multivit-Min/FA/Lycopen/Lutein [Senior Tabs] 1 ea PO DAILY 11/23/17 [History Confirmed 12/28/17] Warfarin [Coumadin (PBKC)] 2.5 mg PO SUTUTHFRSA 12/03/17 [History Confirmed 12/28/17] Warfarin [Coumadin (PBKC)] 5 mg PO MOWE 12/03/17 [History Confirmed 12/28/17] ABD pad #1 pkg 12/23/17 [Rx Confirmed 12/28/17] PFSH Medical History Afib (Chronic) Traumatic hematoma of left lower leg (Acute) Hypertension (Chronic) Glaucoma (Acute) Osteoarthritis (Acute) Bilateral lower extremity edema (Acute) Decreased dorsalis pedis pulse (Acute) Abnormal ankle brachial index (SAHIL) (Acute) Wound of left lower extremity (Acute) Surgical History History of appendectomy (Acute) History of left inguinal hernia repair (Acute) History of tubal ligation (Acute) history ORIF bilateral ankles (Acute) Family History Sister Breast cancer Father Cancer multiple myeloma Mother Cancer endometrial cancer Social History Smoking Status: Never smoker alcohol intake: never substance use type: does not use HPI HPI HPI: DANIELLA BETANCOURT, is a 82 F who presents to the office for follow-up of a traumatic hematoma. Patient was being seen at the wound center. It was recommended the patient be evaluated in the office by Dr. Patel for further debridement. Patient was evaluated on 12/[address] Patel who performed further debridement in the office. Over the weekend the patient removed the packing and placed dry gauze over top of the open wound. Patient returned for a follow-up today. She denies pain at the open wounds. She did have some drainage. She notes she has the Flagyl remaining and has completed the other antibiotic. Patient returns for a follow-up visit. She denies concerns or complaints. She notes the swelling is improving. She has been elevating her leg when sitting. She notes changing the dressing daily. She has been following up with the wound center and will continue to do so. Exam Extrem Other: Left lower extremity- lateral open wound 4.5 cm length x 2.7 cm width. lateral tunnel approximately 5.5 cm and medial tunnel 1.5 cm. Depth 1.6 cm. Healthy granulation tissue noted. Minimal amount of bleeding. Medial open wound 1.5 cm length x 1.2 cm width. Tunnel approximately 3.2 cm. Depth 1.0 cm. Healthy granulation tissue. Minimal amount of bleeding. Wounds were packed with saline damped kerlix. Two ABD pads were applied. QUIQUE wrap was wrapped up to the knee. Minimal amount of soft tissue swelling; improving Assessment AND Plan Problems 1. Traumatic hematoma of left lower leg, initial encounter S80.12XA Plan - Continue daily dressing changes - Follow-up with wound center next week - Follow-up in 2 weeks - Wound is greatly improving and is making excellent progress very quickly - Agree with using the aquacel silver dressing. This seems to be working - Patient is doing an excellent job of elevating her leg to allow for the swelling to decrease Coding Level of Care Code Off vis,est,level 3 Diagnoses Traumatic hematoma of left lower leg, initial encounter S80.12XA Encounter type: initial encounter 12/28/17 1524 <Electronically signed by Bethanie Malone PA-C> Date Bethanie Malone PA-C Cosigner Signature: Date (if applicable) CC: Rl Prajapati NP PROGRESS Observed: 12/28/2017 Status: COMPLETED Source: [place] 12:08 PM [facility] REPOSITORY HNO ID: [id number] Author: Olive Everett RN Service: (none) Author Type: (none) Type: Progress Notes Filed: 12/28/2017 12:10 PM Note Text: patient had inr completed at [facility] patients inr is 1.4 (patients inr range is 2.0-3.0) patient is currently taking 2.5mg daily patients last dose change was on 12/17/17 due to a high level of 5.1 (dose at that time was 5mg Mon,Fri and 2.5mg all other days) patient has had a change in medication as patient completed antibiotics on Thursday, and no missed doses and no change in diet Advised patient that they would be contacted regarding medication dose and when to follow up after information is reviewed by provider. After provider review please contact the patient with information and schedule follow up appointment with coumadin clinic. Please leave a detailed message if no answer FYI - patient has been scheduled for a 2 week follow up inr on 01/12/18 - appt with specialty also this day SURGERY VISIT REPORT Observed: 12/23/2017 Status: F Source: [place] 12:41 PM [facility] REPOSITORY [facility] [address] [place], [place] [address]all [facility]. [address] [place] [address] OFFICE VISIT Date of Service: 12/22/17 MR#: [id number] Acct: [id number] Name: DANIELLA BETANCOURT Rep #: [id number] : 1935 Provider: Bethanie Malone PA-C Age/Sex: 82/F Location: [facility] Status: Signed Intake Intake Visit Reasons: recheck wound, surgery plan Chief Complaint: dressing change/ family teaching Chairman President And Chief Executive Officer Required: No Is patient in pain?: No Allergies amoxicillin Allergy (Verified 12/22/17 14:21) Unknown indomethacin [From Indocin] Allergy (Verified 12/22/17 14:21) Unknown Medications Aspirin [Aspirin, Baby] 81 mg PO DAILY@0800 11/23/17 [History Confirmed 12/22/17] Calcium Carb/Vitamin D [Os-Phi 500MG + D] 3 tab PO DAILY@0800 11/23/17 [History Confirmed 12/22/17] Cyanocobalamin [Vitamin B12] 500 mcg PO DAILY@0800 11/23/17 [History Confirmed 12/22/17] Felodipine [Plendil] 5 mg PO DAILY 11/23/17 [History Confirmed 12/22/17] Latanoprost 0.005% [Xalatan Opthalmic] 1 drp EACH EYE QHS 11/23/17 [History Confirmed 12/22/17] Losartan/Hydrochlorothiazide [Hyzaar 100-25 Tablet] 1 tab PO DAILY 11/23/17 [History Confirmed 12/22/17] Metoprolol Tartrate [Lopressor (Beta Fox)] 50 mg PO BREAKFAST 11/23/17 [History Confirmed 12/22/17] Multivit-Min/FA/Lycopen/Lutein [Senior Tabs] 1 ea PO DAILY 11/23/17 [History Confirmed 12/22/17] Warfarin [Coumadin (PBKC)] 2.5 mg PO SUTUTHFRSA 12/03/17 [History Confirmed 12/22/17] Warfarin [Coumadin (PBKC)] 5 mg PO MOWE 12/03/17 [History Confirmed 12/22/17] ABD pad #1 pkg 12/23/17 [Rx Confirmed 12/23/17] Subjective Details: DANIELLA BETANCOURT, is a 82 F who presents to the office for follow- up of a traumatic hematoma. Patient was being seen at the wound center. It was recommended the patient be evaluated in the office by Dr. Patel for further debridement. Patient was evaluated on 12/[address] Patel who performed further debridement in the office. Over the weekend the patient removed the packing and placed dry gauze over top of the open wound. Patient returned for a follow-up today. She denies pain at the open wounds. She did have some drainage. She notes she has the Flagyl remaining and has completed the other antibiotic. Patient returns for a follow-up visit. She denies concerns or complaints. She notes the swelling maybe improving. She has been elevating her leg when sitting. She notes changing the dressing daily. Objective Details: Other: Left lower extremity- lateral open wound 5.5 cm length x 3.6 cm width. lateral tunnel approximately 5.5 cm and medial tunnel 3.4 cm. Healthy granulation tissue noted. Minimal amount of bleeding. Medial open wound 1.8 cm length x 1.4 cm width. Tunnel approximately 2.5 cm. Healthy granulation tissue. Minimal amount of bleeding. Wounds were packed with saline damped kerlix. Two ABD pads were applied. QUIQUE wrap was wrapped up to the knee. Moderate amount of soft tissue swelling; improving Assessment AND Plan Problems 1. Traumatic hematoma of left lower leg, initial encounter S80.12XA Plan - Continue dressing changes daily - Follow-up with the wound center on - Follow-up as needed Medications New: [ABD pad] anterior lower leg 5.5 cm x 3.6 cm. Tunnel 5.5 cm and 3.4 cm. Medial wound 1.8 c m x 1.4 cm. Tunnel 2.5 cm 1 pkg 2RF Coding Level of Care Code Off vis,est,level 3 Diagnoses Traumatic hematoma of left lower leg, initial encounter S80.12XA Encounter type: initial encounter 12/23/17 1241 <Electronically signed by Bethanie Malone PA-C> Date Bethanie Malone PA-C Cosigner Signature: Date (if applicable) CC: PROGRESS Observed: 12/21/2017 Status: COMPLETED Source: [place] 1:14 PM [facility] REPOSITORY HNO ID: [id number] Author: Sweta Nguyen Service: (none) Author Type: Nurse Practitioner Type: Progress Notes Filed: 12/21/2017 1:15 PM Note Text: TAMARA Nguyen, [employer] SAL[employer]AD[employer]SA PROGRESS Observed: 12/21/2017 Status: COMPLETED Source: [place] 12:46 PM [facility] REPOSITORY HNO ID: [id number] Author: Olive Everett RN Service: (none) Author Type: (none) Type: Progress Notes Filed: 12/21/2017 12:47 PM Note Text: patient had inr completed at [facility] patients inr is 2.5 (patients inr range is 2.0-3.0) patient is currently taking 2.5mg daily patients last dose change was on 12/17/17 due to a high level of 5.1 (dose at that time was 5mg Mon,Fri and 2.5mg all other days) patient has had no change in medication except for coumadin and no missed doses and no change in diet Advised patient to continue on the same dose(s) and that they would only be contacted regarding dosage and follow up instructions after review with provider, if a change is needed. Written instructions given and patient verbalized understanding. Presently scheduled in 1 week (12/28/17) for follow up INR since this is the first normal reading since dose change. PROGRESS Observed: 12/17/2017 Status: COMPLETED Source: [place] 4:25 PM [facility] REPOSITORY HNO ID: [id number] Author: Olive Everett RN Service: (none) Author Type: (none) Type: Progress Notes Filed: 12/17/2017 4:26 PM Note Text: per written order by dr calderon pt is to hold next 2 doses and then restart on 2.5mg daily until recheck. PATIENT NOTIFIED OF INFORMATION PROGRESS Observed: 12/17/2017 Status: COMPLETED Source: [place] 12:28 PM [facility] REPOSITORY HNO ID: [id number] Author: Olive Everett RN Service: (none) Author Type: (none) Type: Progress Notes Filed: 12/17/2017 12:30 PM Note Text: patient had inr completed at [facility] patients inr is 5.1 (patients inr range is 2.0-3.0) patient is currently taking 5mg Mon,Fri and 2.5mg all other days patients last dose change was 09/26/14?due to a low normal level of 2.0 (dose at that time was 5mg Mon and 2.5mg all other days) patient has had no changes in medication (pt is still taking antibiotics til Sat) and no missed doses and no change in diet Advised patient that they would be contacted regarding medication dose and when to follow up after information is reviewed by provider. After provider review please contact the patient with information and schedule follow up appointment with coumadin clinic. FYI- pt has been scheduled for an inr follow up on Thursday (12/21/17) SURGERY VISIT REPORT Observed: 12/16/2017 Status: F Source: [place] 1:57 PM [facility] REPOSITORY [facility] [address] [place] [address]. [address] [place] [address] OFFICE VISIT Date of Service: 12/15/17 MR#: [id number] Acct: [id number] Name: DANIELLA BETANCOURT Rep #: [id number] : 1935 Provider: Bethanie Malone PA-C Age/Sex: 82/F Location: [facility] Status: Signed Intake Intake Visit Reasons: recheck wound, surgery plan Chief Complaint: dressing change/ family teaching Chairman President And Chief Executive Officer Required: No Is patient in pain?: No Allergies amoxicillin Allergy (Verified 12/15/17 14:07) Unknown indomethacin [From Indocin] Allergy (Verified 12/15/17 14:07) Unknown Medications Aspirin [Aspirin, Baby] 81 mg PO DAILY@0800 11/23/17 [History Confirmed 12/15/17] Calcium Carb/Vitamin D [Os-Phi 500MG + D] 3 tab PO DAILY@0800 11/23/17 [History Confirmed 12/15/17] Cyanocobalamin [Vitamin B12] 500 mcg PO DAILY@0800 11/23/17 [History Confirmed 12/15/17] Felodipine [Plendil] 5 mg PO DAILY 11/23/17 [History Confirmed 12/15/17] Latanoprost 0.005% [Xalatan Opthalmic] 1 drp EACH EYE QHS 11/23/17 [History Confirmed 12/15/17] Losartan/Hydrochlorothiazide [Hyzaar 100-25 Tablet] 1 tab PO DAILY 11/23/17 [History Confirmed 12/15/17] Metoprolol Tartrate [Lopressor (Beta Fox)] 50 mg PO BREAKFAST 11/23/17 [History Confirmed 12/15/17] Multivit-Min/FA/Lycopen/Lutein [Senior Tabs] 1 ea PO DAILY 11/23/17 [History Confirmed 12/15/17] Warfarin [Coumadin (PBKC)] 2.5 mg PO SUTUTHFRSA 12/03/17 [History Confirmed 12/15/17] Warfarin [Coumadin (PBKC)] 5 mg PO MOWE 12/03/17 [History Confirmed 12/15/17] PFSH Medical History Afib (Chronic) Traumatic hematoma of left lower leg (Acute) Hypertension (Chronic) Glaucoma (Acute) Osteoarthritis (Acute) Bilateral lower extremity edema (Acute) Decreased dorsalis pedis pulse (Acute) Abnormal ankle brachial index (SAHIL) (Acute) Wound of left lower extremity (Acute) Surgical History History of appendectomy (Acute) History of left inguinal hernia repair (Acute) History of tubal ligation (Acute) history ORIF bilateral ankles (Acute) Family History Sister Breast cancer Father Cancer multiple myeloma Mother Cancer endometrial cancer Social History Smoking Status: Never smoker alcohol intake: never substance use type: does not use HPI HPI HPI: DANIELLA BETANCOURT, is a 82 F who presents to the office for follow-up of a traumatic hematoma. Patient was being seen at the wound center. It was recommended the patient be evaluated in the office by Dr. Patel for further debridement. Patient was evaluated on 12/[address] Patel who performed further debridement in the office. Over the weekend the patient removed the packing and placed dry gauze over top of the open wound. Patient returned for a follow-up today. She denies pain at the open wounds. She did have some drainage. She notes she has the Flagyl remaining and has completed the other antibiotic. ROS General General: No weight change, appetite, fatigue, colon cancer, breast cancer or weakness HEENT HEENT: No difficulty swallowing, eye injury, eye surgery, swollen glands or hoarseness Endo Endocrine: No thyroid disease, diabetes mellitus, thyroid cancer, Hair loss, heat intolerance or cold intolerance Skin Skin: No rash or changing moles Breast Breast: No left breast lump, right breast lump, nipple discharge, breast pain, abnormal mammogram, abnormal US or breast enlargement Musc Musculoskeletal: Yes arthritis; no back problems, rheumatoid arthritis, gout or joint pain Cardio Cardiovascular: Yes atrial fibrillation and high blood pressure; no murmur, pacemaker, heart disease, heart attack, heart stent, palpitations, shortness of breat with exertion or chest pain Psych Psychiatric: No depression, anxiety or hearing voices Resp Respiratory: No shortness of breath, No sleep apnea, No cough, No COPD, No asthma, No emphysema, No wheezing Gastro Gastrointestinal: No abdominal pain, No nausea or vomiting, No diarrhea, No constipation, No blood in stool, No acid reflux, No hemorrhoids, No ulcers, No gallbladder problem, No black,tarry stools Hilario Hematologic: Yes blood thinners, No blood disorders, No bleeding, No anemia, No blood clots Neuro Neurologic: No weakness Exam Chest Breast Palpation: No nipple discharge Cardio Heart Sounds: no murmurs Skin Other: Left lower extremity- lateral open wound 6.0 cm length x 4.0 cm width. lateral tunnel approximately 5.5 cm and medial tunnel 3.4 cm. Medial open wound 2.0 cm length x 1.0 cm width. Tunnel approximately 4.0 cm Wounds were packed with saline damped kerlix. ABD pad was applied. QUIQUE wrap was wrapped up to the knee. Moderate amount of soft tissue swelling Assessment AND Plan Problems 1. Traumatic hematoma of left lower leg, initial encounter S80.12XA Plan - Change dressing daily - Follow-up with our office in 1 week - Follow-up with the wound center in 2 weeks - Discussed patient with Dr. Patel and Rl Prajapati Coding Level of Care Code Off vis,est,level 4 Diagnoses Traumatic hematoma of left lower leg, initial encounter S80.12XA Encounter type: initial encounter 12/16/17 0777 <Electronically signed by Bethanie Malone PA-C> Date Bethnaie Bojorquez Signature: Date (if applicable) CC: PROGRESS Observed: 12/11/2017 Status: COMPLETED Source: [facility] 2:07 PM [facility] REPOSITORY HNO ID: [id number] Author: Bri Eugene LPN Service: (none) Author Type: (none) Type: Progress Notes Filed: 12/11/2017 2:08 PM Note Text: Phoned patient and went over coumadin instructions from Sweta Nguyen OPERATIONS STAFF SPECIALIST SECURITY 2.5 mg today and resume 5 mg Mon, Fri and 2.5 mg pother days and recheck INR in one week with understanding, has appt scheduled already. PROGRESS Observed: 12/11/2017 Status: COMPLETED Source: [place] 1:29 PM [facility] REPOSITORY HNO ID: [id number] Author: Sweta Nguyen Service: (none) Author Type: Nurse Practitioner Type: Progress Notes Filed: 12/11/2017 2:08 PM Note Text: Take 2.5 mg dose today instead of 5 mg and resume regular dosing after this. Okay for INR in one week. Sweta Nguyen APRN.CNP PROGRESS Observed: 12/11/2017 Status: COMPLETED Source: [place] 12:24 PM [facility] REPOSITORY HNO ID: [id number] Author: Olive Everett RN Service: (none) Author Type: (none) Type: Progress Notes Filed: 12/11/2017 12:27 PM Note Text: patient had inr completed at [facility] patients inr is 3.4 (patients inr range is 2.0-3.0) patient is currently taking 5mg Mon,Fri and 2.5mg all other days patients last dose change was 09/26/14?due to a low normal level of 2.0 (dose at that time was 5mg Mon and 2.5mg all other days) patient has had a change in medication and pt is taking doxy til Sun and Faygl until 12/16/17 and no missed doses, and no change in diet Advised patient that they would be contacted regarding medication dose and when to follow up after information is reviewed by provider. After provider review please contact the patient with information and schedule follow up appointment with coumadin clinic. FYI- patient has been scheduled for a 1 week follow up inr on 12/17/17 SURGERY VISIT REPORT Observed: 12/11/2017 Status: F Source: [facility] 11:07 AM [facility] REPOSITORY [facility] 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 President And Chief Executive Officer Required: No Is patient in pain?: No Allergies amoxicillin Allergy (Verified 12/11/17 09:49) Unknown indomethacin [From Indocin] Allergy (Verified 12/11/17 09:49) Unknown Medications Aspirin [Aspirin, Baby] 81 mg PO DAILY@0800 11/23/17 [History Confirmed 12/11/17] Calcium Carb/Vitamin D [Os-Phi 500MG + D] 3 tab PO DAILY@0800 11/23/17 [History Confirmed 12/11/17] Cyanocobalamin [Vitamin B12] 500 mcg PO DAILY@0800 11/23/17 [History Confirmed 12/11/17] Felodipine [Plendil] 5 mg PO DAILY 11/23/17 [History Confirmed 12/11/17] Latanoprost 0.005% [Xalatan Opthalmic] 1 drp EACH EYE QHS 11/23/17 [History Confirmed 12/11/17] Losartan/Hydrochlorothiazide [Hyzaar 100-25 Tablet] 1 tab PO DAILY 11/23/17 [History Confirmed 12/11/17] Metoprolol Tartrate [Lopressor (Beta Fxo)] 50 mg PO BREAKFAST 11/23/17 [History Confirmed 12/11/17] Multivit-Min/FA/Lycopen/Lutein [Senior Tabs] 1 ea PO DAILY 11/23/17 [History Confirmed 12/11/17] Warfarin [Coumadin ([facility])] 2.5 mg PO SUTUTHFRSA 12/03/17 [History Confirmed 12/11/17] Warfarin [Coumadin ([facility])] 5 mg PO MOWE 12/03/17 [History Confirmed 12/11/17] [facility] Medical History Afib (Chronic) Traumatic hematoma of left lower leg (Acute) Hypertension (Chronic) Glaucoma (Acute) Osteoarthritis (Acute) Bilateral lower extremity edema (Acute) Decreased dorsalis pedis pulse (Acute) Abnormal ankle brachial index (SAHIL) (Acute) Wound of left lower extremity (Acute) Surgical History History of appendectomy (Acute) History of left inguinal hernia repair (Acute) History of tubal ligation (Acute) history ORIF bilateral ankles (Acute) Family History Sister Breast cancer Father Cancer multiple myeloma Mother Cancer endometrial cancer Social History Smoking Status: Never smoker alcohol intake: never substance use type: does not use HPI HPI HPI: DANIELLA BETANCOURT, is a 82 F who presents to the office today for surgical consultation regarding a left lower extremity draining posttraumatic hematoma. The patient is referred by Rl Prajapati CNP for surgical consultation regarding a posttraumatic left lower extremity subcutaneous hematoma that is felt to be more extensive than currently comfortable. A written copy of my surgical consult will be returned to him. The patient states November 09, 2017 she fell while going up steps. She developed a subcutaneous hematoma. Apparently it was a couple weeks later that it spontaneously started draining. She has now been superficially having this treated. There was concern that the gelatinous hematoma extended further and a surgical consult was felt to be appropriate. It is of interest that the patient is completely a sensate. She has no discomfort in this area. She has been assisting with superficial dressing changes at home. It is of additional note that the patient currently is on oral antibiotic therapy ROS General General: No weight change, appetite, fatigue, colon cancer, breast cancer or weakness HEENT HEENT: No difficulty swallowing, eye injury, eye surgery, swollen glands or hoarseness Endo Endocrine: No thyroid disease, diabetes mellitus, thyroid cancer, Hair loss, heat intolerance or cold intolerance Skin Skin: No rash or changing moles Breast Breast: No left breast lump, right breast lump, nipple discharge, breast pain, abnormal mammogram, abnormal US or breast enlargement Musc Musculoskeletal: Yes arthritis; no back problems, rheumatoid arthritis, gout or joint pain Cardio Cardiovascular: Yes atrial fibrillation and high blood pressure; no murmur, pacemaker, heart disease, heart attack, heart stent, palpitations, shortness of breat with exertion or chest pain Psych Psychiatric: No depression, anxiety or hearing voices Resp Respiratory: No shortness of breath, No sleep apnea, No cough, No COPD, No asthma, No emphysema, No wheezing Gastro Gastrointestinal: No abdominal pain, No nausea or vomiting, No diarrhea, No constipation, No blood in stool, No acid reflux, No hemorrhoids, No ulcers, No gallbladder problem, No black,tarry stools Hilario Hematologic: Yes blood thinners, No blood disorders, No bleeding, No anemia, No blood clots Neuro Neurologic: No weakness Exam Chest Breast Palpation: No nipple discharge Cardio Heart Sounds: no murmurs Extrem Other: The left lower extremity has 2 wounds. One is more medial and punctate about 2 cm diameter and there is a 4 cm plug and at which is removed. The wound itself more major wound is over the left distal pretibial area and extends for at least 6 cm irregularly diameter. Assessment AND Plan Problems 1. Traumatic hematoma of left lower leg, initial encounter S80.12XA Plan Upon inspection of this wound started probing with a Q-tip and then some 4 x 4 gauze. I removed all previous dressings. Upon gauze dissection I was able to debride much of the clot. I did some sharp scissor dissection of nonviable superficial skin. I then continue to use the 4 x 4's to bluntly debride. It is apparent that there was dissection along the superficial fascia for at least 12 cm proximally. There is quite a sizable cavity. It is deeply placed and so the overlying skin is viable. The patient has significant venous stasis changes of the left lower extremity which are chronic. At the completion I packed the wound with moistened Kerlix gauze. ABDs and cover dressing applied. I believe that at least initially saline wet-to-dry dressing changes would be appropriate. Unfortunately it is not clear to me that she will be able to resolve this deep of the wound without aggressively debriding the skin and subcutaneous tissue. The size of the subcutaneous defect however is extensive. She would require an extensive sharp debridement with subsequent wound VAC application and possible future skin grafting. I believe that it is reasonable to initiate a saline wet-to-dry dressing change to see if some wound closure and approximation of the deep open space can be achieved. The patient of course is still on Coumadin. Her INR is running high today at over 3. We will have her return to my office next week. We are contacting the wound care center for assistance with her ongoing dressing needs. Cc: Rl Prajapati, JEANETTE Patel M.D., F.A.C.S. Office time 20 minutes Coding Level of Care Code Exp prob focused,strt fwd Diagnoses Traumatic hematoma of left lower leg, initial encounter S80.12XA Encounter type: initial encounter 12/11/17 1107 <Electronically signed by Francois Patel MD> Date Francois Patel MD Cosigner Signature: Date (if applicable) CC: Rl Prajapati OPERATIONS STAFF SPECIALIST SECURITY; Abdirahman Cole MD DISCHARGE INSTRUCTION Observed: 12/03/2017 Status: F Source: [facility] 8:06 PM [facility] REPOSITORY [facility] Medical Records Department [address] [place] [id number] Discharge Instruction 12/03/172003 MR#: [id number] Acct: [id number] Name: DANIELLA BETANCOURT Rep #: [id number] : 1935 82 From: Darrel Marx MD PCP: Abdirahman Cole MD Status: PRE ER ED Disposition - Plan for ED Patient: Chief Complaint: Wound Check Referrals: Abdirahman Cole MD [Primary Care Provider] - Francois Patel MD [STAFF PHYSICIAN] - Additional Instructions: You were seen for a wound check. Your wound does not appear infected. Continue to follow-up with the wound clinic. You can also follow-up with Dr. Cebul. He should return if you develop any fevers redness drainage or increased pain. What to do if you have Problems For any increased pain, shortness of breath, bleeding, nausea or vomiting, chest pain, or any unexpected problems, contact your Primary Care Provider. Call [facility] ([phone]) or report to the closest Emergency Room. Call 911 if necessary. 12/03/172005 <Electronically signed by Darrel Marx MD> Date Darrel Marx MD Cosigner Signature (If Indicated): Date CC: Abdirahman Cole MD EMERGENCY DEPARTMENT Observed: 12/03/2017 Status: F Source: [facility] [place] SUMMARY 8:04 PM [facility] RE[facility]ITORY [facility] Medical Records Department [address] [place] [address] Emergency Department Summary 12/03/172001 MR#: [id number] Acct: [id number] Name: DANIELLA BETANCOURT Rep #: [id number] : 1935 82 From: Darrel Marx MD PCP: Abdirahman Cole MD Status: PRE ER - ER Visit Summary Date of Service: 12/03/17 Chief Complaint: Wound check History of Present Illness: The patient is a 82 F who presents for a wound check. She had a fall on November 09 with hematoma and open wounds to the left leg. She saw wound care today and had some debridement and packing. She states that she may need to see a surgeon. 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 She was told that this was not urgent. She denies any fevers increased pain drainage nausea vomiting diarrhea. She states she was told that we may be able to clean it up a bit for her. Physical Examination: Afebrile vitals are normal Moist mucous membranes Heart regular rate and rhythm Lungs are clear Abdomen soft Patient has open wounds of left lower extremity there is no erythema foul odor or drainage Test Results: Not indicated Emergency Department Course and Treatment: It is unclear why the patient was advised that she could or should be seen in the emergency department. I explained that this was not something we would have a surgeon see her for urgently but rather in outpatient follow-up. I also explained that in regards to wound care this is why she is in fact seeing the wound clinic. Does appear she was referred to Dr. Patel. She was given his contact information. She was instructed on signs and symptoms that should prompt her to be evaluated here in the emergency department and was discharged home. Treatment Plan: [] Disposition: Discharge Impression: Wound check left leg This note was generated with [employer] dictation software. It may contain incorrect words, spelling, and punctuation that were not noted in review of the chart prior to signing ED Disposition - Plan for ED Patient: Chief Complaint: Wound Check Referrals: Abdirahman Cole MD [Primary Care Provider] - What to do if you have Problems For any increased pain, shortness of breath, bleeding, nausea or vomiting, chest pain, or any unexpected problems, contact your Primary Care Provider. Call [facility] ([phone]) or report to the closest Emergency Room. Call 911 if necessary. 12/03/172003 <Electronically signed by Darrel Marx MD> Date Darrel Marx MD Cosigner Signature (If Indicated): Date CC: Abdirahman Cole MD MRSA WOUND DNA BY Collected: 12/03/2017 Status: F Source: [facility] PCR 5:15 PM [facility] REPOSITORY Order Comment: Specimen Source? LLE TYPE CODE TESTS RESULT OUT OF RANGE REFERENCE UNITS LAB L8200.1100 Negative Normal MRSA Negative RESULT LAB L8200.1150 Negative Normal SA RESULT NEGATIVE Performed By: #### [id number] #### [facility] [address] [place], [address] Observed: 12/03/2017 Status: F Source: [place] [place] CULTURE, DEEP WOUND 5[facility]15 [facility] Copy of report sent to Infection Control Printer [id number] 12/07/17 Gibson MERA. Gram Stain Gram Stain 1+ Gram positive cocci 1+ White Blood Cells No organisms seen Wound Culture #3 There are no CLSI standards for interpretation of this Drug/Organism combination. Clinical correlation necessary, Possible skin contamination. ORGANISM 1: Staphylococcus lugdunensis Amount Growth Rare ORGANISM 2: Staphylococcus capitis Amount Growth Rare ORGANISM 3: Corynebacterium urealyticum Amount Growth Rare Staphylococcus lugdunensis: REACTION Benzylpenicillin NF 0.06 R Cefoxitin *NF - Clindamycin $$ <=0.25 S Inducable Clindamycin Resistan - Erythromycin $ <=0.25 S Gentamicin $ <=0.5 S Levofloxacin $ <=0.12 S Oxacillin NF 1 S Tigecycline $$$$ <=0.12 S Rifampin $$ <=0.5 S Tetracycline NF <=1 S Vancomycin $ <=0.5 S (NF) indicates non-formulary drug at [facility]. Approval by Infectious Disease Specialist required before non-formulary drugs may be ordered and/or dispensed. * CLSI guidelines does not recommend testing of cephalosporins. This interpretation is deduced from Beta-lactam/penicillin results. Staphylococcus capitis: REACTION Benzylpenicillin NF <=0.03 R Cefoxitin *NF - Clindamycin $$ <=0.25 S Inducable Clindamycin Resistan - Erythromycin $ <=0.25 S Gentamicin $ <=0.5 S Levofloxacin $ 4 I Oxacillin NF <=0.25 S Tigecycline $$$$ <=0.12 S Rifampin $$ <=0.5 S Tetracycline NF >=16 R Vancomycin $ <=0.5 S (NF) indicates non-formulary drug at [facility]. Approval by Infectious Disease Specialist required before non-formulary drugs may be ordered and/or dispensed. * CLSI guidelines does not recommend testing of cephalosporins. This interpretation is deduced from Beta-lactam/penicillin results. Cult, Anaerobic #1 Studies Have Confirmed That B. Fragilis Group are Routinely Susceptible to: Metronidazole, Piperacillin/Tazobactam, Tigecycline, Ertapenem, Imipenem, Meropenem and variable in resistance to: Clindamycin, Moxifloxacin, Cefoxitin and Ampicillin/Sulbactam. #2 Studies have confirmed that Anaerobic Gram Positive Cocci are routinely susceptible to: Penicillin/Ampicillin, Ampicillin/Sulbactam, Piperacillin/Tazobactam, Cefoxatin, Ertapenem, Imipenem, Meropenem and Metronidazole and vary in resistance to: Clindamycin and Moxifloxacin. #3 Studies Have Confirmed That Clostridium perferingens is routinely susceptible to: Ampicillin/Sulbactam, Piperacillin/Tazobactam, Cefoxitin, Ertapenem, Imipenem, Meropenem, Penicillin/Ampicillin, Moxifloxacin, Clindamycin and Metronidazole. Clostridium species other than C. perferingens are variable in resistance to: Cefoxitin, Clindamycin, Moxifloxacin, imipenem and Penicillin/Ampicillin. RESULTS CALLED TO WOUND CENTER NURSE LINE 12/07/17 9782 Maricruz Hernandez. ORGANISM 1: Bacteroides fragilis group Beta Lactamase Positive ORGANISM 2: Anaerobic cocci ORGANISM 3: Clostridium species Performed By: #### M100.1500 #### [facility] [address] [place] [address]. [place], [address] PROGRESS Observed: 11/24/2017 Status: COMPLETED Source: [place] 3:40 PM [facility] REPOSITORY HNO ID: [id number] Author: Abdirahman Cole Service: (none) Author Type: Physician Type: Progress Notes Filed: 11/24/2017 3:40 PM Note Text: Okay. PROGRESS Observed: 11/24/2017 Status: COMPLETED Source: [place] 12:42 PM [facility] REPOSITORY HNO ID: [id number] Author: Olive Everett RN Service: (none) Author Type: (none) Type: Progress Notes Filed: 11/24/2017 12:43 PM Note Text: patient had inr completed at [facility] patients inr is 2.2 (patients inr range is 2.0-3.0) patient is currently taking 5mg Mon,Fri and 2.5mg all other days patients last dose change was 09/26/14?due to a low normal level of 2.0 (dose at that time was 5mg Mon and 2.5mg all other days) patient has had no changes in medication and no missed doses and no change in diet Advised patient to continue on the same dose(s) and that they would only be contacted regarding dosage and follow up instructions after review with provider, if a change is needed. Written instructions given and patient verbalized understanding. Presently scheduled in 4 weeks (12/24/17) for follow up INR. WOUND CTR HISTORY Observed: 11/23/2017 Status: F Source: [facility]I [facility] PHYSICAL 11:45 AM [facility] RE[facility]IT[facility] [address] [place] [address] Wound Ctr History AND Physical 11/23/17 1130 MR#: [id number] Acct: [id number] Name: DANIELLA BETANCOURT Rep #: [id number] : 1935 82 From: Rl ASENCIO PCP: Abdirahman Cole MD Status: REG RCR Y Location: WC (1) Traumatic hematoma of left lower leg Status: Acute Current Visit: Yes Code(s): S80.12XA - Contusion of left lower leg, initial encounter (2) Hypertension Status: Chronic Current Visit: Yes Code(s): I10 - Essential (primary) hypertension (3) Glaucoma Status: Acute Current Visit: Yes Code(s): H40.9 - Unspecified glaucoma (4) Osteoarthritis Status: Acute Current Visit: Yes Code(s): M19.90 - Unspecified osteoarthritis, unspecified site (5) Afib Status: Chronic Current Visit: No Code(s): I48.91 - Unspecified atrial fibrillation (6) Bilateral lower extremity edema Status: Acute Current Visit: Yes Code(s): R60.0 - Localized edema (7) Decreased dorsalis pedis pulse Status: Acute Current Visit: Yes Code(s): R09.89 - Other specified symptoms and signs involving the circulatory and respiratory systems (8) Abnormal ankle brachial index (SAHIL) Status: Acute Current Visit: Yes Code(s): R68.89 - Other general symptoms and signs History of Present Illness Date of Service: 11/23/17 Chief Complaint: hematoma left lower extremity x 2 anterior surface History of Wound: This is an 82-year-old white female who presents to the wound healing center with complaints of traumatic hematomas to the left lower extremity and bilateral lower extremity edema. She has a past medical history as listed above. It should be noted that she has persistent atrial fibrillation and on chronic Coumadin therapy. The patient states that she was carrying her dog and fell on 11/09/2017 and presented to the emergency department. An x-ray of her left ankle was negative at that time. She states that shortly after she noticed an increase in redness and swelling to her left lower extremity. She had a venous duplex ultrasound which was negative for DVT and she had a repeat ultrasound on 11/17/2017 which demonstrated to areas of the left lower extremity consistent with either an abscess or probable seroma which measured 4.9 cm and the other 6.4 cm. She states that she has been utilizing no compression and has been utilizing triple antibiotic ointment and ice. She denies any signs of systemic infection at this time and does state that the redness and warmth has diminished greatly. She denies any other aggravating or relieving factors. She does note occasional serous discharge. The patient otherwise denies any fever, chills, nausea, vomiting, shortness of breath, chest pain or pressure, palpitations, orthopnea, lower extremity edema, syncope or presyncopal episodes. Past Medical History Past Medical History: Chronic Problems Afib (Chronic) Hypertension (Chronic) Allergies/Adverse Reactions: Allergies amoxicillin Allergy (Verified 11/09/17 21:10) Unknown indomethacin [From Indocin] Allergy (Verified 11/09/17 21:10) Unknown Home Medications: Ambulatory Orders Medication Instructions Recorded Aspirin [Aspirin, Baby] 81 mg PO DAILY@0800 11/23/17 Smoking Status: Never smoker Review of Systems Constitutional: Denies: Chills, Fever, Weight Change Eyes: Denies: Pain, Vision Change HEENT: Denies: Difficulty Hearing, Difficulty Swallowing, Sinus Congestion Cardiovascular: Denies: Chest Pain, Palpitations Respiratory: Denies: Cough, Shortness of Breath Gastrointestinal: Denies: Diarrhea, Nausea, Vomiting Genitourinary: Denies: Dysuria, Hematuria Skin: Reports: Wounds - Hematoma see HPI Psychiatric: Denies: Anxiety, Depression Endocrine: Denies: Heat/ Cold Intolerance, Polydipsia, Polyuria Hematologic/ Lymphatic: Denies: Easy Bruising, Easy Bleeding - Physical Exam Vital Signs Temp Pulse Resp BP 97.9 F 95 18 104/64 11/23/17 10:17 11/23/17 10:17 11/23/17 10:17 11/23/17 10:17 General: Alert, Oriented x3, Cooperative, No apparent distress HEENT: Atraumatic, PERRLA, EOMI Oral: Moist Mucosa Lungs: Clear to auscultation, Normal air movement, No rhonchi, No wheeze, No rales Cardiovascular: Irregular Rate - irreg irreg, Murmur - grade 2 systolic murmur heard best aortic Abdomen: Bowel Sounds Present, Soft, Non Tender, Non-Distended, Obese Extremities: Cool, Diminished Peripheral Pulses, Edema - 3+ edema left lower extremity 2+ right lower extremity edema Skin: - - Hematoma present left lower extremity anterior and medial lower leg with fluctuance noted, minimal erythema present and no warmth noted at this time. Minimal serous drainage. Wound Measurements and Assessment WC - Nurse 1 - General Ulcer Measurement Start: 11/23/17 10:17 Freq: Status: Active Protocol: Activity Type Activity Date Activity User E-Sign Co-Sign Detail Recorded Client Recorded Date Recorded By Document 11/23/17 10:17 RB [id number] 11/23/17 10:36 RB Wound Center Nurse 1 [Ulcer Assessment] 2. L lateral chow WC - Nurse 2 - General Ulcer CM Notes Start: 11/23/17 10:17 Freq: Status: Active Protocol: Activity Type Activity Date Activity User E-Sign Co-Sign Detail Recorded Client Recorded Date Recorded By Document 11/23/17 10:54 [id number] 11/23/17 11:09 Wound Center Nurse 2 [Procedure/Treatment] 2. L lateral chow -Time 10:54 Neurological: Neuro grossly intact Psych/Mental Status: Normal Affect, Appropriate, Alert and oriented to time, place, person, mood and affect Debridement Note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 L100.2000 6.2-12.0 fl Normal MPV 10.1 Performed By: #### L100.0500 #### [facility] [address] [place], [address] PROTHROMBIN TIME W/INR Collected: 11/09/2017 Status: F Source: RASHI 10:30 PM [facility] REPOSITORY TYPE CODE TESTS RESULT OUT OF RANGE REFERENCE UNITS LAB L300.4150 11.7-14.9 SECONDS High PROTIME 23.4 LAB L300.4200 Normal INR 2.1 Performed By: #### L300.3900 #### [facility] [address] [place], [address] TIBIA AND FIBULA Observed: 11/09/2017 Status: F Source: RASHI 2 VIEWS 10:18 PM [facility] REPOSITORY [facility] Services [address] [facility] [place] [address] Tibia AND Fibula 2 Views MR#: [id number] Acct: [id number] Name: DANIELLA BETANCOURT Rep #: [id number] : 1935 F 82 From: Eli Valle MD PCP: Abdirahman Cole MD Status: REG ER Study: Tibia AND Fibula 2 Views Date of Exam: 11/09/17 Exam# [id number] Ordering Dr: Eli England MD STUDY: X-RAY - LEFT TIBIA AND FIBULA REASON FOR EXAM: Female, 82 years old. Pain. Fall. Bruising TECHNIQUE: Frontal and lateral view(s) of the tibia and fibula were obtained. COMPARISON: None. FINDINGS: There is demineralization of the tibia. There is demineralization of the fibula. There is degenerative change of the visualized ankle. There is no demonstrated acute fracture. There is anterior soft tissue swelling. RAD/Tibia AND Fibula 2 Views IMPRESSION: Soft tissue swelling. No fracture Electronically Signed: Eli Valle MD at 22:55 EDT , Service support , CC: ELI ENGLAND MD; Abdirahman Cole MD Tax Compliance Agent: Signed PROGRESS Observed: 10/29/2017 Status: COMPLETED Source: [place] 4:34 PM [facility] REPOSITORY HNO ID: [id number] Author: Abdirahman Cole Service: (none) Author Type: Physician Type: Progress Notes Filed: 10/29/2017 4:34 PM Note Text: Ok. PROGRESS Observed: 10/29/2017 Status: COMPLETED Source: [place] 12:28 PM [facility] REPOSITORY HNO ID: [id number] Author: Olive Everett RN Service: (none) Author Type: (none) Type: Progress Notes Filed: 10/29/2017 12:29 PM Note Text: patient had inr completed at [facility] patients inr is 2.2 (patients inr range is 2.0-3.0) patient is currently taking 5mg Mon,Fri and 2.5mg all other days patients last dose change was 09/26/14 due to a low normal level of 2.0 (dose at that time was 5mg Mon and 2.5mg all other days) patient has had no changes in medication and no missed doses and no change in diet Advised patient to continue on the same dose(s) and that they would only be contacted regarding dosage and follow up instructions after review with provider, if a change is needed. Written instructions given and patient verbalized understanding. Presently scheduled in 4 weeks (11/24/17) for follow up INR. PROGRESS Observed: 10/29/2017 Status: COMPLETED Source: [place] 11:15 AM [facility] REPOSITORY O ID: [id number] Author: Abdirahman Cole Service: (none) Author Type: Physician Type: Progress Notes Filed: 10/29/2017 11:33 AM Note Text: This note was created using Feedback-Machineter. Subjective Daniella Betancourt is a 82 year old female here for follow up. She was doing well. Her arthritis was bothersome with overexertion at times, but typically not painful at night, or limiting her activities of daily living. Hypertension and atrial fibrillation was controlled. Anticoagulation was maintained. ACTIVE PROBLEM LIST Osteopenia Essential Hypertension Primary Osteoarthritis of Both Ankles Atrial Fibrillation (Hcc) Tinnitus Nonrheumatic Aortic Valve Stenosis Current Outpatient Prescriptions: felodipine ER (PLENDIL) 5 mg 24 hr tablet Take 1 tablet by mouth once daily. losartan-hydrochlorothiazide (HYZAAR) 100-25 mg per tablet Take 1 tablet by mouth once daily. metoprolol tartrate, short acting, (LOPRESSOR) 25 mg tablet TAKE TWO TABLETS BY MOUTH IN THE MORNING AND TAKE ONE TAB BY MOUTH IN THE EVENING latanoprost (XALATAN) 0.005 % ophthalmic solution 1 Drop daily at bedtime. Cyanocobalamin 500 mcg lozg Take 1 tablet by mouth once daily. Aspirin 81 mg Tab once daily. calcium carbonate-vitamin D 500-125 mg-unit ORAL Tab three tablets daily SPECTRAVITE SENIOR TAB Take one(1) tablet daily. warfarin (COUMADIN) 5 mg tablet Take 1 tablet by mouth daily as directed. No current facility-administered medications for this visit. Review of Systems Constitutional: Negative. Respiratory: Negative. Cardiovascular: Negative. Gastrointestinal: Negative. Musculoskeletal: Positive for arthralgias and gait problem. Objective BP 124/74 (BP Site: Right Arm, BP Position: Sitting, BP Cuff Size: Regular Adult) Pulse 68 Temp 36.1 ?C (97 ?F) (Left Tympanic) Resp 16 Wt 78 kg (172 lb) BMI 32.50 kg/m? Physical Exam Constitutional: No distress. HENT: Head: Normocephalic. Eyes: Conjunctivae are normal. Cardiovascular: S1 normal and S2 normal. An irregular rhythm present. Exam reveals no gallop. Murmur heard. Systolic murmur is present with a grade of 2/6 LSB Pulmonary/Chest: Breath sounds normal. Musculoskeletal: She exhibits edema. Assessment and Plan 1. Persistent atrial fibrillation (HCC) - ICD9: 427.31, ICD10: I48.1 (primary diagnosis) Controlled. See anticoagulation encounter. 2. Need for vaccination - ICD9: V05.9, ICD10: Z23 - ADMIN OF INFLUENZA VACCINE - INFLUENZA SEASONAL HIGH DOSE AGE 65+ 3. Essential hypertension - ICD9: 401.9, ICD10: I10 - good control 4. Primary osteoarthritis of both ankles - ICD9: 715.17, ICD10: M19.071, M19.072 Options reviewed. Symptoms stable. No referral needed at this time. She had gone to [facility] in the remote past and was instructed to return if her feet pains were worse. 5. Need for shingles vaccine - ICD9: V04.89, ICD10: Z23 VIS given. Abdirahman Cole MD CBC Collected: 10/29/2017 Status: F Source: [facility] 11:06 AM [facility] TYPE CODE TESTS RESULT OUT OF REFERENCE UNITS RANGE LAB WBC 3.70-11.00 k/uL WBC 5.07 LAB RBC 3.90-5.20 m/uL RBC 4.20 LAB HGB 11.5-15.5 g/dL Hemoglobin 14.4 LAB HCT 36.0-46.0 % Hematocrit 44.4 LAB MCV 80.0-100.0 fL MCV High 105.7 LAB MCH 26.0-34.0 pG MCH High 34.3 LAB MCHC 30.5-36.0 g/dL MCHC 32.4 LAB RDWCV 11.5-15.0 % RDW-CV 13.7 LAB PLTCT 150-400 k/uL Platelet Count 280 LAB MPV 9.0-12.7 fL MPV 10.7 LAB ABSNUC <0.01 k/uL Absolute nRBC <0.01 Performed By: #### CBC, BMP, LIPNF, NTBNP #### [facility] [address] [place], [place] [address] BASIC METABOLIC PANL Collected: 10/29/2017 Status: F Source: [place] 11:06 AM [facility] REPOSITORY TYPE CODE TESTS RESULT OUT OF REFERENCE UNITS RANGE LAB GLU 74-99 mg/dL Low Glucose 68 Result Comment: The [place] Diabetes Association (ADA) provides guidance for cutoff values for fasting glucose and random glucose. The ADA defines fasting as no caloric intake for at least 8 hours. Fas ting plasma glucose results between 100 to 125 mg/dL indicate increased risk for diabetes (prediabetes). Fasting plasma glucose results greater than or equal to 126 mg/dL meet the criteria for diagnosis of diabetes. In the absence of unequivocal hyperglycemia, results should be confirmed by repeat testing. In a patient with classic symptoms of hyperglycemia or hyperglycemic crisis, random plasma glucose results greater than or equal to 200 mg/dL meet the criteria for diagnosis of diabetes. Reference: Standards of Medical Care in Diabetes 2016, [place] Diabetes Association. Diabetes Care. 2016.39(Suppl 1). LAB BUN 7-21 mg/dL BUN 14 LAB CRET 0.58-0.96 mg/dL Creatinine 0.68 LAB NA 136-144 mmol/L Sodium 138 LAB K 3.7-5.1 mmol/L Potassium 4.0 LAB CL 97-105 mmol/L Chloride Low 95 LAB CO2 22-30 mmol/L CO2 27 LAB AGAP 9-18 mmol/L Anion Gap 16 LAB CA 8.5-10.2 mg/dL Calcium, Total 10.1 LAB GFRAA eGFR- Amer. >60 LAB GFRNAA . eGFR-All Other Races >60 Result Comment: eGFR (Estimated GFR) Units of measure: mL/min/1.73 meters squared eGFR is derived from the reexpressed MDRD Study equation using the following parameters: serum creatinine, age, gender and race. The creatinine assay has been calibrated to be traceable to IDMS. An eGFR <60 mL/min/1.73m2 for >3 months is consistent with chronic kidney disease. Refer to KDOQI guidelines for clinical interpretation. In patients with unstable renal function, e.g. those with acute kidney injury, the eGFR may not accurately reflect actual GFR. Performed By: #### CBC, BMP, LIPNF, NTBNP #### [facility] [address] [place], [place] [address] LIPID PANEL, NONFAST Collected: 10/29/2017 Status: F Source: [place] 11:06 AM [facility] REPOSITORY TYPE CODE TESTS RESULT OUT OF REFERENCE UNITS RANGE LAB CHOLNF <200 mg/dL Total High Cholesterol NF 209 Result Comment: <200 mg/dL, Desirable 200-239 mg/dL, Borderline high >239 mg/dL, High LAB TRIGNF <150 mg/dL Triglycerides, NF High 155 Result Comment: <150 mg/dL, Normal 150-199 mg/dL, Borderline high 200-499 mg/dL, High >499 mg/dL, Very high LAB HDLNF >39 mg/dL HDL Cholesterol, NF 53 Result Comment: 40-59 mg/dL, Acceptable >59 mg/dL, High: Negative risk factor for coronary heart disease <40 mg/dL, Low: Positive risk factor for coronary heart disease LAB LDLNF <100 mg/dL LDL Cholesterol, High NF 125 Result Comment: <100 mg/dL, Optimal 100-129 mg/dL, Near optimal/above optimal 130-159 mg/dL, Borderline high 160-189 mg/dL, High >189 mg/dL, Very high Secondary prevention optimal LDL Cholesterol levels are recommended to be < 70 mg/dL LAB NOHDLN <130 mg/dL High Non HDL Chol, 156 NF Result Comment: <130 mg/dL, Optimal 130-159 mg/dL, Near optimal/above optimal 160-189 mg/dL, Borderline high 190-219 mg/dL, High >219 mg/dL, Very high Secondary prevention optimal non HDL Cholesterol levels are recommended to be < 100 mg/dL LAB VLDLNF <30 mg/dL VLDL Cholesterol, High NF 31 LAB TCHDLN <5.10 mg/dL T Chol/HDL Ratio NF 3.94 LAB LDLHDN <2.54 mg/dL LDL/HDL Ratio, NF 2.36 Result Comment: Reference: 1. National Cholesterol Education Program ATP III Guideline At-A-Glance Quick Desk Reference: National Heart, Lung, and Blood [place]. National Institutes of Health. 2001: NIH Publication No. 01-3305. 2. An International Atherosclerosis Society position paper: global recommendations for the management of dyslipidemia: executive summary, Atherosclerosis. 2014: 232(2):410-413. Performed By: #### CBC, BMP, LIPNF, NTBNP #### [facility] [employer] [address] [place], [place] [address] NT PRO BNP Collected: 10/29/2017 Status: F Source: [place] 11:06 AM [facility] REPOSITORY TYPE CODE TESTS RESULT OUT OF REFERENCE UNITS RANGE LAB PBNP <450 pg/mL High PRO B Natr 1152 Peptide Performed By: #### CBC, BMP, LIPNF, NTBNP #### [facility] [employer] [address] [place], [place] [id number] CNOV Observed: 10/29/2017 Status: COMPLETED Source: [place] 9:40 AM [facility] REPOSITORY Office Visit (INTMWS) DANIELLA BETANCOURT ([id number]) 1935 F Date Time Provider Department 10/29/17 9:40 AM ABDIRAHMAN COLE INTMWS During your visit today, we recorded the following information about you: Temperature Pulse Respiration Blood pressure 97 degrees 68/minute 16/minute 124/74 Weight 78 kg Sherri Gayle LPN 10/29/2017 10:14 AM Signed Influenza Vaccine Documentation: ? Patient is identified by name and date of : Yes ? Patient is older than 6 months of age: Yes ? Patient denies a severe allergy to any vaccine component or to a previous dose of influenza vaccine: Yes FOR EGG ALLERGY CONCERNS, REFER TO PROVIDER. ? Denies allergy to gelatin, formaldehyde, thimerosol :Yes ? Patient is afebrile and not moderately or severely ill: Yes ? Does the patient have a history of Guillain ?Island Syndrome (a severe paralytic illness): No ? Denies bone marrow transplant prior 6 months or solid organ transplant prior 3 months: Yes ? Denies a history of fainting after a prior injection or medical procedure? Yes If patient has fainted in the past, the CDC recommends sitting or lying down for 15 minutes after the vaccination. ? VIS sheet provided: Yes ? See Immunization Form in [facility] for details of immunizations administered today. If patient reports dizziness, vision changes or ringing in the ears post vaccination ? please have patient sit or lie down for 15 minutes. Abdirahman Cole MD 10/29/2017 10:43 AM Signed Recombinant shingles vaccine (Shingrix) is recommended; 2 doses 2-6 months apart. Please read information, check with your insurance, and call to schedule vaccination. You may also be directed to your local pharmacy. Abdirahman Cole MD 10/29/2017 11:33 AM Signed This note was created using Flipter. Subjective Daniella Betancourt is a 82 year old female here for follow up. She was doing well. Her arthritis was bothersome with overexertion at times, but typically not painful at night, or limiting her activities of daily living. Hypertension and atrial fibrillation was controlled. Anticoagulation was maintained. ACTIVE PROBLEM LIST Osteopenia Essential Hypertension Primary Osteoarthritis of Both Ankles Atrial Fibrillation (Hcc) Tinnitus Nonrheumatic Aortic Valve Stenosis Current Outpatient Prescriptions: felodipine ER (PLENDIL) 5 mg 24 hr tablet Take 1 tablet by mouth once daily. losartan-hydrochlorothiazide (HYZAAR) 100-25 mg per tablet Take 1 tablet by mouth once daily. metoprolol tartrate, short acting, (LOPRESSOR) 25 mg tablet TAKE TWO TABLETS BY MOUTH IN THE MORNING AND TAKE ONE TAB BY MOUTH IN THE EVENING latanoprost (XALATAN) 0.005 % ophthalmic solution 1 Drop daily at bedtime. Cyanocobalamin 500 mcg lozg Take 1 tablet by mouth once daily. Aspirin 81 mg Tab once daily. calcium carbonate-vitamin D 500-125 mg-unit ORAL Tab three tablets daily SPECTRAVITE SENIOR TAB Take one(1) tablet daily. warfarin (COUMADIN) 5 mg tablet Take 1 tablet by mouth daily as directed. No current facility-administered medications for this visit. Review of Systems Constitutional: Negative. Respiratory: Negative. Cardiovascular: Negative. Gastrointestinal: Negative. Musculoskeletal: Positive for arthralgias and gait problem. Objective BP 124/74 (BP Site: Right Arm, BP Position: Sitting, BP Cuff Size: Regular Adult) Pulse 68 Temp 36.1 ?C (97 ?F) (Left Tympanic) Resp 16 Wt 78 kg (172 lb) BMI 32.50 kg/m? Physical Exam Constitutional: No distress. HENT: Head: Normocephalic. Eyes: Conjunctivae are normal. Cardiovascular: S1 normal and S2 normal. An irregular rhythm present. Exam reveals no gallop. Murmur heard. Systolic murmur is present with a grade of 2/6 LSB Pulmonary/Chest: Breath sounds normal. Musculoskeletal: She exhibits edema. Assessment and Plan 1. Persistent atrial fibrillation (HCC) - ICD9: 427.31, ICD10: I48.1 (primary diagnosis) Controlled. See anticoagulation encounter. 2. Need for vaccination - ICD9: V05.9, ICD10: Z23 - ADMIN OF INFLUENZA VACCINE - INFLUENZA SEASONAL HIGH DOSE AGE 65+ 3. Essential hypertension - ICD9: 401.9, ICD10: I10 - good control 4. Primary osteoarthritis of both ankles - ICD9: 715.17, ICD10: M19.071, M19.072 Options reviewed. Symptoms stable. No referral needed at this time. She had gone to [facility] in the remote past and was instructed to return if her feet pains were worse. 5. Need for shingles vaccine - ICD9: V04.89, ICD10: Z23 VIS given. Abdirahman Cole MD Referring Provider: ABDIRAHMAN COLE [[id number]] Allergies As of Date: 10/29/2017 Noted Allergy Reaction AMOXICILLIN 12/02/2004 2 - Rash CATS 01/06/2006 5 - Intolerance Comments: low grade tempeture, fatigue INDOCIN (INDOMETHACIN) 12/02/2004 2 - Rash Date Reviewed: 10/29/2017 Reviewed by: Sherri Gayle LPN - Fully Assessed Reason for Visit: F/U 6 Month [444] Primary Visit Diagnosis:Persistent atrial fibrillation (HCC) [I48.1] Other Visit Diagnoses:Need for vaccination [Z23] Essential hypertension [I10] Primary osteoarthritis of both ankles [M19.071, M19.072] Need for shingles vaccine [Z23] Order(s):ADMIN OF INFLUENZA VACCINE [[id number]] Order #: [id number]: 1 INFLUENZA SEASONAL HIGH DOSE AGE 65+ [[id number]] Order #: [id number] warfarin (COUMADIN) 5 mg tabletTake 1 tablet by mouth daily as directed.Disp: 30 tabletRfl: 11 Prescriptions as of 10/29/2017 Sig: FELODIPINE ER 5 MG TABLET,EXT* Take 1 tablet by mouth once d* LOSARTAN 100 MG-HYDROCHLOROTH* Take 1 tablet by mouth once d* METOPROLOL TARTRATE 25 MG TAB* TAKE TWO TABLETS BY MOUTH IN * LATANOPROST 0.005 % EYE DROPS 1 Drop daily at bedtime. CYANOCOBALAMIN (VIT B-12) 500* Take 1 tablet by mouth once d* ASPIRIN 81 MG TABLET once daily. CALCIUM CARB-ERGOCALCIFEROL (* three tablets daily SPECTRAVITE SENIOR TABLET Take one(1) tablet daily. WARFARIN 5 MG TABLET Take 1 tablet by mouth daily * Problem List As Of Date 10/29/2017 Noted Resolved Osteopenia [M85.80] More... Allergy, unspecified not elsewhere classified [* 10/25/2014 Essential hypertension [I10] More... 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 Other and unspecified hyperlipidemia [E78.5] INVALID FOR*06/20/2010 More... Lipoma of unspecified site [D17.9] INVALID FOR*10/25/2014 Atrial fibrillation [I48.91] INVALID FOR* Tinnitus [H93.19] INVALID FOR* Nonrheumatic aortic valve stenosis [I35.0] INVALID FOR* Other instructions from your clinician: Recombinant shingles vaccine (Shingrix) is recommended; 2 doses 2-6 months apart. Please read information, check with your insurance, and call to schedule vaccination. You may also be directed to your local pharmacy. Visit Notes: >> Sherri Gayle LPN [place] Oct 29, 2017 10:07 AM Status: Signed Influenza Vaccine Documentation: ? Patient is identified by name and date of : Yes ? Patient is older than 6 months of age: Yes ? Patient denies a severe allergy to any vaccine component or to a previous dose of influenza vaccine: Yes FOR EGG ALLERGY CONCERNS, REFER TO PROVIDER. ? Denies allergy to gelatin, formaldehyde, thimerosol :Yes ? Patient is afebrile and not moderately or severely ill: Yes ? Does the patient have a history of Guillain ?Island Syndrome (a severe paralytic illness): No ? Denies bone marrow transplant prior 6 months or solid organ transplant prior 3 months: Yes ? Denies a history of fainting after a prior injection or medical procedure? Yes If patient has fainted in the past, the CDC recommends sitting or lying down for 15 minutes after the vaccination. ? VIS sheet provided: Yes ? See Immunization Form in [facility] for details of immunizations administered today. If patient reports dizziness, vision changes or ringing in the ears post vaccination ? please have patient sit or lie down for 15 minutes. Prescriptions ordered this encounter Disp Refills Start End WARFARIN 5 MG TABLET 30 t* 11 10/29/2017 Route: ORAL Sig: Take 1 tablet by mouth daily as directed. Medications Discontinued During This Encounter warfarin (COUMADIN) 5 mg tablet 30 t* 11 09/19/2016 10/29/2017 Sig: TAKE 5 MG BY MOUTH ON THURSDAY AND THURSDAY AND TAKE 2.5 MG BY MOUTH OTHER DAYS DIRECTED Disc: Duplicate Entry Disposition: Return in 6 months (on 04/29/2018). Follow-up and Disposition History Recorded Encounter Status:Closed by ABDIRAHMAN COLE MD on 10/29/17 CNNURSE Observed: 10/23/2017 Status: COMPLETED Source: [place] 3:15 PM [facility] REPOSITORY Nurse Visit (CAWSTR) DANIELLA BETANCOURT ([id number]) 1935 F Date Time Provider Department 10/23/17 3:15 PM NURSE CARD ADMIN [facility] CAWSTR During your visit today, we recorded the following information about you: Leroy Desir MA 10/26/2017 10:43 AM Signed EKG completed and given to Dr Urban for review. Leroy Desir MA Referring Provider: HUE URBAN [[id number]] Allergies As of Date: 10/23/2017 Noted Allergy Reaction AMOXICILLIN 12/02/2004 2 - Rash CATS 01/06/2006 5 - Intolerance Comments: low grade tempeture, fatigue INDOCIN (INDOMETHACIN) 12/02/2004 2 - Rash Date Reviewed: 10/23/2017 Reviewed by: Ana Buck RN - Fully Assessed Visit Diagnoses:Persistent atrial fibrillation (HCC) [I48.1] Nonrheumatic aortic valve stenosis [I35.0] Chronic diastolic CHF (congestive heart failure) (HCC) [I50.32] Order(s):ECG COMPLETE W INTERPRETATION [ECG01] Order #: [id number] Prescriptions as of 10/23/2017 Sig: FELODIPINE ER 5 MG TABLET,EXT* Take 1 tablet by mouth once d* LOSARTAN 100 MG-HYDROCHLOROTH* Take 1 tablet by mouth once d* METOPROLOL TARTRATE 25 MG TAB* TAKE TWO TABLETS BY MOUTH IN * WARFARIN 5 MG TABLET TAKE 5 MG BY MOUTH ON THURSDAY * LATANOPROST 0.005 % EYE DROPS 1 Drop daily at bedtime. CYANOCOBALAMIN (VIT B-12) 500* Take 1 tablet by mouth once d* ASPIRIN 81 MG TABLET once daily. CALCIUM CARB-ERGOCALCIFEROL (* three tablets daily SPECTRAVITE SENIOR TABLET Take one(1) tablet daily. Problem List As Of Date 10/23/2017 Noted Resolved Osteopenia [M85.80] More... Allergy, unspecified not elsewhere classified [* 10/25/2014 Essential hypertension [I10] More... 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 Other and unspecified hyperlipidemia [E78.5] INVALID FOR*06/20/2010 More... Lipoma of unspecified site [D17.9] INVALID FOR*10/25/2014 Atrial fibrillation [I48.91] INVALID FOR* Tinnitus [H93.19] INVALID FOR* Nonrheumatic aortic valve stenosis [I35.0] INVALID FOR* Visit Notes: >> Leroy Desir MA ThuOct 26, 2017 10:43 AM Status: Signed EKG completed and given to Dr Urban for review. Leroy Desir MA Encounter Status:Closed by LEROY DESIR MA on 10/26/17 PROGRESS Observed: 10/23/2017 Status: COMPLETED Source: [place] 11:27 AM [facility] REPOSITORY O ID: [id number] Author: Hue Urban Service: (none) Author Type: Physician Type: Progress Notes Filed: 10/30/2017 11:06 AM Note Text: PERTINENT CARDIAC HISTORY Atrial fib - permanent HTN HL Aortic stenosis - severe ADHERENCE TO GUIDELINES QUIQUE-I or ARB for HF with prior LVEF<40 (NQF 0081) - N/A ASA or Plavix for ASHD (NQF 0067) - met Beta fox for ASHD with prior OK or prior LVEF<40 (NQF 0070) - N/A Beta fox for HF with prior LVEF<40 (NQF 0083) - N/A QUIQUE-I or ARB for ASHD with DM or prior LVEF<40 (NQF 0066) - N/A Statin therapy for ASHD or FHL or DM - N/A BMI documented and plan if >25 (NQF 0421) - lifestyle recommendation form Tobacco use screening and referral (NQF 0028) - lifestyle recommendation form Recommendation for whole food, plant based diet - lifestyle recommendation form CLINICAL IMPRESSION/PLAN: Daniella Betancourt has progression of aortic valve disease. She is largely asymptomatic, but has cut down quite a bit on exercise over the last few years. We discussed options in terms of surgery. She is willing to consider, but is not enthusiastic. I encouraged her to be more active and to report how she is feeling over the next several weeks. For more objective follow-up of her diastolic dysfunction and drug therapy, she will have a BNP, basic profile and lipid profile. I will see her in 8 months, unless we decided to proceed with surgery prior to that. Written and verbal health teaching given to patient, patient verbalizes understanding and agrees with treatment plan. DIAGNOSIS FOR VISIT: Aortic stenosis Atrial fibrillation HISTORY OF PRESENT ILLNESS Daniella Betancourt returns for follow-up of her valvular heart. She has not been as active. She no longer takes walks. She has no steps to take. She is doing little housework. She is moving around the apartment but sierra less energy that she has over the last several years. She denies chest pain. She's had no orthopnea. She has had minimal edema. She has had no syncope, palpitations, TIAs, amaurosis or claudication. ALLERGIES: ALLERGIES Allergen Reactions - Amoxicillin Rash - Cats Intolerance low grade tempeture, fatigue - Indocin [Indomethac* Rash CURRENT OUTPATIENT MEDICATIONS: felodipine ER (PLENDIL) 5 mg 24 hr tablet Take 1 tablet by mouth once daily. losartan-hydrochlorothiazide (HYZAAR) 100-25 mg per tablet Take 1 tablet by mouth once daily. metoprolol tartrate, short acting, (LOPRESSOR) 25 mg tablet TAKE TWO TABLETS BY MOUTH IN THE MORNING AND TAKE ONE TAB BY MOUTH IN THE EVENING warfarin (COUMADIN) 5 mg tablet TAKE 5 MG BY MOUTH ON THURSDAY AND THURSDAY AND TAKE 2.5 MG BY MOUTH OTHER DAYS DIRECTED latanoprost (XALATAN) 0.005 % ophthalmic solution 1 Drop daily at bedtime. Cyanocobalamin 500 mcg lozg Take 1 tablet by mouth once daily. Aspirin 81 mg Tab once daily. calcium carbonate-vitamin D 500-125 mg-unit ORAL Tab three tablets daily SPECTRAVITE SENIOR TAB Take one(1) tablet daily. PHYSICAL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 Conjunctivae and EOM are normal. Pupils are equal, round, and reactive to light. Neck: No JVD present. Carotid bruit is not present. No thyromegaly present. Cardiovascular: S1 normal and S2 normal. An irregularly irregular rhythm present. Murmur heard. Systolic murmur is present with a grade of 3/6 Base. Pulmonary/Chest: Effort normal and breath sounds normal. Abdominal: Soft. She exhibits no mass. There is no tenderness. Musculoskeletal: She exhibits edema. 1-2+ edema. Neurological: She is alert. She has normal strength. No cranial nerve deficit or sensory deficit. Gait abnormal. Assessment and Plan ASSESSMENT/PLAN: 1. Medicare annual wellness visit, subsequent - ICD9: V70.0, ICD10: Z00.00 (primary diagnosis) See other note. 2. Essential hypertension - ICD9: 401.9, ICD10: I10 - good control 3. Primary osteoarthritis of both ankles - ICD9: 715.17, ICD10: M19.071, M19.072 Stable. 4. Atrial fibrillation, unspecified type (HCC) - ICD9: 427.31, ICD10: I48.91 Controlled. 5. Nonrheumatic aortic valve stenosis - ICD9: 424.1, ICD10: I35.0 Monitored. 6. Osteopenia, unspecified location - ICD9: 733.90, ICD10: M85.80 - Reviewed the need for Calcium and Vitamin D supplements and weight bearing exercise as tolerated 7. Tinnitus of both ears - ICD9: 388.30, ICD10: H93.13 Stable. Abdirahman Cole MD Referring Provider: ABDIRAHMAN COLE [[id number]] Allergies As of Date: 04/28/2017 Noted Allergy Reaction AMOXICILLIN 12/02/2004 2 - Rash CATS 01/06/2006 5 - Intolerance Comments: low grade tempeture, fatigue INDOCIN (INDOMETHACIN) 12/02/2004 2 - Rash Date Reviewed: 04/28/2017 Reviewed by: Sherri Gayle LPN - Fully Assessed Reason for Visit: Yearly Exam [187] Primary Visit Diagnosis:Medicare annual wellness visit, subsequent [Z00.00] Other Visit Diagnoses:Essential hypertension [I10] Primary osteoarthritis of both ankles [M19.071, M19.072] Atrial fibrillation, unspecified type (HCC) [I48.91] Nonrheumatic aortic valve stenosis [I35.0] Osteopenia, unspecified location [M85.80] Tinnitus of both ears [H93.13] Prescriptions as of 04/28/2017 Sig: FELODIPINE ER 5 MG TABLET,EXT* Take 1 tablet by mouth once d* LOSARTAN 100 MG-HYDROCHLOROTH* Take 1 tablet by mouth once d* METOPROLOL TARTRATE 25 MG TAB* TAKE TWO TABLETS BY MOUTH IN * WARFARIN 5 MG TABLET TAKE 5 MG BY MOUTH ON THURSDAY * LATANOPROST 0.005 % EYE DROPS 1 Drop daily at bedtime. CYANOCOBALAMIN (VIT B-12) 500* Take 1 tablet by mouth once d* ASPIRIN 81 MG TABLET once daily. CALCIUM CARB-ERGOCALCIFEROL (* three tablets daily SPECTRAVITE SENIOR TABLET Take one(1) tablet daily. Problem List As Of Date 04/28/2017 Noted Resolved Osteopenia [M85.80] More... Allergy, unspecified not elsewhere classified [* 10/25/2014 Essential hypertension [I10] More... 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 Other and unspecified hyperlipidemia [E78.5] INVALID FOR*06/20/2010 More... Lipoma of unspecified site [D17.9] INVALID FOR*10/25/2014 Atrial fibrillation [I48.91] INVALID FOR* Tinnitus [H93.19] INVALID FOR* Nonrheumatic aortic valve stenosis [I35.0] INVALID FOR* Disposition: Return in about 6 months (around 10/29/2017). Follow-up and Disposition History Recorded Encounter Status:Closed by ABDIRAHMAN COLE MD on 04/28/17 CNOV Observed: 04/21/2017 Status: COMPLETED Source: [facility] 11:[facility] AM [facility] OTHER [facility] REPOSITORY Office Visit (AGCARDWST) DANIELLA BETANCOURT ([id number]) 1935 F Date Time Provider Department 04/21/17 11:00 AM HUE URBAN AGCARDWST During your visit today, we recorded the following information about you: Pulse Blood pressure Weight 76/minute 117/76 78.2 kg Hue Urban MD 04/21/2017 5:12 PM Signed PERTINENT CARDIAC HISTORY Atrial fib - permanent HTN HL Aortic stenosis - moderately severe ADHERENCE TO GUIDELINES QUIUQE-I or ARB for HF with prior LVEFANDlt;40 (NQF 0081) - N/A ASA or Plavix for ASHD (NQF 0067) - met Beta fox for ASHD with prior OK or prior LVEFANDlt;40 (NQF 0070) - N/A Beta fox for HF with prior LVEFANDlt;40 (NQF 0083) - N/A QUIQUE-I or ARB for ASHD with DM or prior LVEFANDlt;40 (NQF 0066) - N/A Statin therapy for ASHD or FHL or DM - N/A BMI documented and plan if ANDgt;25 (NQF 0421) - lifestyle recommendation form Tobacco use screening and referral (NQF 0028) - lifestyle recommendation form Recommendation for whole food, plant based diet - lifestyle recommendation form CLINICAL IMPRESSION/PLAN: Daniella Betancourt has moderately severe aortic stenosis. Her exercise tolerance is stable. She is likely nearing the time when she will require surgery. I've asked her to call if she has any worsening of exercise tolerance this spring. We discussed symptoms of chest pain, lightheadedness and fatigue which may also herald the worsening of aortic stenosis. Labs will be checked as scheduled. Her medications will be continued. I will see her in 6 months, at which time we will update her echocardiogram. Written and verbal health teaching given to patient, patient verbalizes understanding and agrees with treatment plan. This note was generated using [employer] voice recognition system, and there may be some incorrect words, spellings, and punctuation that were not noted in checking the note before saving. DIAGNOSIS FOR VISIT: Aortic stenosis Atrial fibrillation HISTORY OF PRESENT ILLNESS Daniella Betancourt returns for follow-up of her valvular heart disease and atrial fibrillation. She reports stable exercise tolerance. She is keeping up with her housework. She denies orthopnea. She's had minimal edema. She denies syncope, palpitations, TIAs, amaurosis and claudication. ALLERGIES: ALLERGIES Allergen Reactions - Amoxicillin Rash - Cats Intolerance low grade tempeture, fatigue - Indocin [Indomethac* Rash CURRENT OUTPATIENT MEDICATIONS: felodipine ER (PLENDIL) 5 mg 24 hr tablet Take 1 tablet by mouth once daily. losartan-hydrochlorothiazide (HYZAAR) 100-25 mg per tablet Take 1 tablet by mouth once daily. metoprolol tartrate, short acting, (LOPRESSOR) 25 mg tablet TAKE TWO TABLETS BY MOUTH IN THE MORNING AND TAKE ONE TAB BY MOUTH IN THE EVENING warfarin (COUMADIN) 5 mg tablet TAKE 5 MG BY MOUTH ON THURSDAY AND THURSDAY AND TAKE 2.5 MG BY MOUTH OTHER DAYS DIRECTED latanoprost (XALATAN) 0.005 % ophthalmic solution 1 Drop daily at bedtime. Cyanocobalamin 500 mcg lozg Take 1 tablet by mouth once daily. Aspirin 81 mg Tab once daily. calcium carbonate-vitamin D 500-125 mg-unit ORAL Tab three tablets daily SPECTRAVITE SENIOR TAB Take one(1) tablet daily. PHYSICAL EXAMINATION: VITAL SIGNS: BP 117/76 Pulse 76 Wt 172 lb 4.8 oz (78.2kg) Chest: Clear to percussion and auscultation. Trachea is midline. Air entry is equal. Cardiac: Regular rhythm. S1 and S2 are normal. PMI is nondisplaced. There is a 3/6 mid peaking murmur of aortic stenosis. Carotids are slightly delayed. JVP is less than 10 cm. Abdomen: Soft and nontender. There are no pulsatile masses or bruits. No liver enlargement. Bowel sounds are active. Extremities: Trace edema. Pulses are intact and symmetrical. Recent echocardiogram was discussed. Labs are pending. Electronically Signed: Hue Urban MD April 21, 2017 10:36 AM CC: MD Hue Boyer MD 04/21/2017 10:37 AM Signed LIFESTYLE CHANGE A healthy lifestyle is the most important component of your overall treatment plan. Please give serious thought to the following areas and commit to making prevocational/rehabilitation counselor changes. EAT A WHOLE FOOD, PLANT BASED DIET The nutrition your body gets is more important than the medicine you take. What matters most is the overall way you eat. We encourage you to minimize the use of animal products (which include dairy and all meats except fatty fish) and use whole, unprocessed plant foods to provide your protein, vitamins and other nutrients. We have a lot of information to share with you on this topic. We also hold Shared Medical Appointments, where you can come visit with Dr. Urban in the company of other patients and spend over an hour talking about the challenges of changing the way you eat. This is not a ANDquot;dietANDquot;. It is a way of life that you will keep with you. EXERCISE REGULARLY It is not important to spend hours in the gym, lifting weights and perspiring heavily. A total of 2-3 hours per week of aerobic (causing you to be moderately short of breath) exercise is sufficient to improve your health. Talk to us before you begin a new exercise program, if you have heart disease or experience shortness of breath or chest pain. REDUCE STRESS Chronic emotional and physical stress leads to disease. Ways of reducing stress include meditation, visualization, prayer, yoga and other forms of relaxation therapy. Consistency is the arciniega. Find a technique that works for you and do it every day. CULTIVATE RELATIONSHIPS Loneliness and isolation have a major negative impact on health. Seek out others who can love, care for and nurture you. Avoid hurtful relationships. MAINTAIN IDEAL BODY WEIGHT The best way to do this is to do all the things above. Our bodies naturally find the right weight if we keep moving and feed ourselves the right food. If your BMI is greater than 25, we strongly recommend a referral to a weight management program. Please speak to us or your family physician about available programs. AVOID NICOTINE IN ALL FORMS This includes all tobacco products, whether chewed, smoked, vaped, or rubbed on the skin. Smoking cessation programs, which can make use of tobacco substitutes, medications to suppress cravings and behavior management, are available. Please contact your family physician about programs in your area. Referring Provider: HUE URBAN [[id number]] Allergies As of Date: 04/21/2017 Noted Allergy Reaction AMOXICILLIN 12/02/2004 2 - Rash CATS 01/06/2006 5 - Intolerance Comments: low grade tempeture, fatigue INDOCIN (INDOMETHACIN) 12/02/2004 2 - Rash Date Reviewed: 04/21/2017 Reviewed by: Mariana (Darron France - Fully Assessed Reason for Visit: Recheck [92] Primary Visit Diagnosis:Nonrheumatic aortic valve stenosis [I35.0] Other Visit Diagnoses:Hypertension, essential [I10] Chronic diastolic CHF (congestive heart failure) ([facility]) [I50.32] Order(s):ECHO [153258] Order #: [id number]: 1 FUTURE NT PRO BNP [SQNTBNP] Order #: [id number] FUTURE Prescriptions as of 04/21/2017 Sig: FELODIPINE ER 5 MG TABLET,EXT* Take 1 tablet by mouth once d* LOSARTAN 100 MG-HYDROCHLOROTH* Take 1 tablet by mouth once d* METOPROLOL TARTRATE 25 MG TAB* TAKE TWO TABLETS BY MOUTH IN * WARFARIN 5 MG TABLET TAKE 5 MG BY MOUTH ON THURSDAY * LATANOPROST 0.005 % EYE DROPS 1 Drop daily at bedtime. CYANOCOBALAMIN (VIT B-12) 500* Take 1 tablet by mouth once d* ASPIRIN 81 MG TABLET once daily. CALCIUM CARB-ERGOCALCIFEROL (* three tablets daily SPECTRAVITE SENIOR TABLET Take one(1) tablet daily. Problem List As Of Date 04/21/2017 Noted Resolved Osteopenia [M85.80] More... Allergy, unspecified not elsewhere classified [* 10/25/2014 Essential hypertension [I10] More... 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 Other and unspecified hyperlipidemia [E78.5] INVALID FOR*06/20/2010 More... Lipoma of unspecified site [D17.9] INVALID FOR*10/25/2014 Atrial fibrillation [I48.91] INVALID FOR* Tinnitus [H93.19] INVALID FOR* Other instructions from your clinician: LIFESTYLE CHANGE A healthy lifestyle is the most important component of your overall treatment plan. Please give serious thought to the following areas and commit to making fdc changes. EAT A WHOLE FOOD, PLANT BASED DIET The nutrition your body gets is more important than the medicine you take. What matters most is the overall way you eat. We encourage you to minimize the use of animal products (which include dairy and all meats except fatty fish) and use whole, unprocessed plant foods to provide your protein, vitamins and other nutrients. We have a lot of information to share with you on this topic. We also hold Shared Medical Appointments, where you can come visit with Dr. Urban in the company of other patients and spend over an hour talking about the challenges of changing the way you eat. This is not a diet. It is a way of life that you will keep with you. EXERCISE REGULARLY It is not important to spend hours in the gym, lifting weights and perspiring heavily. A total of 2-3 hours per week of aerobic (causing you to be moderately short of breath) exercise is sufficient to improve your health. Talk to us before you begin a new exercise program, if you have heart disease or experience shortness of breath or chest pain. REDUCE STRESS Chronic emotional and physical stress leads to disease. Ways of reducing stress include meditation, visualization, prayer, yoga and other forms of relaxation therapy. Consistency is the arciniega. Find a technique that works for you and do it every day. CULTIVATE RELATIONSHIPS Loneliness and isolation have a major negative impact on health. Seek out others who can love, care for and nurture you. Avoid hurtful relationships. MAINTAIN IDEAL BODY WEIGHT The best way to do this is to do all the things above. Our bodies naturally find the right weight if we keep moving and feed ourselves the right food. If your BMI is greater than 25, we strongly recommend a referral to a weight management program. Please speak to us or your family physician about available programs. AVOID NICOTINE IN ALL FORMS This includes all tobacco products, whether chewed, smoked, vaped, or rubbed on the skin. Smoking cessation programs, which can make use of tobacco substitutes, medications to suppress cravings and behavior management, are available. Please contact your family physician about programs in your area. Encounter Status:Closed by HUE URBAN MD on 04/21/17 PROGRESS Observed: 04/21/2017 Status: COMPLETED Source: [facility] 10:36 AM [facility] OTHER [facility]US REPOSITORY O ID: [id number] Author: Hue Urban Service: (none) Author Type: Physician Type: Progress Notes Filed: 04/21/2017 5:12 PM Note Text: PERTINENT CARDIAC HISTORY Atrial fib - permanent HTN HL Aortic stenosis - moderately severe ADHERENCE TO GUIDELINES QUIQUE-I or ARB for HF with prior LVEF<40 (NQF 0081) - N/A ASA or Plavix for ASHD (NQF 0067) - met Beta fox for ASHD with prior OK or prior LVEF<40 (NQF 0070) - N/A Beta fox for HF with prior LVEF<40 (NQF 0083) - N/A QUIQUE-I or ARB for ASHD with DM or prior LVEF<40 (NQF 0066) - N/A Statin therapy for ASHD or FHL or DM - N/A BMI documented and plan if >25 (NQF 0421) - lifestyle recommendation form Tobacco use screening and referral (NQF 0028) - lifestyle recommendation form Recommendation for whole food, plant based diet - lifestyle recommendation form CLINICAL IMPRESSION/PLAN: Daniella Betancourt has moderately severe aortic stenosis. Her exercise tolerance is stable. She is likely nearing the time when she will require surgery. I've asked her to call if she has any worsening of exercise tolerance this spring. We discussed symptoms of chest pain, lightheadedness and fatigue which may also herald the worsening of aortic stenosis. Labs will be checked as scheduled. Her medications will be continued. I will see her in 6 months, at which time we will update her echocardiogram. Written and verbal health teaching given to patient, patient verbalizes understanding and agrees with treatment plan. This note was generated using [employer] voice recognition system, and there may be some incorrect words, spellings, and punctuation that were not noted in checking the note before saving. DIAGNOSIS FOR VISIT: Aortic stenosis Atrial fibrillation HISTORY OF PRESENT ILLNESS Daniella Betancourt returns for follow-up of her valvular heart disease and atrial fibrillation. She reports stable exercise tolerance. She is keeping up with her housework. She denies orthopnea. She's had minimal edema. She denies syncope, palpitations, TIAs, amaurosis and claudication. ALLERGIES: ALLERGIES Allergen Reactions - Amoxicillin Rash - Cats Intolerance low grade tempeture, fatigue - Indocin [Indomethac* Rash CURRENT OUTPATIENT MEDICATIONS: felodipine ER (PLENDIL) 5 mg 24 hr tablet Take 1 tablet by mouth once daily. losartan-hydrochlorothiazide (HYZAAR) 100-25 mg per tablet Take 1 tablet by mouth once daily. metoprolol tartrate, short acting, (LOPRESSOR) 25 mg tablet TAKE TWO TABLETS BY MOUTH IN THE MORNING AND TAKE ONE TAB BY MOUTH IN THE EVENING warfarin (COUMADIN) 5 mg tablet TAKE 5 MG BY MOUTH ON THURSDAY AND THURSDAY AND TAKE 2.5 MG BY MOUTH OTHER DAYS DIRECTED latanoprost (XALATAN) 0.005 % ophthalmic solution 1 Drop daily at bedtime. Cyanocobalamin 500 mcg lozg Take 1 tablet by mouth once daily. Aspirin 81 mg Tab once daily. calcium carbonate-vitamin D 500-125 mg-unit ORAL Tab three tablets daily SPECTRAVITE SENIOR TAB Take one(1) tablet daily. PHYSICAL EXAMINATION: VITAL SIGNS: BP 117/76 Pulse 76 Wt 172 lb 4.8 oz (78.2kg) Chest: Clear to percussion and auscultation. Trachea is midline. Air entry is equal. Cardiac: Regular rhythm. S1 and S2 are normal. PMI is nondisplaced. There is a 3/6 mid peaking murmur of aortic stenosis. Carotids are slightly delayed. JVP is less than 10 cm. Abdomen: Soft and nontender. There are no pulsatile masses or bruits. No liver enlargement. Bowel sounds are active. Extremities: Trace edema. Pulses are intact and symmetrical. Recent echocardiogram was discussed. Labs are pending. Electronically Signed: Hue Urban MD April 21, 2017 10:36 AM CC: Abdirahman Cole MD NT PRO BNP Collected: 04/21/2017 Status: F Source: [facility] 8:27 AM [facility] REPOSITORY TYPE CODE TESTS RESULT OUT OF REFERENCE UNITS RANGE LAB PBNP <450 pg/mL High PRO B Natr 1307 Peptide Performed By: #### NTBNP #### [facility] [address] [place], [place] [address] BASIC METABOLIC PANL Collected: 04/21/2017 Status: F Source: [facility] 8:27 AM [facility] REPOSITORY TYPE CODE TESTS RESULT OUT OF REFERENCE UNITS RANGE LAB GLU 74-99 mg/dL Glucose 78 Result Comment: The [place] Diabetes Association (ADA) provides guidance for cutoff values for fasting glucose and random glucose. The ADA defines fasting as no caloric intake for at least 8 hours. Fas ting plasma glucose results between 100 to 125 mg/dL indicate increased risk for diabetes (prediabetes). Fasting plasma glucose results greater than or equal to 126 mg/dL meet the criteria for diagnosis of diabetes. In the absence of unequivocal hyperglycemia, results should be confirmed by repeat testing. In a patient with classic symptoms of hyperglycemia or hyperglycemic crisis, random plasma glucose results greater than or equal to 200 mg/dL meet the criteria for diagnosis of diabetes. Reference: Standards of Medical Care in Diabetes 2016, [place] Diabetes Association. Diabetes Care. 2016.39(Suppl 1). LAB BUN 7-21 mg/dL BUN 13 LAB CRET 0.58-0.96 mg/dL Creatinine 0.74 LAB NA 136-144 mmol/L Sodium 139 LAB K 3.7-5.1 mmol/L Potassium 3.9 LAB CL 97-105 mmol/L Chloride 98 LAB CO2 22-30 mmol/L CO2 29 LAB AGAP 9-18 mmol/L Anion Gap 12 LAB CA 8.5-10.2 mg/dL Calcium, Total 9.5 LAB GFRAA eGFR- Amer. >60 LAB GFRNAA . eGFR-All Other Races >60 Result Comment: eGFR (Estimated GFR) Units of measure: mL/min/1.73 meters squared eGFR is derived from the reexpressed MDRD Study equation using the following parameters: serum creatinine, age, gender and race. The creatinine assay has been calibrated to be traceable to IDMS. An eGFR <60 mL/min/1.73m2 for >3 months is consistent with chronic kidney disease. Refer to KDOQI guidelines for clinical interpretation. In patients with unstable renal function, e.g. those with acute kidney injury, the eGFR may not accurately reflect actual GFR. Performed By: #### BMP, LIPB #### [facility] [address] [place] [address] LIPID PANEL, BASIC Collected: 04/21/2017 Status: F Source: [facility] 8:27 AM [facility] REPOSITORY TYPE CODE TESTS RESULT OUT OF REFERENCE UNITS RANGE LAB CHOL <200 mg/dL Cholesterol High 200 Result Comment: <200 mg/dL, Desirable 200-239 mg/dL, Borderline high >239 mg/dL, High LAB TRIGLY <150 mg/dL Triglyceride 148 Result Comment: <150 mg/dL, Normal 150-199 mg/dL, Borderline high 200-499 mg/dL, High >499 mg/dL, Very high LAB HDL >39 mg/dL HDL-Cholesterol 54 Result Comment: 40-59 mg/dL, Acceptable >59 mg/dL, High: Negative risk factor for coronary heart disease <40 mg/dL, Low: Positive risk factor for coronary heart disease LAB LDL <100 mg/dL LDL-Cholesterol High 116 Result Comment: <100 mg/dL, Optimal 100-129 mg/dL, Near optimal/above optimal 130-159 mg/dL, Borderline high 160-189 mg/dL, High >189 mg/dL, Very high Secondary prevention optimal LDL Cholesterol levels are recommended to be < 70 mg/dL LAB NONHDL <130 mg/dL Non HDL High Cholesterol 146 Result Comment: <130 mg/dL, Optimal 130-159 mg/dL, Near optimal/above optimal 160-189 mg/dL, Borderline high 190-219 mg/dL, High >219 mg/dL, Very high Secondary prevention optimal non HDL Cholesterol levels are recommended to be < 100 mg/dL LAB FT hrs Fasting Time 12 LAB VLDL <30 mg/dL High VLDL Cholesterol 30 LAB TCHDL <5.10 TC:HDL Ratio 3.70 LAB LDLHDL <2.54 LDL:HDL Ratio 2.15 Result Comment: Reference: 1. National Cholesterol Education Program ATP III Guideline At-A-Glance Quick Desk Reference: National Heart, Lung, and Blood [place]. National Institutes of Health. 2001: NIH Publication No. 01-3305. 2. An International Atherosclerosis Society position paper: global recommendations for the management of dyslipidemia: executive summary, Atherosclerosis. 2014: 232(2):410-413. Performed By: #### BMP, LIPB #### [facility] [address] [address] PROGRESS Observed: 04/16/2017 Status: COMPLETED Source: [place] 3:23 PM [facility] REPOSIT[facility] HNO ID: [id number] Author: Abdirahman Cole Service: (none) Author Type: Physician Type: Progress Notes Filed: 04/16/2017 3:23 PM Note Text: OK. PROGRESS Observed: 04/16/2017 Status: COMPLETED Source: [place] 1:12 PM [facility] REPOS[facility] HNO ID: [id number] Author: Marlene Ruelas RN Service: (none) Author Type: (none) Type: Progress Notes Filed: 04/16/2017 1:17 PM Note Text: Patient had INR completed at [facility] Patient's INR is 2.3 Patient is currently taking 5mg MonANDFri and 2.5mg other days Patient's last dose change was 01/28/17 due to low INR at 1.8 Patient has had no medication and no change in diet. Advised patient to continue on same dose and they would only be contacted with different instructions after provider review. Written instructions were given to patient and patient verbalized understanding. Presently, patient has been scheduled for 05/14/17 for INR follow up. PROGRESS Observed: 03/11/2017 Status: COMPLETED Source: [place] 1:34 PM [facility] REPOSITORY HNO ID: [id number] Author: Abdirahman Cole Service: (none) Author Type: Physician Type: Progress Notes Filed: 03/11/2017 1:34 PM Note Text: Okay. PROGRESS Observed: 03/11/2017 Status: COMPLETED Source: [place] 11:18 AM [facility] REPOS[facility]ORY HNO ID: [id number] Author: Olive Everett RN Service: (none) Author Type: (none) Type: Progress Notes Filed: 03/11/2017 11:19 AM Note Text: patient had inr completed at [facility] patients inr is 2.2 (patients inr range is 2.0-3.0) patient is currently taking 5mg Mon,Fri and 2.5mg all other days patients last dose change 2014 patient has had no changes in medication and no change in diet Advised patient to continue on the same dose(s) and that they would only be contacted regarding dosage and follow up instructions after review with provider, if a change is needed. Written instructions given and patient verbalized understanding. Presently scheduled in 5 weeks (04/16/17 - due to spouse having a procedure in 4 weeks) for follow up INR. HOSP Observed: 03/11/2017 Status: COMPLETED Source: [place] 11:00 AM [facility] REPOSIT[facility] Anticoagulation Visit (COUMWS) DANIELLA BETANCOURT ([id number]) 1935 F IPA Date Time Provider Department 03/11/17 11:00 AM [facility] COUMWS During your visit today, we recorded the following information about you: Olive Everett RN 03/11/2017 11:19 AM Signed patient had inr completed at [facility] patients inr is 2.2 (patients inr range is 2.0-3.0) patient is currently taking 5mg Mon,Thu and 2.5mg all other days patients last dose change 2014 patient has had no changes in medication and no change in diet Advised patient to continue on the same dose(s) and that they would only be contacted regarding dosage and follow up instructions after review with provider, if a change is needed. Written instructions given and patient verbalized understanding. Presently scheduled in 5 weeks (04/16/17 - due to spouse having a procedure in 4 weeks) for follow up INR. Abdirahman Cole MD 03/11/2017 1:34 PM Signed Okay. Referring Provider: ABDIRAHMAN COLE [[id number]] Allergies As of Date: 03/11/2017 Noted Allergy Reaction AMOXICILLIN 12/02/2004 2 - Rash CATS 01/06/2006 5 - Intolerance Comments: low grade tempeture, fatigue INDOCIN (INDOMETHACIN) 12/02/2004 2 - Rash Date Reviewed: 03/11/2017 Reviewed by: Olive Everett RN - Fully Assessed Reason for Visit: Anticoagulation [8] Primary Visit Diagnosis:Atrial fibrillation, unspecified type (HCC) [I48.91] Prescriptions as of 03/11/2017 Sig: LOSARTAN 100 MG-HYDROCHLOROTH* Take 1 tablet by mouth once d* FELODIPINE ER 5 MG TABLET,EXT* Take 1 tablet by mouth once d* METOPROLOL TARTRATE 25 MG TAB* TAKE TWO TABLETS BY MOUTH IN * WARFARIN 5 MG TABLET TAKE 5 MG BY MOUTH ON THURSDAY * LATANOPROST 0.005 % EYE DROPS 1 Drop daily at bedtime. CYANOCOBALAMIN (VIT B-12) 500* Take 1 tablet by mouth once d* ASPIRIN 81 MG TABLET once daily. CALCIUM CARB-ERGOCALCIFEROL (* three tablets daily SPECTRAVITE SENIOR TABLET Take one(1) tablet daily. Problem List As Of Date 03/11/2017 Noted Resolved Osteopenia [M85.80] More... Allergy, unspecified not elsewhere classified [* 10/25/2014 Essential hypertension [I10] More... 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 Other and unspecified hyperlipidemia [E78.5] INVALID FOR*06/20/2010 More... Lipoma of unspecified site [D17.9] INVALID FOR*10/25/2014 Atrial fibrillation [I48.91] INVALID FOR* Tinnitus [H93.19] INVALID FOR* Follow-up and Disposition History Recorded Encounter Status:Closed by ABDIRAHMAN COLE MD on 03/11/17 ALLERGIES ALLERGIES DATE TYPE / NAME / CODE REACTION SEVERITY SOURCE CODE 03/02/2018 Drug indomethacin/F0060 Unknown Unknown [place] Allergy/41 80627(RXNORM) [facility] [id number]([facility]) Repository 03/02/2018 Drug amoxicillin/Z85287 Unknown Unknown [place] Allergy/41 3675(RXNORM) [facility] [id number]([facility]) Repository 01/06/2006 Animal/420 CATS INTOLERANCE [facility] [id number]([facility]) Repository 12/02/2004 DRUG AMOXICILLIN RASH [address] [id number]([facility] OMED CT) 12/02/2004 DRUG INDOMETHACIN RASH [address] [id number]([facility] CT) NG/[id number] AMOXICILLIN [facility] 06(99[facility]) Repository NG/1844425 CATS [facility] 06(99[facility]) Repository NG/1879033 INDOMETHACIN [facility] 06(99[facility]) Repository ENCOUNTERS ENCOUNTERS ADMIT/DISCHARGE ACCOUNT NUMBER ADMITTING ENCOUNTER LOCATION SOURCE CLASS 03/02/2018/03/02/19 [id number] Ambulatory BMSBuilding: [place] [address] BMS.WSA [facility] Repository 02/25/2018 [id number] Ambulatory BMSBuilding: [place] BMS.CF.[facility] Repository 02/25/2018 [id number] Ambulatory [place] [facility] ding:WC Repository 02/16/2018/02/16/19 [id number] Ambulatory BMSBuilding: [place] 19 BMS.[facility] Repository 02/16/2018/02/17/19 [id number] Ambulatory [address] Repository 02/11/2018 [id number] Ambulatory BMSBuilding: [place] BMS.CF.[facility] Repository 02/01/2018/02/09/20 [id number] Ambulatory [place] [address] ding:[facility] Repository 01/26/2018/01/27/20 [id number] Ambulatory BMSBuilding: [place] 18 BMS.[facility] Repository 01/26/2018/01/27/20 [id number] Ambulatory [address] Repository 01/22/2018 [id number] Ambulatory BMSBuilding: [place] BMS.CF.[facility] Repository 01/12/2018/01/13/20 [id number] Ambulatory BMSBuilding: [place] 18 BMS.[facility] Repository 01/12/2018/01/14/20 [id number] Ambulatory [address] Repository 01/07/2018 [id number] Ambulatory BMSBuilding: [place] BMS.CF.[facility] Repository 01/07/2018/01/09/20 [id number] Ambulatory [place] [address] ding:WC Repository 12/28/2017/12/30/19 [id number] Ambulatory [address] Repository 12/28/2017/12/29/19 [id number] Ambulatory BMSBuilding: [place] 18 BMS.[facility] Repository 12/24/2017 [id number] Ambulatory BMSBuilding: [place] BMS.CF.[facility] Repository 12/22/2017/12/23/19 [id number] Ambulatory BMSBuilding: [place] 18 BMS.[facility] Repository 12/21/2017/12/23/19 [id number] Ambulatory [address] Repository 12/17/2017/12/19/19 [id number] Ambulatory [address] Repository 12/15/2017/12/16/19 [id number] Ambulatory BMSBuilding: [place] 18 BMS.[facility] Repository 12/14/2017/12/15/19 [id number] Ambulatory BMSBuilding: [place] 18 BMS.[facility] Repository 12/11/2017/12/12/19 [id number] Ambulatory BMSBuilding: [place] 18 BMS.[facility] Repository 12/11/2017/12/15/19 [id number] Ambulatory [address] Repository 12/10/2017 [id number] Ambulatory BMSBuilding: [place] BMS.CF.[facility] Repository 12/03/2017 [id number] Ambulatory BMSBuilding: [place] BMS.CF.[facility] Repository 12/03/2017/12/04/19 [id number] Emergency [address] ding:ED Repository 12/03/2017/12/10/19 [id number] Ambulatory [address] ding: Repository 11/24/2017/11/26/19 [id number] Ambulatory [address] Repository 11/23/2017 [id number] Ambulatory BMSBuilding: [place] BMS.CF.[facility] Repository 11/17/2017 [id number] Ambulatory [facility] ding:US Repository 11/16/2017/11/17/19 [id number] Ambulatory [address] Repository 11/16/2017/11/17/19 [id number] Ambulatory [address] Repository 11/16/2017/11/18/19 [id number] Ambulatory [address] Repository 11/09/2017/11/11/19 [id number] Emergency [place] ding:ED Repository 10/29/2017/10/30/19 [id number] Ambulatory [address] Repository 10/29/2017/10/31/19 [id number] Ambulatory [address] Repository 10/29/2017/10/31/19 [id number] Ambulatory [address] Repository 10/23/2017/10/24/19 [id number] Ambulatory [facility] [place] Repository 10/23/2017/10/27/19 [id number] Ambulatory [facility] [place] Repository 10/23/2017/10/24/19 [id number] Ambulatory [facility] [place] Repository 10/23/2017 [id number] Ambulatory [facility] MEDICAL Repository CENTERBuildi ng:CAGWS 09/22/2017/09/24/19 [id number] Ambulatory [facility] [place] Repository 08/25/2017/08/27/19 [id number] Ambulatory [facility] [place] Repository 07/29/2017/07/31/19 [id number] Ambulatory [facility] [place] Repository 07/01/2017/07/03/19 [id number] Ambulatory [facility] [place] Repository 06/04/2017/06/06/19 [id number] Ambulatory [facility] [place] Repository 05/28/2017/05/30/19 [id number] Ambulatory [facility] [place] Repository 05/14/2017/05/16/19 [id number] Ambulatory [facility] [place] Repository 04/28/2017/04/30/19 [id number] Ambulatory [facility] [place] Repository 04/21/2017 [id number] Ambulatory [facility] [place] Repository 04/21/2017/04/22/19 [id number] Ambulatory [facility] [place] Repository 04/21/2017/04/22/19 [id number] Ambulatory [address] MEDICAL Repository [place] 04/21/2017/04/22/19 [id number] Ambulatory [facility] [place] Repository 04/16/2017/04/18/19 [id number] Ambulatory [facility] [place] Repository 03/11/2017/03/11/19 [id number] Ambulatory [facility] [place] Repository PAYERS PAYERS ENCOUNTER GUARANTOR PAYER SUBSCRIBER SOURCE 03/02/2018 BERT [id number] Primary GENEVA A [place] E SASSAFRAS Insurance:MEDICARE HORSTDOB: [place] PART A [facility] [id number] Hospital [address]Wcd: (330) Number: Repository [phone] () [id number] Date:2018-02-16 03/02/2018 Secondary GENEVA A [place] Insurance:[place] HORSTDOB: [facility] [id number] Number: Repository [id number] Date:7103-20-06NX [address] [place] [place] [address]IU: 03/02/2018 Tertiary NOT GIVENUNK [place] Insurance:SELF PAY [facility] Number: Effective Repository Date:2018-03-02 02/25/2018 BERT Dolores [id number] Primary NOT GIVENUNK [place] E SASSAFRAS Insurance:SELF PAY [facility] [address]Atg: (330) Number: Effective Repository [phone] () Date:2018-02-25 02/25/2018 BERT Dolores [id number] Primary NOT GIVENUNK [place] E SASSAFRAS Insurance:SELF PAY [facility] [address]Hvp: (330) Number: Effective Repository [phone] () Date:2018-02-09 02/16/2018 GENEVA A Primary GENEVA A [place] [id number] Insurance:MEDICARE HORSTDOB: [facility] SASSAFRAS PART A [facility] [id number]: Repository [address]Izu: 330 [id number] [phone] () Date:2018-01-26 02/16/2018 Secondary GENEVA A [place] Insurance:[place] HORSTDOB: [facility] [id number] Number: Repository [id number] Date:7630-29-20AE [address] [place] [address]EX: 02/16/2018 Tertiary NOT GIVENUNK [place] Insurance:SELF PAY [facility] Number: Effective Repository Date:2018-02-15 02/11/2018 BERT Dolores [id number] Primary NOT GIVENUNK [place] E SASSAFRAS Insurance:SELF PAY [facility] [address]Tff: (330) Number: Effective Repository [phone] () Date:2018-02-11 02/01/2018 BERT GALLEGOST415 Primary GENEVA A [place] E SASSAFRAS Insurance:MEDICARE HORSTDOB: [place] PART A [facility] [id number] Hospital [address]Ieb: (330) Number: Repository [phone] () [id number] Date:2017-11-20 02/01/2018 Secondary GENEVA A [place] Insurance:[place] HORSTDOB: [facility] [id number] Number: Repository [id number] Date:7988-95-24WI [address] [address]DI: 02/01/2018 Tertiary NOT GIVENUNK [place] Insurance:SELF PAY [facility] Number: Effective Repository Date:2018-01-09 01/26/2018 BERT GALLEGOST415 Primary GENEVA A [place] E SASSAFRAS Insurance:MEDICARE HORSTDOB: [place] PART A [facility] [id number] [address]Tel: (330) Number: Repository [phone] () [id number] Date:2018-01-12 01/26/2018 Secondary GENEVA A [place] Insurance:[place] HORSTDOB: [facility] [id number] Indian Medical Centericy Number: Repository [id number] Date:0117-89-76UG [address] [address]CF: 01/26/2018 Tertiary NOT GIVENUNK [place] Insurance:SELF PAY [facility] Number: Effective Repository Date:2018-01-26 01/22/2018 BERT VORA5 Primary GENEVA A [place] E SASSAFRAS Insurance:MEDICARE HORSTDOB: [place] PART A [facility] [id number] Hospital [address]Cnw: (330) Number: Repository [phone] () [id number] Date:2017-11-20 01/22/2018 Secondary GENEVA A [place] Insurance:[place] HORSTDOB: [facility] [id number] Hospital LIFEPolicy Number: Repository [id number] Date:0235-14-05XF [address] [address]OS: 01/22/2018 Tertiary NOT GIVENUNK [place] Insurance:SELF PAY [facility] Number: Effective Repository Date:2018-01-22 01/12/2018 GENEVA A Primary GENEVA A [place] [id number] Insurance:MEDICARE HORSTDOB: Community SASSAFRAS PART A [facility] [id number] Number: Repository [address]Jht: 330 [id number] [phone] () Date:2017-12-28 01/12/2018 Secondary GENEVA A [place] Insurance:[place] HORSTDOB: [facility] [id number] Defiance Indian HospitalPolicy Number: Repository [id number] Date:3359-22-67DZ [address] [address]KP: 01/12/2018 Tertiary NOT GIVENUNK [place] Insurance:SELF PAY [facility] Number: Effective Repository Date:2018-01-11 01/07/2018 BERT VORA5 Primary GENEVA A [place] E SASSAFRAS Insurance:MEDICARE HORSTDOB: [place] PART A [facility] [id number] Hospital [address]Xtb: (330) Number: Repository [phone] () [id number] Date:2017-11-20 01/07/2018 Secondary GENEVA A [place] Insurance:[place] HORSTDOB: [facility] [id number] Defiance Indian HospitalPolicy Number: Repository [id number] Date:8658-41-78OU [address] [address]VS: 01/07/2018 Tertiary NOT GIVENUNK [place] Insurance:SELF PAY [facility] Hospital Number: Effective Repository Date:2018-01-07 01/07/2018 BERT VORA5 Primary GENEVA A [place] E SASSAFRAS Insurance:MEDICARE HORSTDOB: [place] PART [place] [facility] [id number] Hospital [address]Tjx: (330) Number: Repository [phone] () [id number] Date:2017-11-20 01/07/2018 Secondary GENEVA A [place] Insurance:[place] HORSTDOB: [facility] [id number] Hospital LIFEPolicy Number: Repository [id number] Date:9783-07-31RG [address] [place] [address]TG: 01/07/2018 Tertiary NOT GIVENUNK [place] Insurance:SELF PAY [facility] Hospital Number: Effective Repository Date:2017-12-10 12/28/2017 BERT Dolores [id number] Primary GENEVA A [place] E SASSAFRAS Insurance:MEDICARE HORSTDOB: [place] PART A [facility] [id number] Hospital [address]Zyy: (330) Number: Repository [phone] () [id number] Date:2017-12-22 12/28/2017 Secondary GENEVA A [place] Insurance:[place] HORSTDOB: [facility] [id number] Hospital LIFEPolicy Number: Repository [id number] Date:0903-96-67HU [place] [id number]: 12/28/2017 Tertiary NOT GIVENUNK [place] Insurance:SELF PAY [facility] Hospital Number: Effective Repository Date:2017-12-28 12/24/2017 BERT Bernal [id number] Primary GENEVA A [place] E SASSAFRAS Insurance:MEDICARE HORSTDOB: [place] PART A [facility] [id number] Hospital [address]Eax: (330) Number: Repository [phone] () [id number] Date:2017-11-20 12/24/2017 Secondary GENEVA A [place] Insurance:[place] HORSTDOB: [facility] [id number] Hospital LIFEPolicy Number: Repository [id number] Date:8404-78-27VI [address] [place] [address]AG: 12/24/2017 Tertiary NOT GIVENUNK [place] Insurance:SELF PAY [facility] Hospital Number: Effective Repository Date:2017-12-24 12/22/2017 BERT GALLEGOST415 Primary GENEVA A [place] E SASSAFRAS Insurance:MEDICARE HORSTDOB: [place] PART A [facility] [id number] Hospital [address]Omj: (330) Number: Repository [phone] () [id number] Date:2017-12-15 12/22/2017 Secondary GENEVA A [place] Insurance:[place] HORSTDOB: [facility] [id number] Indian Medical Centericy Number: Repository [id number] Date:2109-84-90YF [address] [address]KO: 12/22/2017 Tertiary NOT GIVENUNK [place] Insurance:SELF PAY [facility] Number: Effective Repository Date:2017-12-22 12/15/2017 BERT GALLEGOST415 Primary GENEVA A [place] E SASSAFRAS Insurance:MEDICARE HORSTDOB: [place] PART [place] [facility] [id number] Hospital [address]14[address]Ikg: (330) Number: Repository [phone] () [id number] Date:2017-12-14 12/15/2017 Secondary GENEVA A [place] Insurance:[place] HORSTDOB: [facility] [id number] Indian Medical Centericy Number: Repository [id number] Date:2209-76-05JP [address] [place] [address]JX: 12/15/2017 Tertiary NOT GIVENUNK [place] Insurance:SELF PAY [facility] Number: Effective Repository Date:2017-12-15 12/14/2017 BERT GALLEGOST415 Primary GENEVA A [place] E SASSAFRAS Insurance:MEDICARE HORSTDOB: [place] PART A [facility] [id number] Hospital [address]Fpa: (330) Number: Repository [phone] () [id number] Date:2017-12-11 12/14/2017 Secondary GENEVA A [place] Insurance:[place] HORSTDOB: [facility] [id number] Indian Medical Centericy Number: Repository [id number] Date:7977-10-79YT [address] [address]NS: 12/14/2017 Tertiary NOT GIVENUNK [place] Insurance:SELF PAY [facility] Number: Effective Repository Date:2017-12-14 12/11/2017 BERT GALLEGOST415 Primary GENEVA A [place] E SASSAFRAS Insurance:MEDICARE HORSTDOB: [place] [facility] [id number] Hospital 114[address]Key: (330) Number: Repository [phone] () [id number] Date:2017-12-04 12/11/2017 Secondary GENEVA A [place] Insurance:[place] HORSTDOB: [address]03-14[facility] Centericy Number: Repository [id number] Date:3596-40-68UA [address] [address]WD: 12/11/2017 Tertiary NOT GIVENUNK [place] Insurance:SELF PAY [facility] Number: Effective Repository Date:2017-12-04 12/10/2017 BERT GALLEGOST415 Primary GENEV[place] A [place] E SASSAFR[place] Insurance:MEDICARE HORSTDOB: [place] [facility] [id number] Hospital [address]Xzu: (330) Number: Repository [phone] () [id number] Date:2017-11-20 12/10/2017 Secondary GENEVA A [place] Insurance:[place] HORSTDOB: [address]03-14[facility] Centericy Number: Repository [id number] Date:5846-41-27DD [address] [place] [address]AK: 12/10/2017 Tertiary NOT GIVENUNK [place] Insurance:SELF PAY [facility] Hospital Number: Effective Repository Date:2017-12-10 12/03/2017 BERT VORA5 Primary GENEVA A [place] E SASSAFRAS Insurance:MEDICARE HORSTDOB: [place] [facility] [id number] Hospital [address]Bhl: (330) Number: Repository [phone] () [id number] Date:2017-11-20 12/03/2017 Secondary GENEVA A [place] Insurance:[place] HORSTDOB: [facility] [id number] Hospital LIFEPolicy Number: Repository [id number] Date:6795-54-47ON [address] [address]YD: 12/03/2017 Tertiary NOT GIVENUNK [place] Insurance:SELF PAY [facility] Hospital Number: Effective Repository Date:2017-12-03 12/03/2017 BERT GALLEGOST415 Primary GENEVA A [place] E SASSAFRAS Insurance:MEDICARE HORSTDOB: [place] [facility] [id number] Hospital [address]Mmb: (330) Number: Repository [phone] () [id number] Date:2017-12-03 12/03/2017 Secondary GENEVA A [place] Insurance:[place] HORSTDOB: [facility] [id number] Hospital LIFEPolicy Number: Repository [id number] Date:7610-90-38YY [address] [address]PB: 12/03/2017 Tertiary NOT GIVENUNK [place] Insurance:SELF PAY [facility] Hospital Number: Effective Repository Date:2017-12-03 12/03/2017 BERT VORA5 Primary GENEVA A [place]FR[place] Insurance:MEDICARE HORSTDOB: [place] [facility] [id number] 38468Fdh: [phone]) Number: Repository [phone] () [id number] Date:2017-11-20 12/03/2017 Secondary GENEVA A Rashi Insurance[place] HORSTDOB: [facility] [id number] Hospital LIFEPolicy Number: Repository [id number] Date:[id number] [address] [address]RJ: 12/03/2017 Tertiary NOT GIVENUNK Rashi Insurance:SELF PAY [facility] Number: Effective Repository Date:2017-11-20 11/23/2017 BERT [id number] Primary GENEVA A [place] E SASSAFRAS Insurance:MEDICARE HORSTDOB: [place] PART A [facility] [id number] Hospital [address]Bqh: [phone]) Number: Repository [phone] [id number] Date:2017-11-20 11/23/2017 Secondary GENEVA A Rashi Insurance:[place] HORSTDOB: [id number] [id number] Date:1095-11-42OQ [address] [address]DZ: 11/23/2017 Tertiary NOT GIVENUNK Rashi Insurance:SELF PAY [facility] Number: Effective Repository Date:2017-11-23 11/17/2017 BERT [id number] Primary GENEVA A Rashi E SASSAFRAS Insurance:MEDICARE HORSTDOB: [place] PART A [facility] [id number] Hospital [address]Xnb: [phone]) Number: Repository [phone] () [id number] Date:2017-11-17 11/17/2017 Secondary GENEVA A [place] Insurance:[place] HORSTDOB: [facility] [id number] Hospital LIFEPolicy Number: Repository [id number] Date:[id number] [address]EW: 11/17/2017 Tertiary NOT GIVENUNK [place] Insurance:SELF PAY [facility] Number: Effective Repository Date:2017-11-17 11/09/2017 BERT E [id number] Primary GENEVA A Rashi E SASSAFRAS Insurance:MEDICARE HORSTDOB: [place] PART A BPolicy [id number] [facility] [address]Hoi: [phone]) Number: Repository [phone] () [id number] Date:2017-11-09 11/09/2017 Secondary GENEVA A Rashi [facility]: [facility] [id number] [facility] LIFEPolicy Number: Repository [id number] Date:[id number] [address]VJ: 11/09/2017 Tertiary NOT GIVENUNK [place] Insurance:SELF PAY [facility] Number: Effective Repository Date:2017-11-09 10/23/2017 GENEVA A Primary GENEVA A [place] [facility] HORSTDOB: Insurance:MEDICARE A HORSTDOB: [facility] E AND BPolicy Number: [id number] Repository SASSAFRASS [id number] [place] Date: [address]Hcy: () 10/23/2017 Secondary GENEVA A [place] Insurance:[place] HORSTDOB: Health System LIFEPolicy Number: [id number] Repository [id number] Date: 04/21/2017 GENEVA A Primary GENEVA A [place] [facility] HORSTDOB: Insurance:MEDICARE A HORSTDOB: Health System E AND BPolicy Number: [id number] Repository SASSAFRASS [id number] [place], [place] Date: [address]Szh: () 04/21/2017 Secondary GENEVA A [place] [facility] Insurance:[place] HORSTDOB: Health System LIFEPolicy Number: [id number] Repository [id number] Date:
== END 2018-02-08 23:59 ==
LOC: CVS 10:00
PROVIDERS: Family Provider Internal Medicine; PCP Internal Medicine; Visit Provider Nurse Practitioner Family
DX: S80.12XA Contusion of left lower leg, initial encounter (principal); W19.XXXA Unspecified fall, initial encounter; R60.0 Localized edema; R09.89 Other specified symptoms and signs involving the circulatory and respiratory systems
CPT/HCPCS: 11042

== ENCOUNTER 2018-03-11 13:00 | Outpatient (RCR) | payer MEDICARE, OTHER, SELFPAY ==
[2018-02-09 01:07] VITALS: BP 121/69; PULSE 93; RESP 18; TEMP 36.2
[2018-02-11 14:08] VITALS: BP 135/70; PULSE 91; RESP 18; TEMP 36.2
--- NOTE | 2018-02-11 14:33 | PCM.WC.PN ---
(1) Wound of left lower extremity Status: Chronic Current Visit: Yes Code(s): S81.802A - Unspecified open wound, left lower leg, initial encounter (2) Abnormal ankle brachial index (SAHIL) Status: Acute Current Visit: Yes Code(s): R68.89 - Other general symptoms and signs (3) Traumatic hematoma of left lower leg Status: Acute Current Visit: Yes Qualifiers: Code(s): S80.12XA - Contusion of left lower leg, initial encounter (4) Afib Status: Chronic Current Visit: No Code(s): I48.91 - Unspecified atrial fibrillation (5) Bilateral lower extremity edema Status: Chronic Current Visit: Yes Code(s): R60.0 - Localized edema (6) Decreased dorsalis pedis pulse Status: Chronic Current Visit: Yes Code(s): R09.89 - Other specified symptoms and signs involving the circulatory and respiratory systems (7) Hypertension Status: Chronic Current Visit: No Code(s): I10 - Essential (primary) hypertension Type of Wound Date of Service: 02/11/18 Chief Complaint: hematoma left lower extremity x 2 anterior surface History of Wound: This is an 82-year-old white female who presents to the wound healing center with complaints of traumatic hematomas to the left lower extremity and bilateral lower extremity edema. She has a past medical history as listed above. It should be noted that she has persistent atrial fibrillation and on chronic Coumadin therapy. The patient states that she was carrying her dog and fell on 11/09/2017 and presented to the emergency department. An x-ray of her left ankle was negative at that time. She states that shortly after she noticed an increase in redness and swelling to her left lower extremity. She had a venous duplex ultrasound which was negative for DVT and she had a repeat ultrasound on 11/17/2017 which demonstrated to areas of the left lower extremity consistent with either an abscess or probable seroma which measured 4.9 cm and the other 6.4 cm. She states that she has been utilizing no compression and has been utilizing triple antibiotic ointment and ice. She denies any signs of systemic infection at this time and does state that the redness and warmth has diminished greatly. She denies any other aggravating or relieving factors. She does note occasional serous discharge. The patient otherwise denies any fever, chills, nausea, vomiting, shortness of breath, chest pain or pressure, palpitations, orthopnea, lower extremity edema, syncope or presyncopal episodes. Progress of Wound: Both anterior and medial sites on left lower extremity traumatic hematoma are now open and draining a small amount of serosanguinous fluid, depths are improving, patient denies any signs and symptoms of infection at this time. Denies any fever, chills, nausea, vomiting, sob, cp, syncope or prescyncopal episodes. - Physical Exam Vital Signs Temp Pulse Resp BP 97.1 F L 91 18 135/70 H 02/11/18 14:08 02/11/18 14:08 02/11/18 14:08 02/11/18 14:08 General: Alert, Oriented x3, Cooperative, No apparent distress HEENT: Atraumatic Oral: Moist Mucosa Lungs: Clear to auscultation, Normal air movement Cardiovascular: Regular rate Abdomen: Soft, Non Tender Extremities: No clubbing, No cyanosis, Diminished Peripheral Pulses, Edema - genralized BLLE edema Skin: Ulcer/ Wound - Traumatic wound to left medial and lateral lower extremity with adherent slough around wound edges, both wound depths are improving and still has tunneling present, see nursing documentation on measurements. No signs of infection at this time. Wound Measurements and Assessment WC - Nurse 1 - General Ulcer Measurement Start: 02/11/18 14:07 Freq: Status: Active Protocol: Activity Type Activity Date Activity User E-Sign Co-Sign Detail Recorded Client Recorded Date Recorded By Document 02/11/18 14:08 AR [id number] 02/11/18 14:14 AR 02/11/18 14:08 Wound Center Nurse 1 [Ulcer Assessment] 2. L lateral chow -Current Size (cm) - Length 0.5 -Current Size (cm) - Width 0.8 -Current Size (cm) - Depth 0.3 -Total Square Cm 0.40 -Tunneling Yes -Tunneling Position (O'clock) 12 -Tunneling Distance (cm) 2 -Undermining/Tunneling Yes -Undermining/Tunneling Starts (O' 12 clock) -Undermining/Tunneling Ends (O'clock) 2 -Exudate Amt Medium (34-66%) -Exudate Type Sanguineous -Wound Margin Flat & Intact -Granulation Amt Large (67-100%) -Granulation Quality Pale [place] -Slough/Fibrin No -Texture (Maryse-wound Skin Appearance) Assessed Localized Edema -Moisture (Maryse-wound Skin Appearance Assessed ) -Color (Maryse-wound Skin Appearance) Assessed Hemosiderin Staining -Temperature ([place]-wound Skin No Abnormality Appearance) (Pt Warm) -Tenderness on Palpation (Maryse-wound No Skin Appearance) -Ulcer Cleansing Rinsed/ Irrigated with Saline -Foul Odor after Cleansing No -Anesthetic Used 4% Lidocaine Solution 1. L medial chow -Current Size (cm) - Length 0.5 -Current Size (cm) - Width 0.8 -Current Size (cm) - Depth 0.3 -Total Square Cm 0.40 -Tunneling Yes -Tunneling Position (O'clock) 12 -Tunneling Distance (cm) 4 -Undermining/Tunneling Yes -Undermining/Tunneling Starts (O' 12 clock) -Undermining/Tunneling Ends (O'clock) 2 -Exudate Amt Medium (34-66%) -Exudate Type Sanguineous -Wound Margin Flat & Intact -Granulation Amt Large (67-100%) -Granulation Quality [place] Red -Slough/Fibrin No -Texture (Maryse-wound Skin Appearance) Assessed Localized Edema -Moisture (Maryse-wound Skin Appearance Assessed ) -Color (Maryse-wound Skin Appearance) Assessed Hemosiderin Staining -Temperature (Maryse-wound Skin No Abnormality Appearance) (Pt Warm) -Tenderness on Palpation (Maryse-wound Yes Skin Appearance) -Ulcer Cleansing Rinsed/ Irrigated with Saline -Foul Odor after Cleansing No -Anesthetic Used 4% Lidocaine Solution [Edema Assessment] -Lower Limb Edema Present Yes -Left Calf (cm) 41 -Left Ankle (cm) 27 WC - Nurse 2 - General Ulcer CM Notes Start: 02/11/18 14:07 Freq: Status: Active Protocol: Activity Type Activity Date Activity User E-Sign Co-Sign Detail Recorded Client Recorded Date Recorded By Document 02/11/18 14:24 CS [id number] 02/11/18 14:25 CS 02/11/18 14:24 Wound Center Nurse 2 [Procedure/Treatment] 2. L lateral chow -Time 14:24 -Correct Patient Yes -Correct Side, Site, Position Yes -Correct Procedure Yes -Procedure Performed Yes -Type of Procedure Debridement -Clinical Debridement Subcutaneous -Post Debridement Size (cm) - Length 0.7 -Post Debridement Size (cm) - Width 0.9 -Post Debridement Size (cm) - Depth 0.8 -Total Square Cm 0.63 -Wound/Ulcer Outcome Not Healed -Ulcer Cleansing Not Cleansed -Foul Odor after Cleansing No -Bioengineered Tissue No -Bleeding Controlled with NA -Offloading No -Treatment Response Procedure Tolerated Well 1. L medial chow -Time 14:25 -Correct Patient Yes -Correct Side, Site, Position Yes -Correct Procedure Yes -Procedure Performed Yes -Type of Procedure Debridement -Clinical Debridement Subcutaneous -Post Debridement Size (cm) - Length 0.5 -Post Debridement Size (cm) - Width 0.8 -Post Debridement Size (cm) - Depth 0.5 -Total Square Cm 0.40 -Wound/Ulcer Outcome Not Healed -Ulcer Cleansing Not Cleansed -Foul Odor after Cleansing No -Bioengineered Tissue No -Bleeding Controlled with NA -Offloading No -Treatment Response Procedure Tolerated Well [See Physician Procedure note for Specifics] Pain Scale: 0-10 Numeric [Pain] -Is Patient Pain Free? Yes Musculoskeletal: No Tenderness to Palpation of Joints or Extremities Neurological: Neuro grossly intact Psych/Mental Status: Normal Affect, Appropriate, Alert and oriented to time, place, person, mood and affect Debridement Note Post-Debridement Measurements/Treatment WC - Nurse 2 - General Ulcer CM Notes Start: 02/11/18 14:07 Freq: Status: Active Protocol: Activity Type Activity Date Activity User E-Sign Co-Sign Detail Recorded Client Recorded Date Recorded By Document 02/11/18 14:24 CS [id number] 02/11/18 14:25 CS 02/11/18 14:24 Wound Center Nurse 2 2. L lateral chow -Time 14:24 -Correct Patient Yes -Correct Side, Site, Position Yes -Correct Procedure Yes -Procedure Performed Yes -Type of Procedure Debridement -Clinical Debridement Subcutaneous -Post Debridement Size (cm) - Length 0.7 -Post Debridement Size (cm) - Width 0.9 -Post Debridement Size (cm) - Depth 0.8 -Total Square Cm 0.63 -Wound/Ulcer Outcome Not Healed -Ulcer Cleansing Not Cleansed -Foul Odor after Cleansing No -Bioengineered Tissue No -Bleeding Controlled with NA -Offloading No -Treatment Response Procedure Tolerated Well 1. L medial chow -Time 14:25 -Correct Patient Yes -Correct Side, Site, Position Yes -Correct Procedure Yes -Procedure Performed Yes -Type of Procedure Debridement -Clinical Debridement Subcutaneous -Post Debridement Size (cm) - Length 0.5 -Post Debridement Size (cm) - Width 0.8 -Post Debridement Size (cm) - Depth 0.5 -Total Square Cm 0.40 -Wound/Ulcer Outcome Not Healed -Ulcer Cleansing Not Cleansed -Foul Odor after Cleansing No -Bioengineered Tissue No -Bleeding Controlled with NA -Offloading No -Treatment Response Procedure Tolerated Well Pain Scale: 0-10 Numeric Is Patient Pain Free? Yes Wound debrided: Left medial and lateral lower extremity wound status post traumatic hematom Laterality: Left Type of Debridement: Excisional debridement Anesthesia Used: 5% Lidocaine Gel Depth: in the subcutaneous layer Percentage of wound debrided: 100 Instrument Used: 7mm curette Tissue Removed: Slough and devitalized tissue Severity: Fat Layer Exposed Amount of bleeding with debridement: Mild Bleeding Controlled with: Pressure Patient tolerated procedure well Assessment/Plan Active Problems (Last Reviewed 01/26/18 @ 13:07 by Arlette Fried) Traumatic hematoma of left lower leg (Acute) Bilateral lower extremity edema (Chronic) Decreased dorsalis pedis pulse (Chronic) Abnormal ankle brachial index (SAHIL) (Acute) Wound of left lower extremity (Chronic) Assessment: See above diagnoses Plan: The patient was seen and examined at the wound center today and was updated on the plan of care. A subcutaneous debridement was performed today. The patient tolerated the procedure well. The previous hematoma sites on the left lower extremity continue to be open and draining small amount of serosanguineous discharge. There is still tunneling present. Wound cultures were collected previously and demonstrated staph lugdunesis, capitis , corynebacterium, anaerobic cocci and clostridium species, pt completed a course of Flagyl and doxy. The patients wound care will consist of: daily aquacell silver dressing changes and double Tubigrip. No further compression at this time due to screening SAHIL being abnormal to the left SAHIL 1.5 and right SAHIL 1.3. Baseline bloodwork reviewed from ER notes and essentially within normal limits, recent venous duplex, ultrasound, and x-ray reviewed as well. Vascular studies ordered. [facility] vac approved prior but patient has returned it so she is not charged for it. Patient educated on the importance of diet on wound healing and instructed to increase protein and vitamin C intake. Patient verbalized understanding. Patient will follow up at wound healing center in 2 weeks. Discussed red flag symptoms of infection that require urgent medical attention. Stressed the importance of increased protein intake daily since she has only been drinking an ensure shake every other day. This note was generated with [employer] software. It may contain incorrect words, spelling, and punctuation that were not noted in checking the note before signing. Code Visit 111xxx-113xx: [id number] [place] subq tissue 20 sq cm/<
--- NOTE | 2018-02-11 14:39 | PN.PCM_ITS ---
(1) Wound of left lower extremity Status: Chronic Current Visit: Yes Code(s): S81.802A - Unspecified open wound, left lower leg, initial encounter (2) Abnormal ankle brachial index (SAHIL) Status: Acute Current Visit: Yes Code(s): R68.89 - Other general symptoms and signs (3) Traumatic hematoma of left lower leg Status: Acute Current Visit: Yes Qualifiers: Code(s): S80.12XA - Contusion of left lower leg, initial encounter (4) Afib Status: Chronic Current Visit: No Code(s): I48.91 - Unspecified atrial fibrillation (5) Bilateral lower extremity edema Status: Chronic Current Visit: Yes Code(s): R60.0 - Localized edema (6) Decreased dorsalis pedis pulse Status: Chronic Current Visit: Yes Code(s): R09.89 - Other specified symptoms and signs involving the circulatory and respiratory systems (7) Hypertension Status: Chronic Current Visit: No Code(s): I10 - Essential (primary) hypertension Type of Wound Date of Service: 02/11/18 Chief Complaint: hematoma left lower extremity x 2 anterior surface History of Wound: This is an 82-year-old white female who presents to the wound healing center with complaints of traumatic hematomas to the left lower extremity and bilateral lower extremity edema. She has a past medical history as listed above. It should be noted that she has persistent atrial fibrillation and on chronic Coumadin therapy. The patient states that she was carrying her dog and fell on 11/09/2017 and presented to the emergency department. An x-ray of her left ankle was negative at that time. She states that shortly after she noticed an increase in redness and swelling to her left lower extremity. She had a venous duplex ultrasound which was negative for DVT and she had a repeat ultrasound on 11/17/2017 which demonstrated to areas of the left lower extremity consistent with either an abscess or probable seroma which measured 4.9 cm and the other 6.4 cm. She states that she has been utilizing no compression and has been utilizing triple antibiotic ointment and ice. She denies any signs of systemic infection at this time and does state that the redness and warmth has diminished greatly. She denies any other aggravating or relieving factors. She does note occasional serous discharge. The patient otherwise denies any fever, chills, nausea, vomiting, shortness of breath, chest pain or pressure, palpitations, orthopnea, lower extremity edema, syncope or presyncopal episodes. Progress of Wound: Both anterior and medial sites on left lower extremity traumatic hematoma are now open and draining a small amount of serosanguinous fluid, depths are improving, patient denies any signs and symptoms of infection at this time. Denies any fever, chills, nausea, vomiting, sob, cp, syncope or prescyncopal episodes. - Physical Exam Vital Signs Temp Pulse Resp BP 97.1 F L 91 18 135/70 H 02/11/18 14:08 02/11/18 14:08 02/11/18 14:08 02/11/18 14:08 General: Alert, Oriented x3, Cooperative, No apparent distress HEENT: Atraumatic Oral: Moist Mucosa Lungs: Clear to auscultation, Normal air movement Cardiovascular: Regular rate Abdomen: Soft, Non Tender Extremities: No clubbing, No cyanosis, Diminished Peripheral Pulses, Edema - g enralized BLLE edema Skin: Ulcer/ Wound - Traumatic wound to left medial and lateral lower extremity with adherent slough around wound edges, both wound depths are improving and still has tunneling present, see nursing documentation on measurements. No signs of infection at this time. Wound Measurements and Assessment WC - Nurse 1 - General Ulcer Measurement Start: 02/11/18 14:07 Freq: Status: Active Protocol: Activity Type Activity Date Activity User E-Sign Co-Sign Detail Recorded Client Recorded Date Recorded By Document 02/11/18 14:08 TN [id number] 02/11/18 14:14 TN 02/11/18 14:08 Wound Center Nurse 1 [Ulcer Assessment] 2. L lateral chow -Current Size (cm) - Length 0.5 -Current Size (cm) - Width 0.8 -Current Size (cm) - Depth 0.3 -Total Square Cm 0.40 -Tunneling Yes -Tunneling Position (O'clock) 12 -Tunneling Distance (cm) 2 -Undermining/Tunneling Yes -Undermining/Tunneling Starts (O' 12 clock) -Undermining/Tunneling Ends (O'clock) 2 -Exudate Amt Medium (34-66%) -Exudate Type Sanguineous -Wound Margin Flat & Intact -Granulation Amt Large (67-100%) -Granulation Quality Pale [place] -Slough/Fibrin No -Texture (Maryse-wound Skin Appearance) Assessed Localized Edema -Moisture (Maryse-wound Skin Appearance Assessed ) -Color (Maryse-wound Skin Appearance) Assessed Hemosiderin Staining -Temperature (Maryse-wound Skin No Abnormality Appearance) (Pt Warm) -Tenderness on Palpation (Maryse-wound No Skin Appearance) -Ulcer Cleansing Rinsed/ Irrigated with Saline -Foul Odor after Cleansing No -Anesthetic Used 4% Lidocaine Solution 1. L medial chow -Current Size (cm) - Length 0.5 -Current Size (cm) - Width 0.8 -Current Size (cm) - Depth 0.3 -Total Square Cm 0.40 -Tunneling Yes -Tunneling Position (O'clock) 12 -Tunneling Distance (cm) 4 -Undermining/Tunneling Yes -Undermining/Tunneling Starts (O' 12 clock) -Undermining/Tunneling Ends (O'clock) 2 -Exudate Amt Medium (34-66%) -Exudate Type Sanguineous -Wound Margin Flat & Intact -Granulation Amt Large (67-100%) -Granulation Quality [place] Red -Slough/Fibrin No -Texture (Maryse-wound Skin Appearance) Assessed Localized Edema -Moisture (Maryse-wound Skin Appearance Assessed ) -Color (Maryse-wound Skin Appearance) Assessed Hemosiderin Staining -Temperature (Maryse-wound Skin No Abnormality Appearance) (Pt Warm) -Tenderness on Palpation (Maryse-wound Yes Skin Appearance) -Ulcer Cleansing Rinsed/ Irrigated with Saline -Foul Odor after Cleansing No -Anesthetic Used 4% Lidocaine Solution [Edema Assessment] -Lower Limb Edema Present Yes -Left Calf (cm) 41 -Left Ankle (cm) 27 WC - Nurse 2 - General Ulcer CM Notes Start: 02/11/18 14:07 Freq: Status: Active Protocol: Activity Type Activity Date Activity User E-Sign Co-Sign Detail Recorded Client Recorded Date Recorded By Document 02/11/18 14:24 CS [id number] 02/11/18 14:25 CS 02/11/18 14:24 Wound Center Nurse 2 [Procedure/Treatment] 2. L lateral cohw -Time 14:24 -Correct Patient Yes -Correct Side, Site, Position Yes -Correct Procedure Yes -Procedure Performed Yes -Type of Procedure Debridement -Clinical Debridement Subcutaneous -Post Debridement Size (cm) - Length 0.7 -Post Debridement Size (cm) - Width 0.9 -Post Debridement Size (cm) - Depth 0.8 -Total Square Cm 0.63 -Wound/Ulcer Outcome Not Healed -Ulcer Cleansing Not Cleansed -Foul Odor after Cleansing No -Bioengineered Tissue No -Bleeding Controlled with NA -Offloading No -Treatment Response Procedure Tolerated Well 1. L medial chow -Time 14:25 -Correct Patient Yes -Correct Side, Site, Position Yes -Correct Procedure Yes -Procedure Performed Yes -Type of Procedure Debridement -Clinical Debridement Subcutaneous -Post Debridement Size (cm) - Length 0.5 -Post Debridement Size (cm) - Width 0.8 -Post Debridement Size (cm) - Depth 0.5 -Total Square Cm 0.40 -Wound/Ulcer Outcome Not Healed -Ulcer Cleansing Not Cleansed -Foul Odor after Cleansing No -Bioengineered Tissue No -Bleeding Controlled with NA -Offloading No -Treatment Response Procedure Tolerated Well [See Physician Procedure note for Specifics] Pain Scale: 0-10 Numeric [Pain] -Is Patient Pain Free? Yes Musculoskeletal: No Tenderness to Palpation of Joints or Extremities Neurological: Neuro grossly intact Psych/Mental Status: Normal Affect, Appropriate, Alert and oriented to time, place, person, mood and affect Debridement Note Post-Debridement Measurements/Treatment WC - Nurse 2 - General Ulcer CM Notes Start: 02/11/18 14:07 Freq: Status: Active Protocol: Activity Type Activity Date Activity User E-Sign Co-Sign Detail Recorded Client Recorded Date Recorded By Document 02/11/18 14:24 CS [id number] 02/11/18 14:25 CS 02/11/18 14:24 Wound Center Nurse 2 2. L lateral chow -Time 14:24 -Correct Patient Yes -Correct Side, Site, Position Yes -Correct Procedure Yes -Procedure Performed Yes -Type of Procedure Debridement -Clinical Debridement Subcutaneous -Post Debridement Size (cm) - Length 0.7 -Post Debridement Size (cm) - Width 0.9 -Post Debridement Size (cm) - Depth 0.8 -Total Square Cm 0.63 -Wound/Ulcer Outcome Not Healed -Ulcer Cleansing Not Cleansed -Foul Odor after Cleansing No -Bioengineered Tissue No -Bleeding Controlled with NA -Offloading No -Treatment Response Procedure Tolerated Well 1. L medial chow -Time 14:25 -Correct Patient Yes -Correct Side, Site, Position Yes -Correct Procedure Yes -Procedure Performed Yes -Type of Procedure Debridement -Clinical Debridement Subcutaneous -Post Debridement Size (cm) - Length 0.5 -Post Debridement Size (cm) - Width 0.8 -Post Debridement Size (cm) - Depth 0.5 -Total Square Cm 0.40 -Wound/Ulcer Outcome Not Healed -Ulcer Cleansing Not Cleansed -Foul Odor after Cleansing No -Bioengineered Tissue No -Bleeding Controlled with NA -Offloading No -Treatment Response Procedure Tolerated Well Pain Scale: 0-10 Numeric Is Patient Pain Free? Yes Wound debrided: Left medial and lateral lower extremity wound status post traumatic hematom Laterality: Left Type of Debridement: Excisional debridement Anesthesia Used: 5% Lidocaine Gel Depth: in the subcutaneous layer Percentage of wound debrided: 100 Instrument Used: 7mm curette Tissue Removed: Slough and devitalized tissue Severity: Fat Layer Exposed Amount of bleeding with debridement: Mild Bleeding Controlled with: Pressure Patient tolerated procedure well Assessment/Plan Active Problems (Last Reviewed 01/26/18 @ 13:07 by Arlette Fried) Traumatic hematoma of left lower leg (Acute) Bilateral lower extremity edema (Chronic) Decreased dorsalis pedis pulse (Chronic) Abnormal ankle brachial index (SAHIL) (Acute) Wound of left lower extremity (Chronic) Assessment: See above diagnoses Plan: The patient was seen and examined at the wound center today and was upd ated on the plan of care. A subcutaneous debridement was performed today. The patient tolerated the procedure well. The previous hematoma sites on the left lower extremity continue to be open and draining small amount of serosanguineous discharge. There is still tunneling present. Wound cultures were collected previously and demonstrated staph lugdunesis, capitis , corynebacterium, anaerobic cocci and clostridium species, pt completed a course of Flagyl and doxy. The patients wound care will consist of: daily aquacell silver dressing changes and double Tubigrip. No further compression at this time due to screening SAHIL being abnormal to the left SAHIL 1.5 and right SAHIL 1.3. Baseline bloodwork reviewed from ER notes and essentially within normal limits, recent venous duplex, ultrasound, and x-ray reviewed as well. Vascular studies ordered. [facility] vac approved prior but patient has returned it so she is not charged for it. Patient educated on the importance of diet on wound healing and instructed to increase protein and vitamin C intake. Patient verbalized understanding. Patient will follow up at wound healing center in 2 weeks. Discussed red flag symptoms of infection that require urgent medical attention. Stressed the importance of increased protein intake daily since she has only been drinking an ensure shake every other day. This note was generated with [employer] software. It may contain incorrect words, spelling, and punctuation that were not noted in checking the note before signing. Code Visit 111xxx-113xx: [id number] [place] subq tissue 20 sq cm/<
[2018-02-25 12:57] VITALS: BP 125/69; PULSE 83; RESP 16; TEMP 35.8
--- NOTE | 2018-02-25 16:20 | PCM.WC.PN ---
(1) Wound of left lower extremity Status: Chronic Current Visit: Yes Code(s): S81.802A - Unspecified open wound, left lower leg, initial encounter (2) Abnormal ankle brachial index (SAHIL) Status: Acute Current Visit: Yes Code(s): R68.89 - Other general symptoms and signs (3) Traumatic hematoma of left lower leg Status: Acute Current Visit: Yes Qualifiers: Code(s): S80.12XA - Contusion of left lower leg, initial encounter (4) Afib Status: Chronic Current Visit: No Code(s): I48.91 - Unspecified atrial fibrillation (5) Bilateral lower extremity edema Status: Chronic Current Visit: Yes Code(s): R60.0 - Localized edema (6) Decreased dorsalis pedis pulse Status: Chronic Current Visit: Yes Code(s): R09.89 - Other specified symptoms and signs involving the circulatory and respiratory systems (7) Hypertension Status: Chronic Current Visit: No Code(s): I10 - Essential (primary) hypertension (8) Laceration of toe of left foot Status: Acute Current Visit: Yes Qualifiers: Encounter type: initial encounter Toe: lesser toe Damage to nail status: without damage Foreign body presence: without foreign body Qualified Code(s): S91.115A - Laceration without foreign body of left lesser toe(s) without damage to nail, initial encounter Code(s): S91.119A - Laceration without foreign body of unspecified toe without damage to nail, initial encounter Type of Wound Date of Service: 02/25/18 Chief Complaint: hematoma left lower extremity x 2 anterior surface History of Wound: This is an 82-year-old white female who presents to the wound healing center with complaints of traumatic hematomas to the left lower extremity and bilateral lower extremity edema. She has a past medical history as listed above. It should be noted that she has persistent atrial fibrillation and on chronic Coumadin therapy. The patient states that she was carrying her dog and fell on 11/09/2017 and presented to the emergency department. An x-ray of her left ankle was negative at that time. She states that shortly after she noticed an increase in redness and swelling to her left lower extremity. She had a venous duplex ultrasound which was negative for DVT and she had a repeat ultrasound on 11/17/2017 which demonstrated to areas of the left lower extremity consistent with either an abscess or probable seroma which measured 4.9 cm and the other 6.4 cm. She states that she has been utilizing no compression and has been utilizing triple antibiotic ointment and ice. She denies any signs of systemic infection at this time and does state that the redness and warmth has diminished greatly. She denies any other aggravating or relieving factors. She does note occasional serous discharge. The patient otherwise denies any fever, chills, nausea, vomiting, shortness of breath, chest pain or pressure, palpitations, orthopnea, lower extremity edema, syncope or presyncopal episodes. Progress of Wound: Both anterior and medial sites on left lower extremity traumatic hematoma remain open, depths are improving, patient denies any signs and symptoms of infection at this time. Denies any fever, chills, nausea, vomiting, sob, cp, syncope or prescyncopal episodes. 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 - Physical Exam Vital Signs Temp Pulse Resp BP 96.4 F L 83 16 125/69 H 02/25/18 12:57 02/25/18 12:57 02/25/18 12:57 02/25/18 12:57 General: Alert, Oriented x3, Cooperative, No apparent distress HEENT: Atraumatic Oral: Moist Mucosa Lungs: Clear to auscultation, Normal air movement Cardiovascular: Regular rate, Regular Rhythm Abdomen: Bowel Sounds Present, Soft, Non Tender, Obese Extremities: No clubbing, No cyanosis, Diminished Peripheral Pulses - Dorsal pedis pulses, Edema - Generalized bilateral lower extremity edema Skin: Ulcer/ Wound - Traumatic hematoma wounds to left lower extremity with adherent slough around wound bed, tunneling still present. New laceration wound to left second toe with adherent slough, no signs of infection Wound Measurements and Assessment WC - Nurse 1 - General Ulcer Measurement Start: 02/11/18 14:07 Freq: Status: Active Protocol: Activity Type Activity Date Activity User E-Sign Co-Sign Detail Recorded Client Recorded Date Recorded By Document 02/25/18 12:57 [facility] [id number] 02/25/18 13:08 [facility] 02/25/18 12:57 Wound Center Nurse 1 [Ulcer Assessment] #3- LT 2ND TOE TIP -Combined with other wound No -Current Size (cm) - Length 0.3 -Current Size (cm) - Width 0.4 -Current Size (cm) - Depth 0.1 -Total Square Cm 0.12 -Date of Last Picture (Recall this 02/25/18 field) -Photo Taken No -Epithelialization None Present -Tunneling No -Undermining/Tunneling No -Circular Undermining No -Exudate Amt None Present -Wound Margin Flat & Intact -Granulation Amt None Present (0 %) -Slough/Fibrin Yes -Necrosis Amt Large (67-100%) -Necrotic Tissue Type Eschar -Texture (Maryse-wound Skin Appearance) Localized Edema Scarring -Color (Maryse-wound Skin Appearance) Erythema -Temperature (Maryse-wound Skin No Abnormality Appearance) (Pt Warm) -Tenderness on Palpation (Maryse-wound No Skin Appearance) -Ulcer Cleansing Rinsed/ Irrigated with Saline -Foul Odor after Cleansing No -Anesthetic Used 5% Lidocaine Gel 2. L lateral chow -Combined with other wound No -Current Size (cm) - Length 1.1 -Current Size (cm) - Width 1 -Current Size (cm) - Depth 2.4 -Total Square Cm 1.1 -Date of Last Picture (Recall this 02/25/18 field) -Photo Taken Yes -Epithelialization None Present -Tunneling No -Undermining/Tunneling No -Circular Undermining No -Exudate Amt Medium -Exudate Type Serosanguineous -Wound Margin Flat & Intact -Granulation Amt Large (67-100%) -Granulation Quality Red -Slough/Fibrin No -Necrosis Amt None Present (0 %) -Texture (Maryse-wound Skin Appearance) Scarring -Moisture (Maryse-wound Skin Appearance Dry/Scaly ) -Color (Maryse-wound Skin Appearance) Hemosiderin Staining -Temperature (Maryse-wound Skin No Abnormality Appearance) (Pt Warm) -Tenderness on Palpation (Maryse-wound No Skin Appearance) -Ulcer Cleansing Rinsed/ Irrigated with Saline -Foul Odor after Cleansing No -Anesthetic Used 4% Lidocaine Solution 5% Lidocaine Gel 1. L medial chow -Combined with other wound No -Current Size (cm) - Length 0.3 -Current Size (cm) - Width 0.6 -Current Size (cm) - Depth 2.9 -Total Square Cm 0.18 -Date of Last Picture (Recall this 02/25/18 field) -Photo Taken Yes -Epithelialization None Present -Tunneling No -Undermining/Tunneling No -Circular Undermining No -Exudate Amt Small -Exudate Type Serosanguineous -Wound Margin Flat & Intact -Granulation Amt Large (67-100%) -Granulation Quality Red -Slough/Fibrin No -Necrosis Amt None Present (0 %) -Texture (Maryse-wound Skin Appearance) Scarring -Moisture (Maryse-wound Skin Appearance Dry/Scaly ) -Color (Maryse-wound Skin Appearance) Assessed Hemosiderin Staining -Temperature (Maryse-wound Skin No Abnormality Appearance) (Pt Warm) -Tenderness on Palpation (Maryse-wound No Skin Appearance) -Ulcer Cleansing Rinsed/ Irrigated with Saline -Foul Odor after Cleansing No -Anesthetic Used 4% Lidocaine Solution 5% Lidocaine Gel [Edema Assessment] -Lower Limb Edema Present Yes -Left Calf (cm) 42.5 -Left Ankle (cm) 27.5 WC - Nurse 2 - General Ulcer CM Notes Start: 02/11/18 14:07 Freq: Status: Active Protocol: Activity Type Activity Date Activity User E-Sign Co-Sign Detail Recorded Client Recorded Date Recorded By Document 02/25/18 13:19 [id number] 02/25/18 13:22 02/25/18 13:19 Wound Center Nurse 2 [Procedure/Treatment] #3- LT 2ND TOE TIP -Time 13:19 -Correct Patient Yes -Correct Side, Site, Position Yes -Correct Procedure Yes -Procedure Performed Yes -Type of Procedure Debridement -Clinical Debridement Subcutaneous -Post Debridement Size (cm) - Length 0.3 -Post Debridement Size (cm) - Width 0.4 -Post Debridement Size (cm) - Depth 0.1 -Total Square Cm 0.12 -Wound/Ulcer Outcome Not Healed -Ulcer Cleansing Not Cleansed -Foul Odor after Cleansing No -Bioengineered Tissue No -Bleeding Controlled with NA -Offloading No -Treatment Response Procedure Tolerated Well 2. L lateral chow -Time 13:19 -Correct Patient Yes -Correct Side, Site, Position Yes -Correct Procedure Yes -Procedure Performed Yes -Type of Procedure Debridement -Clinical Debridement Subcutaneous -Post Debridement Size (cm) - Length 1.2 -Post Debridement Size (cm) - Width 0.9 -Post Debridement Size (cm) - Depth 1 -Total Square Cm 1.08 -Wound/Ulcer Outcome Not Healed -Ulcer Cleansing Not Cleansed -Foul Odor after Cleansing No -Bioengineered Tissue No -Bleeding Controlled with NA -Offloading No -Treatment Response Procedure Tolerated Well 1. L medial chow -Time 13:21 -Correct Patient Yes -Correct Side, Site, Position Yes -Correct Procedure Yes -Procedure Performed Yes -Type of Procedure Debridement -Clinical Debridement Subcutaneous -Post Debridement Size (cm) - Length 0.3 -Post Debridement Size (cm) - Width 0.5 -Post Debridement Size (cm) - Depth 0.5 -Total Square Cm 0.15 -Wound/Ulcer Outcome Not Healed -Ulcer Cleansing Not Cleansed -Foul Odor after Cleansing No -Bioengineered Tissue No -Bleeding Controlled with NA -Offloading No -Treatment Response Procedure Tolerated Well [See Physician Procedure note for Specifics] Pain Scale: 0-10 Numeric [Pain] -Is Patient Pain Free? Yes Neurological: Neuro grossly intact Psych/Mental Status: Normal Affect, Appropriate, Alert and oriented to time, place, person, mood and affect Debridement Note Post-Debridement Measurements/Treatment WC - Nurse 2 - General Ulcer CM Notes Start: 02/11/18 14:07 Freq: Status: Active Protocol: Activity Type Activity Date Activity User E-Sign Co-Sign Detail Recorded Client Recorded Date Recorded By Document 02/11/18 14:24 [id number] 02/11/18 14:25 CS Document 02/25/18 13:19 [id number] 02/25/18 13:22 02/11/18 02/25/18 14:24 13:19 Wound Center Nurse 2 #3- LT 2ND TOE TIP -Time 13:19 -Correct Patient Yes -Correct Side, Site, Position Yes -Correct Procedure Yes -Procedure Performed Yes -Type of Procedure Debridement -Clinical Debridement Subcutaneous -Post Debridement Size (cm) - Length 0.3 -Post Debridement Size (cm) - Width 0.4 -Post Debridement Size (cm) - Depth 0.1 -Total Square Cm 0.12 -Wound/Ulcer Outcome Not Healed -Ulcer Cleansing Not Cleansed -Foul Odor after Cleansing No -Bioengineered Tissue No -Bleeding Controlled with NA -Offloading No -Treatment Response Procedure Tolerated Well 2. L lateral chow -Time 14:24 13:19 -Correct Patient Yes Yes -Correct Side, Site, Position Yes Yes -Correct Procedure Yes Yes -Procedure Performed Yes Yes -Type of Procedure Debridement Debridement -Clinical Debridement Subcutaneous Subcutaneous -Post Debridement Size (cm) - Length 0.7 1.2 -Post Debridement Size (cm) - Width 0.9 0.9 -Post Debridement Size (cm) - Depth 0.8 1 -Total Square Cm 0.63 1.08 -Wound/Ulcer Outcome Not Healed Not Healed -Ulcer Cleansing Not Cleansed Not Cleansed -Foul Odor after Cleansing No No -Bioengineered Tissue No No -Bleeding Controlled with NA NA -Offloading No No -Treatment Response Procedure Procedure Tolerated Well Tolerated Well 1. L medial chow -Time 14:25 13:21 -Correct Patient Yes Yes -Correct Side, Site, Position Yes Yes -Correct Procedure Yes Yes -Procedure Performed Yes Yes -Type of Procedure Debridement Debridement -Clinical Debridement Subcutaneous Subcutaneous -Post Debridement Size (cm) - Length 0.5 0.3 -Post Debridement Size (cm) - Width 0.8 0.5 -Post Debridement Size (cm) - Depth 0.5 0.5 -Total Square Cm 0.40 0.15 -Wound/Ulcer Outcome Not Healed Not Healed -Ulcer Cleansing Not Cleansed Not Cleansed -Foul Odor after Cleansing No No -Bioengineered Tissue No No -Bleeding Controlled with NA NA -Offloading No No -Treatment Response Procedure Procedure Tolerated Well Tolerated Well Pain Scale: 0-10 Numeric Is Patient Pain Free? Yes Yes Wound debrided: Left lower extremity wound medial and lateral status post traumati hematoma Laterality: Left Type of Debridement: Excisional debridement Anesthesia Used: 5% Lidocaine Gel Depth: in the subcutaneous layer Percentage of wound debrided: 100 Instrument Used: 7mm curette Tissue Removed: Slough and devitalized tissue Severity: Fat Layer Exposed Amount of bleeding with debridement: Mild Bleeding Controlled with: Pressure Patient tolerated procedure well - Additional Wound Wound debrided: Laceration to left second toe Laterality: Left Type of Debridement: Excisional debridement Anesthesia Used: 5% Lidocaine Gel Depth: in the subcutaneous layer Percentage of wound debrided: 100 Instrument Used: 3mm curette Tissue Removed: Slough and devitalized tissue Severity: Fat Layer Exposed Amount of bleeding with debridement: Mild Bleeding Controlled with: Pressure Patient tolerated procedure: Patient tolerated procedure well Assessment/Plan Active Problems (Last Reviewed 02/16/18 @ 10:28 by Aure Garland) Laceration of toe of left foot (Acute) Traumatic hematoma of left lower leg (Acute) Bilateral lower extremity edema (Chronic) Decreased dorsalis pedis pulse (Chronic) Abnormal ankle brachial index (SAHIL) (Acute) Wound of left lower extremity (Chronic) Assessment: See above diagnoses Plan: The patient was seen and examined at the wound center today and was updated on the plan of care. A subcutaneous debridement was performed today. The patient tolerated the procedure well. The previous hematoma sites on the left lower extremity continue to be open and draining small amount of serosanguineous discharge. There is still tunneling present which is improving. Wound cultures were collected previously and demonstrated staph lugdunesis, capitis , corynebacterium, anaerobic cocci and clostridium species, pt completed a course of Flagyl and doxy. The patients wound care will consist of: daily aquacell silver dressing changes to all wounds and double Tubigrip. No further compression at this time due to screening SAHIL being abnormal to the left SAHIL 1.5 and right SAHIL 1.3. Baseline bloodwork reviewed from ER notes and essentially within normal limits, recent venous duplex, ultrasound, and x-ray reviewed as well. Vascular studies ordered. Patient educated on the importance of diet on wound healing and instructed to increase protein and vitamin C intake. Patient verbalized understanding. Patient will follow up at wound healing center in 2 weeks. Discussed red flag symptoms of infection that require urgent medical attention. Stressed the importance of increased protein intake daily since she has only been drinking an ensure shake every other day. This note was generated with [employer] dictation software. It may contain incorrect words, spelling, and punctuation that were not noted in checking the note before signing. Code Visit [id number]: [id number] [place] subq tissue 20 sq cm/<
--- NOTE | 2018-02-26 09:24 | PN.PCM_ITS ---
(1) Wound of left lower extremity Status: Chronic Current Visit: Yes Code(s): S81.802A - Unspecified open wound, left lower leg, initial encounter (2) Abnormal ankle brachial index (SAHIL) Status: Acute Current Visit: Yes Code(s): R68.89 - Other general symptoms and signs (3) Traumatic hematoma of left lower leg Status: Acute Current Visit: Yes Qualifiers: Code(s): S80.12XA - Contusion of left lower leg, initial encounter (4) Afib Status: Chronic Current Visit: No Code(s): I48.91 - Unspecified atrial fibrillation (5) Bilateral lower extremity edema Status: Chronic Current Visit: Yes Code(s): R60.0 - Localized edema (6) Decreased dorsalis pedis pulse Status: Chronic Current Visit: Yes Code(s): R09.89 - Other specified symptoms and signs involving the circulatory and respiratory systems (7) Hypertension Status: Chronic Current Visit: No Code(s): I10 - Essential (primary) hypertension (8) Laceration of toe of left foot Status: Acute Current Visit: Yes Qualifiers: Encounter type: initial encounter Toe: lesser toe Damage to nail status: without damage Foreign body presence: without foreign body Qualified Cod e(s): S91.115A - Laceration without foreign body of left lesser toe(s) without damage to nail, initial encounter Code(s): S91.119A - Laceration without foreign body of unspecified toe without damage to nail, initial encounter Type of Wound Date of Service: 02/25/18 Chief Complaint: hematoma left lower extremity x 2 anterior surface History of Wound: This is an 82-year-old white female who presents to the wound healing center with complaints of traumatic hematomas to the left lower extremity and bilateral lower extremity edema. She has a past medical history as listed above. It should be noted that she has persistent atrial fibrillation and on chronic Coumadin therapy. The patient states that she was carrying her dog and fell on 11/09/2017 and presented to the emergency department. An x-ray of her left ankle was negative at that time. She states that shortly after she noticed an increase in redness and swelling to her left lower extremity. She had a venous duplex ultrasound which was negative for DVT and she had a repeat ultrasound on 11/17/2017 which demonstrated to areas of the left lower extremity consistent with either an abscess or probable seroma which measured 4.9 cm and the other 6.4 cm. She states that she has been utilizing no compression and has been utilizing triple antibiotic ointment and ice. She denies any signs of systemic infection at this time and does state that the redness and warmth has diminished greatly. She denies any other aggravating or relieving factors. She does note occasional serous discharge. The patient otherwise denies any fever, chills, nausea, vomiting, shortness of breath, chest pain or pressure, palpitations, orthopnea, lower extremity edema, syncope or presyncopal episodes. Progress of Wound: Both anterior and medial sites on left lower extremity traumatic hematoma remain open, depths are improving, patient denies any signs and symptoms of infection at this time. Denies any fever, chills, nausea, vomiting, sob, cp, syncope or prescyncopal episodes. The patient does note a new wound to her left second toe that occurred after patient was having her toenails trimmed by the ditch tender and noted a small laceration afterwards. - Physical Exam Vital Signs Temp Pulse Resp BP 96.4 F L 83 16 125/69 H 02/25/18 12:57 02/25/18 12:57 02/25/18 12:57 02/25/18 12:57 General: Alert, Oriented x3, Cooperative, No apparent distress HEENT: Atraumatic Oral: Moist Mucosa Lungs: Clear to auscultation, Normal air movement Cardiovascular: Regular rate, Regular Rhythm Abdomen: Bowel Sounds Present, Soft, Non Tender, Obese Extremities: No clubbing, No cyanosis, Diminished Peripheral Pulses - Dorsal pedis pulses, Edema - Generalized bilateral lower extremity edema Skin: Ulcer/ Wound - Traumatic hematoma wounds to left lower extremity with adherent slough around wound bed, tunneling still present. New laceration wound to left second toe with adherent slough, no signs of infection Wound Measurements and Assessment WC - Nurse 1 - General Ulcer Measurement Start: 02/11/18 14:07 Freq: Status: Active Protocol: Activity Type Activity Date Activity User E-Sign Co-Sign Detail Recorded Client Recorded Date Recorded By Document 02/25/18 12:[address] [facility] [id number] 02/25/18 13:[address] [facility] 02/25/18 12:57 Wound Center Nurse 1 [Ulcer Assessment] #3- LT 2ND TOE TIP -Combined with other wound No -Current Size (cm) - Length 0.3 -Current Size (cm) - Width 0.4 -Current Size (cm) - Depth 0.1 -Total Square Cm 0.12 -Date of Last Picture (Recall this 02/25/18 field) -Photo Taken No -Epithelialization None Present -Tunneling No -Undermining/Tunneling No -Circular Undermining No -Exudate Amt None Present -Wound Margin Flat & Intact -Granulation Amt None Present (0 %) -Slough/Fibrin Yes -Necrosis Amt Large (67-100%) -Necrotic Tissue Type Eschar -Texture (Maryse-wound Skin Appearance) Localized Edema Scarring -Color (Maryse-wound Skin Appearance) Erythema -Temperature (Maryse-wound Skin No Abnormality Appearance) (Pt Warm) -Tenderness on Palpation (Maryse-wound No Skin Appearance) -Ulcer Cleansing Rinsed/ Irrigated with Saline -Foul Odor after Cleansing No -Anesthetic Used 5% Lidocaine Gel 2. L lateral chow -Combined with other wound No -Current Size (cm) - Length 1.1 -Current Size (cm) - Width 1 -Current Size (cm) - Depth 2.4 -Total Square Cm 1.1 -Date of Last Picture (Recall this 02/25/18 field) -Photo Taken Yes -Epithelialization None Present -Tunneling No -Undermining/Tunneling No -Circular Undermining No -Exudate Amt Medium -Exudate Type Serosanguineous -Wound Margin Flat & Intact -Granulation Amt Large (67-100%) -Granulation Quality Red -Slough/Fibrin No -Necrosis Amt None Present (0 %) -Texture (Maryse-wound Skin Appearance) Scarring -Moisture (Maryse-wound Skin Appearance Dry/Scaly ) -Color (Maryse-wound Skin Appearance) Hemosiderin Staining -Temperature (Maryse-wound Skin No Abnormality Appearance) (Pt Warm) -Tenderness on Palpation (Maryse-wound No Skin Appearance) -Ulcer Cleansing Rinsed/ Irrigated with Saline -Foul Odor after Cleansing No -Anesthetic Used 4% Lidocaine Solution 5% Lidocaine Gel 1. L medial chow -Combined with other wound No -Current Size (cm) - Length 0.3 -Current Size (cm) - Width 0.6 -Current Size (cm) - Depth 2.9 -Total Square Cm 0.18 -Date of Last Picture (Recall this 02/25/18 field) -Photo Taken Yes -Epithelialization None Present -Tunneling No -Undermining/Tunneling No -Circular Undermining No -Exudate Amt Small -Exudate Type Serosanguineous -Wound Margin Flat & Intact -Granulation Amt Large (67-100%) -Granulation Quality Red -Slough/Fibrin No -Necrosis Amt None Present (0 %) -Texture (Maryse-wound Skin Appearance) Scarring -Moisture (Maryse-wound Skin Appearance Dry/Scaly ) -Color (Maryse-wound Skin Appearance) Assessed Hemosiderin Staining -Temperature (Maryse-wound Skin No Abnormality Appearance) (Pt Warm) -Tenderness on Palpation (Maryse-wound No Skin Appearance) -Ulcer Cleansing Rinsed/ Irrigated with Saline -Foul Odor after Cleansing No -Anesthetic Used 4% Lidocaine Solution 5% Lidocaine Gel [Edema Assessment] -Lower Limb Edema Present Yes -Left Calf (cm) 42.5 -Left Ankle (cm) 27.5 WC - Nurse 2 - General Ulcer CM Notes Start: 02/11/18 14:07 Freq: Status: Active Protocol: Activity Type Activity Date Activity User E-Sign Co-Sign Detail Recorded Client Recorded Date Recorded By Document 02/25/18 13:19 [id number] 02/25/18 13:22 02/25/18 13:19 Wound Center Nurse 2 [Procedure/Treatment] #3- LT 2ND TOE TIP -Time 13:19 -Correct Patient Yes -Correct Side, Site, Position Yes -Correct Procedure Yes -Procedure Performed Yes -Type of Procedure Debridement -Clinical Debridement Subcutaneous -Post Debridement Size (cm) - Length 0.3 -Post Debridement Size (cm) - Width 0.4 -Post Debridement Size (cm) - Depth 0.1 -Total Square Cm 0.12 -Wound/Ulcer Outcome Not Healed -Ulcer Cleansing Not Cleansed -Foul Odor after Cleansing No -Bioengineered Tissue No -Bleeding Controlled with NA -Offloading No -Treatment Response Procedure Tolerated Well 2. L lateral chow -Time 13:19 -Correct Patient Yes -Correct Side, Site, Position Yes -Correct Procedure Yes -Procedure Performed Yes -Type of Procedure Debridement -Clinical Debridement Subcutaneous -Post Debridement Size (cm) - Length 1.2 -Post Debridement Size (cm) - Width 0.9 -Post Debridement Size (cm) - Depth 1 -Total Square Cm 1.08 -Wound/Ulcer Outcome Not Healed -Ulcer Cleansing Not Cleansed -Foul Odor after Cleansing No -Bioengineered Tissue No -Bleeding Controlled with NA -Offloading No -Treatment Response Procedure Tolerated Well 1. L medial chow -Time 13:21 -Correct Patient Yes -Correct Side, Site, Position Yes -Correct Procedure Yes -Procedure Performed Yes -Type of Procedure Debridement -Clinical Debridement Subcutaneous -Post Debridement Size (cm) - Length 0.3 -Post Debridement Size (cm) - Width 0.5 -Post Debridement Size (cm) - Depth 0.5 -Total Square Cm 0.15 -Wound/Ulcer Outcome Not Healed -Ulcer Cleansing Not Cleansed -Foul Odor after Cleansing No -Bioengineered Tissue No -Bleeding Controlled with NA -Offloading No -Treatment Response Procedure Tolerated Well [See Physician Procedure note for Specifics] Pain Scale: 0-10 Numeric [Pain] -Is Patient Pain Free? Yes Neurological: Neuro grossly intact Psych/Mental Status: Normal Affect, Appropriate, Alert and oriented to time, place, person, mood and affect Debridement Note Post-Debridement Measurements/Treatment WC - Nurse 2 - General Ulcer CM Notes Start: 02/11/18 14:07 Freq: Status: Active Protocol: Activity Type Activity Date Activity User E-Sign Co-Sign Detail Recorded Client Recorded Date Recorded By Document 02/11/18 14:24 [id number] 02/11/18 14:25 CS Document 02/25/18 13:19 [id number] 02/25/18 13:22 02/11/18 02/25/18 14:24 13:19 Wound Center Nurse 2 #3- LT 2ND TOE TIP -Time 13:19 -Correct Patient Yes -Correct Side, Site, Position Yes -Correct Procedure Yes -Procedure Performed Yes -Type of Procedure Debridement -Clinical Debridement Subcutaneous -Post Debridement Size (cm) - Length 0.3 -Post Debridement Size (cm) - Width 0.4 -Post Debridement Size (cm) - Depth 0.1 -Total Square Cm 0.12 -Wound/Ulcer Outcome Not Healed -Ulcer Cleansing Not Cleansed -Foul Odor after Cleansing No -Bioengineered Tissue No -Bleeding Controlled with NA -Offloading No -Treatment Response Procedure Tolerated Well 2. L lateral chow -Time 14:24 13:19 -Correct Patient Yes Yes -Correct Side, Site, Position Yes Yes -Correct Procedure Yes Yes -Procedure Performed Yes Yes -Type of Procedure Debridement Debridement -Clinical Debridement Subcutaneous Subcutaneous -Post Debridement Size (cm) - Length 0.7 1.2 -Post Debridement Size (cm) - Width 0.9 0.9 -Post Debridement Size (cm) - Depth 0.8 1 -Total Square Cm 0.63 1.08 -Wound/Ulcer Outcome Not Healed Not Healed -Ulcer Cleansing Not Cleansed Not Cleansed -Foul Odor after Cleansing No No -Bioengineered Tissue No No -Bleeding Controlled with NA NA -Offloading No No -Treatment Response Procedure Procedure Tolerated Well Tolerated Well 1. L medial chow -Time 14:25 13:21 -Correct Patient Yes Yes -Correct Side, Site, Position Yes Yes -Correct Procedure Yes Yes -Procedure Performed Yes Yes -Type of Procedure Debridement Debridement -Clinical Debridement Subcutaneous Subcutaneous -Post Debridement Size (cm) - Length 0.5 0.3 -Post Debridement Size (cm) - Width 0.8 0.5 -Post Debridement Size (cm) - Depth 0.5 0.5 -Total Square Cm 0.40 0.15 -Wound/Ulcer Outcome Not Healed Not Healed -Ulcer Cleansing Not Cleansed Not Cleansed -Foul Odor after Cleansing No No -Bioengineered Tissue No No -Bleeding Controlled with NA NA -Offloading No No -Treatment Response Procedure Procedure Tolerated Well Tolerated Well Pain Scale: 0-10 Numeric Is Patient Pain Free? Yes Yes Wound debrided: Left lower extremity wound medial and lateral status post traumati hematoma Laterality: Left Type of Debridement: Excisional debridement Anesthesia Used: 5% Lidocaine Gel Depth: in the subcutaneous layer Percentage of wound debrided: 100 Instrument Used: 7mm curette Tissue Removed: Slough and devitalized tissue Severity: Fat Layer Exposed Amount of bleeding with debridement: Mild Bleeding Controlled with: Pressure Patient tolerated procedure well - Additional Wound Wound debrided: Laceration to left second toe Laterality: Left Type of Debridement: Excisional debridement Anesthesia Used: 5% Lidocaine Gel Depth: in the subcutaneous layer Percentage of wound debrided: 100 Instrument Used: 3mm curette Tissue Removed: Slough and devitalized tissue Severity: Fat Layer Exposed Amount of bleeding with debridement: Mild Bleeding Controlled with: Pressure Patient tolerated procedure: Patient tolerated procedure well Assessment/Plan Active Problems (Last Reviewed 02/16/18 @ 10:28 by Aure Garland) Laceration of toe of left foot (Acute) Traumatic hematoma of left lower leg (Acute) Bilateral lower extremity edema (Chronic) Decreased dorsalis pedis pulse (Chronic) Abnormal ankle brachial index (SAHIL) (Acute) Wound of left lower extremity (Chronic) Assessment: See above diagnoses Plan: The patient was seen and examined at the wound center today and was u pdated on the plan of care. A subcutaneous debridement was performed today. The patient tolerated the procedure well. The previous hematoma sites on the left lower extremity continue to be open and draining small amount of serosanguineous discharge. There is still tunneling present which is improving. Wound cultures were collected previously and demonstrated staph lugdunesis, capitis , corynebacterium, anaerobic cocci and clostridium species, pt completed a course of Flagyl and doxy. The patients wound care will consist of: daily aquacell silver dressing changes to all wounds and double Tubigrip. No further compression at this time due to screening SAHIL being abnormal to the left SAHIL 1.5 and right SAHIL 1.3. Baseline bloodwork reviewed from ER notes and essentially within normal limits, recent venous duplex, ultrasound, and x-ray reviewed as well. Vascular studies ordered. Patient educated on the importance of diet on wound healing and instructed to increase protein and vitamin C intake. Patient verbalized understanding. Patient will follow up at wound healing center in 2 weeks. Discussed red flag symptoms of infection that require urgent medical attention. Stressed the importance of increased protein intake daily since she has only been drinking an ensure shake every other day. This note was generated with [employer] dictation software. It may contain incorrect words, spelling, and punctuation that were not noted in checking the note before signing. Code Visit [id number]: [id number] [place] subq tissue 20 sq cm/<
[2018-03-11 13:14] VITALS: BP 122/78; PULSE 83; RESP 18; TEMP 37.2
--- NOTE | 2018-03-11 14:27 | PCM.WC.PN ---
(1) Wound of left lower extremity Status: Chronic Current Visit: Yes Code(s): S81.802A - Unspecified open wound, left lower leg, initial encounter (2) Abnormal ankle brachial index (SAHIL) Status: Acute Current Visit: Yes Code(s): R68.89 - Other general symptoms and signs (3) Traumatic hematoma of left lower leg Status: Acute Current Visit: Yes Qualifiers: Code(s): S80.12XA - Contusion of left lower leg, initial encounter (4) Afib Status: Chronic Current Visit: No Code(s): I48.91 - Unspecified atrial fibrillation (5) Bilateral lower extremity edema Status: Chronic Current Visit: Yes Code(s): R60.0 - Localized edema (6) Decreased dorsalis pedis pulse Status: Chronic Current Visit: Yes Code(s): R09.89 - Other specified symptoms and signs involving the circulatory and respiratory systems (7) Hypertension Status: Chronic Current Visit: No Code(s): I10 - Essential (primary) hypertension (8) Laceration of toe of left foot Status: Acute Current Visit: Yes Qualifiers: Encounter type: initial encounter Toe: lesser toe Damage to nail status: without damage Foreign body presence: without foreign body Qualified Code(s): S91.115A - Laceration without foreign body of left lesser toe(s) without damage to nail, initial encounter Code(s): S91.119A - Laceration without foreign body of unspecified toe without damage to nail, initial encounter Type of Wound Date of Service: 03/11/18 Chief Complaint: hematoma left lower extremity x 2 anterior surface History of Wound: This is an 82-year-old white female who presents to the wound healing center with complaints of traumatic hematomas to the left lower extremity and bilateral lower extremity edema. She has a past medical history as listed above. It should be noted that she has persistent atrial fibrillation and on chronic Coumadin therapy. The patient states that she was carrying her dog and fell on 11/09/2017 and presented to the emergency department. An x-ray of her left ankle was negative at that time. She states that shortly after she noticed an increase in redness and swelling to her left lower extremity. She had a venous duplex ultrasound which was negative for DVT and she had a repeat ultrasound on 11/17/2017 which demonstrated to areas of the left lower extremity consistent with either an abscess or probable seroma which measured 4.9 cm and the other 6.4 cm. She states that she has been utilizing no compression and has been utilizing triple antibiotic ointment and ice. She denies any signs of systemic infection at this time and does state that the redness and warmth has diminished greatly. She denies any other aggravating or relieving factors. She does note occasional serous discharge. The patient otherwise denies any fever, chills, nausea, vomiting, shortness of breath, chest pain or pressure, palpitations, orthopnea, lower extremity edema, syncope or presyncopal episodes. Progress of Wound: Both anterior and medial sites on left lower extremity traumatic hematoma remain open, depths are improving, patient denies any signs and symptoms of infection at this time. Denies any fever, chills, nausea, vomiting, sob, cp, syncope or prescyncopal episodes. The patient continues to have a wound to her left second toe that occurred after patient was having her toenails trimmed by the wharf operator and noted a small laceration afterwards, does note that is now has some purulent fluid collected. - Physical Exam Vital Signs Temp Pulse Resp BP 98.9 F 83 18 122/78 H 03/11/18 13:14 03/11/18 13:14 03/11/18 13:14 03/11/18 13:14 General: Alert, Oriented x3, Cooperative, No apparent distress HEENT: Atraumatic, PERRLA, EOMI Oral: Moist Mucosa Lungs: Normal air movement Cardiovascular: Regular rate Extremities: No clubbing, No cyanosis, Diminished Peripheral Pulses - B/L DP pulses diminished with chronic venous changes present B/L, Edema - generalized BLLE edema Skin: Ulcer/ Wound - ulcer to left second toes with adherhant slough, callus, and yellow fluid collection, adherhant slough to left medial and lateral LE wounds Wound Measurements and Assessment WC - Nurse 1 - General Ulcer Measurement Start: 02/11/18 14:07 Freq: Status: Active Protocol: Activity Type Activity Date Activity User E-Sign Co-Sign Detail Recorded Client Recorded Date Recorded By Document 03/11/18 13:14 BRIDGETTE [id number] 03/11/18 13:19 BRIDGETTE 03/11/18 13:14 Wound Center Nurse 1 [Ulcer Assessment] #3- LT 2ND TOE TIP -Combined with other wound No -Current Size (cm) - Length 0.1 -Current Size (cm) - Width 0.1 -Current Size (cm) - Depth 0.1 -Total Square Cm 0.01 -Photo Taken No -Epithelialization Large 67-100% -Tunneling No -Undermining/Tunneling No -Circular Undermining No -Exudate Amt None Present -Wound Margin Flat & Intact -Granulation Amt None Present (0 %) -Slough/Fibrin Yes -Necrosis Amt Large (67-100%) -Necrotic Tissue Type Adherent Slough -Structure Exposed N/A -Texture (Maryse-wound Skin Appearance) Assessed Callus -Moisture (Maryse-wound Skin Appearance Assessed ) Dry/Scaly -Color (Maryse-wound Skin Appearance) Assessed -Temperature (Maryse-wound Skin No Abnormality Appearance) (Pt Warm) -Tenderness on Palpation (Maryse-wound No Skin Appearance) -Ulcer Cleansing Rinsed/ Irrigated with Saline -Foul Odor after Cleansing No -Anesthetic Used 4% Lidocaine Solution 2. L lateral chow -Combined with other wound No -Current Size (cm) - Length 1.4 -Current Size (cm) - Width 0.4 -Current Size (cm) - Depth 1.8 -Total Square Cm 0.56 -Photo Taken No -Epithelialization Small 1-33% -Tunneling No -Undermining/Tunneling No -Circular Undermining No -Exudate Amt Medium -Exudate Type Serosanguineous -Wound Margin Flat & Intact -Granulation Amt Medium (34-66%) -Granulation Quality Red -Slough/Fibrin Yes -Necrosis Amt Small (1-33%) -Necrotic Tissue Type Adherent Slough -Structure Exposed N/A -Texture (Maryse-wound Skin Appearance) Assessed Localized Edema -Moisture (Maryse-wound Skin Appearance Assessed ) Dry/Scaly -Color (Maryse-wound Skin Appearance) Assessed -Temperature (Maryse-wound Skin No Abnormality Appearance) (Pt Warm) -Tenderness on Palpation (Maryse-wound No Skin Appearance) -Ulcer Cleansing Rinsed/ Irrigated with Saline -Foul Odor after Cleansing No -Anesthetic Used 4% Lidocaine Solution 1. L medial chow -Combined with other wound No -Current Size (cm) - Length 0.1 -Current Size (cm) - Width 0.1 -Current Size (cm) - Depth 0.1 -Total Square Cm 0.01 -Photo Taken No -Epithelialization Large 67-100% -Tunneling No -Undermining/Tunneling No -Circular Undermining No -Exudate Amt None Present -Wound Margin Flat & Intact -Granulation Amt None Present (0 %) -Slough/Fibrin Yes -Necrosis Amt Small (1-33%) -Necrotic Tissue Type Adherent Slough -Structure Exposed N/A -Texture (Maryse-wound Skin Appearance) Assessed Localized Edema -Moisture (Maryse-wound Skin Appearance Assessed ) Dry/Scaly -Color (Maryse-wound Skin Appearance) Assessed Hemosiderin Staining -Temperature (Maryse-wound Skin No Abnormality Appearance) (Pt Warm) -Tenderness on Palpation (Maryse-wound No Skin Appearance) -Ulcer Cleansing Rinsed/ Irrigated with Saline -Foul Odor after Cleansing No -Anesthetic Used 4% Lidocaine Solution [Edema Assessment] -Lower Limb Edema Present Yes -Left Calf (cm) 41.5 -Left Ankle (cm) 25.5 WC - Nurse 2 - General Ulcer CM Notes Start: 02/11/18 14:07 Freq: Status: Active Protocol: Activity Type Activity Date Activity User E-Sign Co-Sign Detail Recorded Client Recorded Date Recorded By Document 03/11/18 13:25 MW [id number] 03/11/18 13:32 MW 03/11/18 13:25 Wound Center Nurse 2 [Procedure/Treatment] #3- LT 2ND TOE TIP -Time 13:25 -Correct Patient Yes -Correct Side, Site, Position Yes -Correct Procedure Yes -Procedure Performed Yes -Type of Procedure Debridement -Clinical Debridement Subcutaneous -Post Debridement Size (cm) - Length 0.3 -Post Debridement Size (cm) - Width 0.3 -Post Debridement Size (cm) - Depth 0.2 -Total Square Cm 0.09 -Wound/Ulcer Outcome Not Healed -Ulcer Cleansing Rinsed/ Irrigated with Saline -Foul Odor after Cleansing No -Bioengineered Tissue No -Bleeding Controlled with Pressure -Offloading No -Treatment Response Procedure Tolerated Well 2. L lateral chow -Time 13:25 -Correct Patient Yes -Correct Side, Site, Position Yes -Correct Procedure Yes -Procedure Performed Yes -Type of Procedure Debridement -Clinical Debridement Subcutaneous -Post Debridement Size (cm) - Length 0.5 -Post Debridement Size (cm) - Width 0.5 -Post Debridement Size (cm) - Depth 0.7 -Total Square Cm 0.25 -Wound/Ulcer Outcome Not Healed -Ulcer Cleansing Rinsed/ Irrigated with Saline -Foul Odor after Cleansing No -Bioengineered Tissue No -Bleeding Controlled with Pressure -Other tunnel @1 - 1. 5cm -Offloading No -Treatment Response Procedure Tolerated Well 1. L medial chow -Time 13:26 -Correct Patient Yes -Correct Side, Site, Position Yes -Correct Procedure Yes -Procedure Performed Yes -Type of Procedure Debridement -Clinical Debridement Subcutaneous -Post Debridement Size (cm) - Length 0.3 -Post Debridement Size (cm) - Width 0.4 -Post Debridement Size (cm) - Depth 0.2 -Total Square Cm 0.12 -Wound/Ulcer Outcome Not Healed -Ulcer Cleansing Rinsed/ Irrigated with Saline -Foul Odor after Cleansing No -Bioengineered Tissue No -Bleeding Controlled with Pressure -Offloading No -Treatment Response Procedure Tolerated Well [See Physician Procedure note for Specifics] Pain Scale: 0-10 Numeric [Pain] -Is Patient Pain Free? Yes Musculoskeletal: No Tenderness to Palpation of Joints or Extremities Neurological: Neuro grossly intact Psych/Mental Status: Normal Affect, Appropriate, Alert and oriented to time, place, person, mood and affect Debridement Note Post-Debridement Measurements/Treatment WC - Nurse 2 - General Ulcer CM Notes Start: 02/11/18 14:07 Freq: Status: Active Protocol: Activity Type Activity Date Activity User E-Sign Co-Sign Detail Recorded Client Recorded Date Recorded By Document 02/11/18 14:24 [id number] 02/11/18 14:25 CS Document 02/25/18 13:19 CS [id number] 02/25/18 13:22 CS Document 03/11/18 13:25 MW [id number] 03/11/18 13:32 MW 02/11/18 02/25/18 03/11/18 14:24 13:19 13:25 Wound Center Nurse 2 #3- LT 2ND TOE TIP -Time 13:19 13:25 -Correct Patient Yes Yes -Correct Side, Site, Position Yes Yes -Correct Procedure Yes Yes -Procedure Performed Yes Yes -Type of Procedure Debridement Debridement -Clinical Debridement Subcutaneous Subcutaneous -Post Debridement Size (cm) - Length 0.3 0.3 -Post Debridement Size (cm) - Width 0.4 0.3 -Post Debridement Size (cm) - Depth 0.1 0.2 -Total Square Cm 0.12 0.09 -Wound/Ulcer Outcome Not Healed Not Healed -Ulcer Cleansing Not Cleansed Rinsed/ Irrigated with Saline -Foul Odor after Cleansing No No -Bioengineered Tissue No No -Bleeding Controlled with NA Pressure -Offloading No No -Treatment Response Procedure Procedure Tolerated Well Tolerated Well 2. L lateral chow -Time 14:24 13:19 13:25 -Correct Patient Yes Yes Yes -Correct Side, Site, Position Yes Yes Yes -Correct Procedure Yes Yes Yes -Procedure Performed Yes Yes Yes -Type of Procedure Debridement Debridement Debridement -Clinical Debridement Subcutaneous Subcutaneous Subcutaneous -Post Debridement Size (cm) - Length 0.7 1.2 0.5 -Post Debridement Size (cm) - Width 0.9 0.9 0.5 -Post Debridement Size (cm) - Depth 0.8 1 0.7 -Total Square Cm 0.63 1.08 0.25 -Wound/Ulcer Outcome Not Healed Not Healed Not Healed -Ulcer Cleansing Not Cleansed Not Cleansed Rinsed/ Irrigated with Saline -Foul Odor after Cleansing No No No -Bioengineered Tissue No No No -Bleeding Controlled with NA NA Pressure -Other tunnel @1 - 1. 5cm -Offloading No No No -Treatment Response Procedure Procedure Procedure Tolerated Well Tolerated Well Tolerated Well 1. L medial chow -Time 14:25 13:21 13:26 -Correct Patient Yes Yes Yes -Correct Side, Site, Position Yes Yes Yes -Correct Procedure Yes Yes Yes -Procedure Performed Yes Yes Yes -Type of Procedure Debridement Debridement Debridement -Clinical Debridement Subcutaneous Subcutaneous Subcutaneous -Post Debridement Size (cm) - Length 0.5 0.3 0.3 -Post Debridement Size (cm) - Width 0.8 0.5 0.4 -Post Debridement Size (cm) - Depth 0.5 0.5 0.2 -Total Square Cm 0.40 0.15 0.12 -Wound/Ulcer Outcome Not Healed Not Healed Not Healed -Ulcer Cleansing Not Cleansed Not Cleansed Rinsed/ Irrigated with Saline -Foul Odor after Cleansing No No No -Bioengineered Tissue No No No -Bleeding Controlled with NA NA Pressure -Offloading No No No -Treatment Response Procedure Procedure Procedure Tolerated Well Tolerated Well Tolerated Well Pain Scale: 0-10 Numeric Is Patient Pain Free? Yes Yes Yes Wound debrided: left lower extremity medial and lateral wound Laterality: Left Type of Debridement: Excisional debridement Anesthesia Used: 5% Lidocaine Gel Depth: in the subcutaneous layer Percentage of wound debrided: 100 Instrument Used: 5mm curette Tissue Removed: slough and devitalized tissue Severity: Fat Layer Exposed Amount of bleeding with debridement: Mild Bleeding Controlled with: Pressure Patient tolerated procedure well - Additional Wound Wound debrided: left second toe wound Laterality: Left Type of Debridement: Excisional debridement Anesthesia Used: 5% Lidocaine Gel Depth: in the subcutaneous layer Percentage of wound debrided: 100 Instrument Used: 3mm curette Tissue Removed: slough devitalized tissue Severity: Fat Layer Exposed Amount of bleeding with debridement: Mild Bleeding Controlled with: Pressure Patient tolerated procedure: Patient tolerated procedure well Assessment/Plan Active Problems (Last Reviewed 03/02/18 @ 13:12 by Aure Garland) Laceration of toe of left foot (Acute) Traumatic hematoma of left lower leg (Acute) Bilateral lower extremity edema (Chronic) Decreased dorsalis pedis pulse (Chronic) Abnormal ankle brachial index (SAHIL) (Acute) Wound of left lower extremity (Chronic) Assessment: See above diagnoses Plan: The patient was seen and examined at the wound center today and was updated on the plan of care. A subcutaneous debridement was performed today. The patient tolerated the procedure well. The previous hematoma sites on the left lower extremity continue to be open and draining small amount of serosanguineous discharge. There is still tunneling present which is improving. Wound cultures were collected previously and demonstrated staph lugdunesis, capitis , corynebacterium, anaerobic cocci and clostridium species, pt completed a course of Flagyl and doxy. The patients wound care will consist of: daily aquacell silver dressing changes to all wounds and double Tubigrip for compression. No further compression at this time due to screening SAHIL being abnormal to the left SAHIL 1.5 and right SAHIL 1.3. Baseline bloodwork reviewed from ER notes and essentially within normal limits, recent venous duplex, ultrasound, and x-ray reviewed as well. Vascular studies ordered. Patient educated on the importance of diet on wound healing and instructed to increase protein and vitamin C intake. Patient verbalized understanding. Patient will follow up at wound healing center in 2 weeks. Discussed red flag symptoms of infection that require urgent medical attention. Stressed the importance of increased protein intake daily since she has only been drinking an ensure shake every other day. This note was generated with [employer] software. It may contain incorrect words, spelling, and punctuation that were not noted in checking the note before signing. Code Visit [id number]: 00066 [place] subq tissue 20 sq cm/<
== END 2018-03-11 23:59 ==
LOC: WC 13:00
PROVIDERS: Family Provider Internal Medicine; PCP Internal Medicine; Visit Provider Nurse Practitioner Family
DX: S80.12XA Contusion of left lower leg, initial encounter (principal); W19.XXXA Unspecified fall, initial encounter; R60.0 Localized edema; R09.89 Other specified symptoms and signs involving the circulatory and respiratory systems; I48.91 Unspecified atrial fibrillation; I10 Essential (primary) hypertension; Z79.01 Long term (current) use of anticoagulants
CPT/HCPCS: 11042

== ENCOUNTER 2018-04-08 13:15 | Outpatient (RCR) | payer MEDICARE, OTHER, SELFPAY ==
[2018-03-12 01:18] VITALS: BP 122/78; PULSE 83; RESP 18; TEMP 37.2
[2018-03-25 13:11] VITALS: BP 129/87; PULSE 89; RESP 16; TEMP 35.5
--- NOTE | 2018-03-30 09:51 | PN.PCM_ITS ---
(1) Wound of left lower extremity Status: Chronic Code(s): S81.802A - Unspecified open wound, left lower leg, initial encounter (2) Traumatic hematoma of left lower leg Status: Acute Qualifiers: Code(s): S80.12XA - Contusion of left lower leg, initial encounter (3) Abnormal ankle brachial index (SAHIL) Status: Acute Code(s): R68.89 - Other general symptoms and signs (4) Laceration of toe of left foot Status: Acute Qualifiers: Code(s): S91.119A - Laceration without foreign body of unspecified toe without damage to nail, initial encounter (5) Bilateral lower extremity edema Status: Chronic Code(s): R60.0 - Localized edema (6) Decreased dorsalis pedis pulse Status: Chronic Code(s): R09.89 - Other specified symptoms and signs involving the circulatory and respiratory systems Type of Wound Date of Service: 03/25/18 Chief Complaint: hematoma left lower extremity x 2 anterior surface History of Wound: This is an 82-year-old white female who presents to the wound healing center with complaints of traumatic hematomas to the left lower extremity and bilateral lower extremity edema. She has a past medical history as listed above. It should be noted that she has persistent atrial fibrillation and on chronic Coumadin therapy. The patient states that she was carrying her dog and fell on 11/09/2017 and presented to the emergency department. An x-ray of her left ankle was negative at that time. She states that shortly after she noticed an increase in redness and swelling to her left lower extremity. She had a venous duplex ultrasound which was negative for DVT and she had a repeat ultrasound on 11/17/2017 which demonstrated to areas of the left lower extremity consistent with either an abscess or probable seroma which measured 4.9 cm and the other 6.4 cm. She states that she has been utilizing no compression and has been utilizing triple antibiotic ointment and ice. She denies any signs of systemic infection at this time and does state that the redness and warmth has diminished greatly. She denies any other aggravating or relieving factors. She does note occasional serous discharge. The patient otherwise denies any fever, chills, nausea, vomiting, shortness of breath, chest pain or pressure, palpitations, orthopnea, lower extremity edema, syncope or presyncopal episodes. Progress of Wound: anterior site on left lower extremity traumatic hematoma remain open, depth are improving, patient denies any signs and symptoms of infection at this time. Medial side is now healed. Denies any fever, chills, nausea, vomiting, sob, cp, syncope or prescyncopal episodes. The patient continues to have a wound to her left second toe that occurred after patient was having her toenails trimmed by the underground truck operator and noted a small laceration afterwards, this is improving as well and slightly macerated. Has not been using the aquacell over site. - Physical Exam Vital Signs Temp Pulse Resp BP 95.9 F L 89 16 129/87 H 03/25/18 13:11 03/25/18 13:11 03/25/18 13:11 03/25/18 13:11 General: Alert, Oriented x3, Cooperative, No apparent distress HEENT: Atraumatic Cardiovascular: Regular rate Abdomen: Soft, Non Tender Extremities: No clubbing, No cyanosis, Diminished Peripheral Pulses, Edema - +1 BLLE edema Skin: Ulcer/ Wound - laceration to left second toe with adherant slough, left medial leg healed and left lateral leg wound tunnels .9 at 1 oclock and size is improving, no signs of infection at this time Neurological: Neuro grossly intact Psych/Mental Status: Normal Affect, Appropriate, Alert and oriented to time, place, person, mood and affect Debridement Note Post-Debridement Measurements/Treatment WC - Nurse 2 - General Ulcer CM Notes Start: 03/25/18 13:11 Freq: Status: Active Protocol: Activity Type Activity Date Activity User E-Sign Co-Sign Detail Recorded Client Recorded Date Recorded By Document 03/25/18 13:39 DV [id number] 03/25/18 13:43 DV 03/25/18 13:39 Wound Center Nurse 2 #3- LT 2ND TOE TIP -Time 13:40 -Correct Patient Yes -Correct Side, Site, Position Yes -Correct Procedure Yes -Procedure Performed Yes -Type of Procedure Debridement -Clinical Debridement Subcutaneous -Post Debridement Size (cm) - Length 0.1 -Post Debridement Size (cm) - Width 0.1 -Post Debridement Size (cm) - Depth 0.1 -Total Square Cm 0.01 -Wound/Ulcer Outcome Not Healed -Ulcer Cleansing Rinsed/ Irrigated with Saline -Foul Odor after Cleansing No -Bioengineered Tissue No -Bleeding Controlled with Pressure -Offloading No -Treatment Response Procedure Tolerated Well 2. L lateral chow -Time 13:41 -Correct Patient Yes -Correct Side, Site, Position Yes -Correct Procedure Yes -Procedure Performed Yes -Type of Procedure Debridement -Clinical Debridement Subcutaneous -Post Debridement Size (cm) - Length 0.2 -Post Debridement Size (cm) - Width 0.2 -Post Debridement Size (cm) - Depth 0.2 -Total Square Cm 0.04 -Wound/Ulcer Outcome Not Healed -Ulcer Cleansing Rinsed/ Irrigated with Saline -Foul Odor after Cleansing No -Bioengineered Tissue No -Bleeding Controlled with Pressure -Offloading Yes -Treatment Response Procedure Tolerated Well 1. L medial chow -Time 13:40 -Correct Patient Yes -Correct Side, Site, Position Yes -Procedure Performed No -Post Debridement Size (cm) - Length 0 -Post Debridement Size (cm) - Width 0 -Post Debridement Size (cm) - Depth 0 -Total Square Cm 0 -Wound/Ulcer Outcome Healed- Epithelialized Wound debrided: Left second toe laceration Laterality: Left Type of Debridement: Excisional debridement Anesthesia Used: 5% Lidocaine Gel Depth: in the subcutaneous layer Percentage of wound debrided: 100 Instrument Used: 3mm curette Tissue Removed: slough devitalized tissue Severity: Fat Layer Exposed Amount of bleeding with debridement: Mild Bleeding Controlled with: Pressure Patient tolerated procedure well - Additional Wound Wound debrided: left lateral leg wound s/p traumatic hematoma Laterality: Left Type of Debridement: Excisional debridement Anesthesia Used: 5% Lidocaine Gel Depth: in the subcutaneous layer Percentage of wound debrided: 100 Instrument Used: 3mm curette Tissue Removed: slough and devitalized tissue Severity: Fat Layer Exposed Amount of bleeding with debridement: Mild Bleeding Controlled with: Pressure Patient tolerated procedure: Patient tolerated procedure well Assessment/Plan Assessment: See above diagnoses Plan: The patient was seen and examined at the wound center today and was updated on the plan of care. A subcutaneous debridement was performed today. The patient tolerated the procedure well. The previous hematoma lateral site on the left lower extremity continue to be open and draining small amount of serosanguineous discharge, medial site is healed. There is still tunneling present which is improving. Wound cultures were collected previously and demonstrated staph lugdunesis, capitis , corynebacterium, anaerobic cocci and clostridium species, pt completed a course of Flagyl and doxy. The patients wound care will consist of: daily aquacell silver dressing changes to all wounds and double Tubigrip for compression. No further compression at this time due to screening SAHIL being abnormal to the left SAHIL 1.5 and right SAHIL 1.3. Baseline bloodwork reviewed from ER notes and essentially within normal limits, recent venous duplex, ultrasound, and x-ray reviewed as well. Vascular studies ordered. Patient educated on the importance of diet on wound healing and instructed to increase protein and vitamin C intake. Patient verbalized understanding. Patient will follow up at wound healing center in 2 weeks. Discussed red flag symptoms of infection that require urgent medical attention. Stressed the importance of increased protein intake daily since she has only been drinking an ensure shake every other day. This note was generated with [employer]eni dictation software. It may contain incorrect words, spelling, and punctuation that were not noted in checking the note before signing. Code Visit 111xxx-113xx: [id number] [place] subq tissue 20 sq cm/<
[2018-04-08 13:24] VITALS: BP 126/68; PULSE 88; RESP 20; TEMP 36.1
--- NOTE | 2018-04-08 17:54 | PCM.WC.PN ---
(1) Wound of left lower extremity Status: Chronic Code(s): S81.802A - Unspecified open wound, left lower leg, initial encounter (2) Traumatic hematoma of left lower leg Status: Acute Qualifiers: Code(s): S80.12XA - Contusion of left lower leg, initial encounter (3) Abnormal ankle brachial index (SAHIL) Status: Acute Code(s): R68.89 - Other general symptoms and signs (4) Laceration of toe of left foot Status: Acute Qualifiers: Code(s): S91.119A - Laceration without foreign body of unspecified toe without damage to nail, initial encounter (5) Bilateral lower extremity edema Status: Chronic Code(s): R60.0 - Localized edema (6) Decreased dorsalis pedis pulse Status: Chronic Code(s): R09.89 - Other specified symptoms and signs involving the circulatory and respiratory systems Type of Wound Date of Service: 04/08/18 Chief Complaint: hematoma left lower extremity x 2 anterior surface History of Wound: This is an 82-year-old white female who presents to the wound healing center with complaints of traumatic hematomas to the left lower extremity and bilateral lower extremity edema. She has a past medical history as listed above. It should be noted that she has persistent atrial fibrillation and on chronic Coumadin therapy. The patient states that she was carrying her dog and fell on 11/09/2017 and presented to the emergency department. An x-ray of her left ankle was negative at that time. She states that shortly after she noticed an increase in redness and swelling to her left lower extremity. She had a venous duplex ultrasound which was negative for DVT and she had a repeat ultrasound on 11/17/2017 which demonstrated to areas of the left lower extremity consistent with either an abscess or probable seroma which measured 4.9 cm and the other 6.4 cm. She states that she has been utilizing no compression and has been utilizing triple antibiotic ointment and ice. She denies any signs of systemic infection at this time and does state that the redness and warmth has diminished greatly. She denies any other aggravating or relieving factors. She does note occasional serous discharge. The patient otherwise denies any fever, chills, nausea, vomiting, shortness of breath, chest pain or pressure, palpitations, orthopnea, lower extremity edema, syncope or presyncopal episodes. Progress of Wound: All of patient's wounds are now epithelialized and healed. Denies any fever, chills, nausea, vomiting, sob, cp, syncope or prescyncopal episodes. - Physical Exam Vital Signs Temp Pulse Resp BP 97 F L 88 20 H 126/68 H 04/08/18 13:24 04/08/18 13:24 04/08/18 13:24 04/08/18 13:24 General: Alert, Oriented x3, Cooperative, No apparent distress HEENT: Atraumatic Oral: Moist Mucosa Neck: Supple Lungs: Clear to auscultation, Normal air movement, No rhonchi, No wheeze, No rales Cardiovascular: Regular rate, Regular Rhythm, Normal S1, Normal S2 Abdomen: Soft, Obese Extremities: No clubbing, No cyanosis, Diminished Peripheral Pulses - Bilateral dorsal pedis pulses, Edema - +1 edema to left lower extremity Skin: Ulcer/ Wound - Traumatic wounds to left lower extremity epithelialized and wound to left second toe healed without any signs of infection at this time Wound Measurements and Assessment WC - Nurse 1 - General Ulcer Measurement Start: 03/25/18 13:11 Freq: Status: Active Protocol: Activity Type Activity Date Activity User E-Sign Co-Sign Detail Recorded Client Recorded Date Recorded By Document 04/08/18 13:18 MT [id number] 04/08/18 13:24 MT 04/08/18 13:18 Wound Center Nurse 1 [Ulcer Assessment] #3- LT 2ND TOE TIP -Current Size (cm) - Length 0.1 -Current Size (cm) - Width 0.1 -Current Size (cm) - Depth 0.1 -Total Square Cm 0.01 -Epithelialization Large 67-100% 2. L lateral chow -Current Size (cm) - Length 0.1 -Current Size (cm) - Width 0.1 -Current Size (cm) - Depth 0.1 -Total Square Cm 0.01 -Epithelialization Large 67-100% [Edema Assessment] -Left Calf (cm) 41 -Left Ankle (cm) 27 WC - Nurse 2 - General Ulcer CM Notes Start: 03/25/18 13:11 Freq: Status: Active Protocol: Activity Type Activity Date Activity User E-Sign Co-Sign Detail Recorded Client Recorded Date Recorded By Document 04/08/18 14:21 DV [id number] 02/28/19 14:22 DV 04/08/18 14:21 Wound Center Nurse 2 [Procedure/Treatment] #3- LT 2ND TOE TIP -Time 14:21 -Correct Patient Yes -Correct Side, Site, Position Yes -Procedure Performed No -Wound/Ulcer Outcome Healed- Epithelialized 2. L lateral chow -Time 14:21 -Correct Patient Yes -Correct Side, Site, Position Yes -Procedure Performed No -Wound/Ulcer Outcome Healed- Epithelialized [See Physician Procedure note for Specifics] Pain Scale: 0-10 Numeric [Pain] -Is Patient Pain Free? Yes Neurological: Neuro grossly intact Psych/Mental Status: Normal Affect, Appropriate, Alert and oriented to time, place, person, mood and affect Debridement Note Post-Debridement Measurements/Treatment WC - Nurse 2 - General Ulcer CM Notes Start: 03/25/18 13:11 Freq: Status: Active Protocol: Activity Type Activity Date Activity User E-Sign Co-Sign Detail Recorded Client Recorded Date Recorded By Document 03/25/18 13:39 DV [id number] 03/25/18 13:43 DV Document 04/08/18 14:21 DV [id number] 04/08/18 14:22 DV 03/25/18 04/08/18 13:39 14:21 Wound Center Nurse 2 #3- LT 2ND TOE TIP -Time 13:40 14:21 -Correct Patient Yes Yes -Correct Side, Site, Position Yes Yes -Correct Procedure Yes -Procedure Performed Yes No -Type of Procedure Debridement -Clinical Debridement Subcutaneous -Post Debridement Size (cm) - Length 0.1 -Post Debridement Size (cm) - Width 0.1 -Post Debridement Size (cm) - Depth 0.1 -Total Square Cm 0.01 -Wound/Ulcer Outcome Not Healed Healed- Epithelialized -Ulcer Cleansing Rinsed/ Irrigated with Saline -Foul Odor after Cleansing No -Bioengineered Tissue No -Bleeding Controlled with Pressure -Offloading No -Treatment Response Procedure Tolerated Well 2. L lateral chow -Time 13:41 14:21 -Correct Patient Yes Yes -Correct Side, Site, Position Yes Yes -Correct Procedure Yes -Procedure Performed Yes No -Type of Procedure Debridement -Clinical Debridement Subcutaneous -Post Debridement Size (cm) - Length 0.2 -Post Debridement Size (cm) - Width 0.2 -Post Debridement Size (cm) - Depth 0.2 -Total Square Cm 0.04 -Wound/Ulcer Outcome Not Healed Healed- Epithelialized -Ulcer Cleansing Rinsed/ Irrigated with Saline -Foul Odor after Cleansing No -Bioengineered Tissue No -Bleeding Controlled with Pressure -Offloading Yes -Treatment Response Procedure Tolerated Well 1. L medial chow -Time 13:40 -Correct Patient Yes -Correct Side, Site, Position Yes -Procedure Performed No -Post Debridement Size (cm) - Length 0 -Post Debridement Size (cm) - Width 0 -Post Debridement Size (cm) - Depth 0 -Total Square Cm 0 -Wound/Ulcer Outcome Healed- Epithelialized Pain Scale: 0-10 Numeric Is Patient Pain Free? Yes No debridement was completed today Assessment/Plan Assessment: See above diagnoses Plan: The patient was seen and examined at the wound center today and was updated on the plan of care. All of the patient's wounds are healed. Did discuss with patient that she may use vitamin E oil to help soften the scar tissue. She will continue with double Tubigrip for compression. Patient educated on the importance of diet on wound healing and instructed to increase protein and vitamin C intake. Patient verbalized understanding. Patient to be discharged from the wound healing center and follow-up as needed this note was generated with [employer] software. It may contain incorrect words, spelling, and punctuation that were not noted in checking the note before signing. Code Visit 111xxx-113xx: [id number] [place] subq tissue 20 sq cm/<
--- NOTE | 2018-04-09 16:58 | PN.PCM_ITS ---
(1) Wound of left lower extremity Status: Chronic Code(s): S81.802A - Unspecified open wound, left lower leg, initial encounter (2) Traumatic hematoma of left lower leg Status: Acute Qualifiers: Code(s): S80.12XA - Contusion of left lower leg, initial encounter (3) Abnormal ankle brachial index (SAHIL) Status: Acute Code(s): R68.89 - Other general symptoms and signs (4) Laceration of toe of left foot Status: Acute Qualifiers: Code(s): S91.119A - Laceration without foreign body of unspecified toe without damage to nail, initial encounter (5) Bilateral lower extremity edema Status: Chronic Code(s): R60.0 - Localized edema (6) Decreased dorsalis pedis pulse Status: Chronic Code(s): R09.89 - Other specified symptoms and signs involving the circulatory and respiratory systems Type of Wound Date of Service: 04/08/18 Chief Complaint: hematoma left lower extremity x 2 anterior surface History of Wound: This is an 82-year-old white female who presents to the wound healing center with complaints of traumatic hematomas to the left lower extremity and bilateral lower extremity edema. She has a past medical history as listed above. It should be noted that she has persistent atrial fibrillation and on chronic Coumadin therapy. The patient states that she was carrying her dog and fell on 11/09/2017 and presented to the emergency department. An x-ray of her left ankle was negative at that time. She states that shortly after she noticed an increase in redness and swelling to her left lower extremity. She had a venous duplex ultrasound which was negative for DVT and she had a repeat ultrasound on 11/17/2017 which demonstrated to areas of the left lower extremity consistent with either an abscess or probable seroma which measured 4.9 cm and the other 6.4 cm. She states that she has been utilizing no compression and has been utilizing triple antibiotic ointment and ice. She denies any signs of systemic infection at this time and does state that the redness and warmth has diminished greatly. She denies any other aggravating or relieving factors. She does note occasional serous discharge. The patient otherwise denies any fever, chills, nausea, vomiting, shortness of breath, chest pain or pressure, palpitations, orthopnea, lower extremity edema, syncope or presyncopal episodes. Progress of Wound: All of patient's wounds are now epithelialized and healed. Denies any fever, chills, nausea, vomiting, sob, cp, syncope or prescyncopal episodes. - Physical Exam Vital Signs Temp Pulse Resp BP 97 F L 88 20 H 126/68 H 04/08/18 13:24 04/08/18 13:24 04/08/18 13:24 04/08/18 13:24 General: Alert, Oriented x3, Cooperative, No apparent distress HEENT: Atraumatic Oral: Moist Mucosa Neck: Supple Lungs: Clear to auscultation, Normal air movement, No rhonchi, No wheeze, No rales Cardiovascular: Regular rate, Regular Rhythm, Normal S1, Normal S2 Abdomen: Soft, Obese Extremities: No clubbing, No cyanosis, Diminished Peripheral Pulses - Bilateral dorsal pedis pulses, Edema - +1 edema to left lower extremity Skin: Ulcer/ Wound - Traumatic wounds to left lower extremity epithelialized and wound to left second toe healed without any signs of infection at this time Wound Measurements and Assessment WC - Nurse 1 - General Ulcer Measurement Start: 03/25/18 13:11 Freq: Status: Active Protocol: Activity Type Activity Date Activity User E-Sign Co-Sign Detail Recorded Client Recorded Date Recorded By Document 04/08/18 13:18 MT [id number] 04/08/18 13:24 MT 04/08/18 13:18 Wound Center Nurse 1 [Ulcer Assessment] #3- LT 2ND TOE TIP -Current Size (cm) - Length 0.1 -Current Size (cm) - Width 0.1 -Current Size (cm) - Depth 0.1 -Total Square Cm 0.01 -Epithelialization Large 67-100% 2. L lateral chow -Current Size (cm) - Length 0.1 -Current Size (cm) - Width 0.1 -Current Size (cm) - Depth 0.1 -Total Square Cm 0.01 -Epithelialization Large 67-100% [Edema Assessment] -Left Calf (cm) 41 -Left Ankle (cm) 27 WC - Nurse 2 - General Ulcer CM Notes Start: 03/25/18 13:11 Freq: Status: Active Protocol: Activity Type Activity Date Activity User E-Sign Co-Sign Detail Recorded Client Recorded Date Recorded By Document 04/08/18 14:21 DV [id number] 02/28/19 14:22 DV 04/08/18 14:21 Wound Center Nurse 2 [Procedure/Treatment] #3- LT 2ND TOE TIP -Time 14:21 -Correct Patient Yes -Correct Side, Site, Position Yes -Procedure Performed No -Wound/Ulcer Outcome Healed- Epithelialized 2. L lateral chow -Time 14:21 -Correct Patient Yes -Correct Side, Site, Position Yes -Procedure Performed No -Wound/Ulcer Outcome Healed- Epithelialized [See Physician Procedure note for Specifics] Pain Scale: 0-10 Numeric [Pain] -Is Patient Pain Free? Yes Neurological: Neuro grossly intact Psych/Mental Status: Normal Affect, Appropriate, Alert and oriented to time, place, person, mood and affect Debridement Note Post-Debridement Measurements/Treatment WC - Nurse 2 - General Ulcer CM Notes Start: 03/25/18 13:11 Freq: Status: Active Protocol: Activity Type Activity Date Activity User E-Sign Co-Sign Detail Recorded Client Recorded Date Recorded By Document 03/25/18 13:39 DV [id number] 03/25/18 13:43 DV Document 04/08/18 14:21 DV [id number] 04/08/18 14:22 DV 03/25/18 04/08/18 13:39 14:21 Wound Center Nurse 2 #3- LT 2ND TOE TIP -Time 13:40 14:21 -Correct Patient Yes Yes -Correct Side, Site, Position Yes Yes -Correct Procedure Yes -Procedure Performed Yes No -Type of Procedure Debridement -Clinical Debridement Subcutaneous -Post Debridement Size (cm) - Length 0.1 -Post Debridement Size (cm) - Width 0.1 -Post Debridement Size (cm) - Depth 0.1 -Total Square Cm 0.01 -Wound/Ulcer Outcome Not Healed Healed- Epithelialized -Ulcer Cleansing Rinsed/ Irrigated with Saline -Foul Odor after Cleansing No -Bioengineered Tissue No -Bleeding Controlled with Pressure -Offloading No -Treatment Response Procedure Tolerated Well 2. L lateral chow -Time 13:41 14:21 -Correct Patient Yes Yes -Correct Side, Site, Position Yes Yes -Correct Procedure Yes -Procedure Performed Yes No -Type of Procedure Debridement -Clinical Debridement Subcutaneous -Post Debridement Size (cm) - Length 0.2 -Post Debridement Size (cm) - Width 0.2 -Post Debridement Size (cm) - Depth 0.2 -Total Square Cm 0.04 -Wound/Ulcer Outcome Not Healed Healed- Epithelialized -Ulcer Cleansing Rinsed/ Irrigated with Saline -Foul Odor after Cleansing No -Bioengineered Tissue No -Bleeding Controlled with Pressure -Offloading Yes -Treatment Response Procedure Tolerated Well 1. L medial chow -Time 13:40 -Correct Patient Yes -Correct Side, Site, Position Yes -Procedure Performed No -Post Debridement Size (cm) - Length 0 -Post Debridement Size (cm) - Width 0 -Post Debridement Size (cm) - Depth 0 -Total Square Cm 0 -Wound/Ulcer Outcome Healed- Epithelialized Pain Scale: 0-10 Numeric Is Patient Pain Free? Yes No debridement was completed today Assessment/Plan Assessment: See above diagnoses Plan: The patient was seen and examined at the wound center today and was updated on the plan of care. All of the patient's wounds are healed. Did discuss with patient that she may use vitamin E oil to help soften the scar tissue. She will continue with double Tubigrip for compression. Patient educated on the importance of diet on wound healing and instructed to increase protein and vitamin C intake. Patient verbalized understanding. Patient to be discharged from the wound healing center and follow-up as needed this note was generated with [employer] software. It may contain incorrect words, spelling, and punctuation that were not noted in checking the note before signing. Code Visit 111xxx-113xx: [id number] [place] subq tissue 20 sq cm/<
== END 2018-04-08 23:59 ==
LOC: WC 13:15
PROVIDERS: Family Provider Internal Medicine; PCP Internal Medicine; Visit Provider Nurse Practitioner Family
DX: S80.12XA Contusion of left lower leg, initial encounter (principal); W19.XXXA Unspecified fall, initial encounter; R60.0 Localized edema; R09.89 Other specified symptoms and signs involving the circulatory and respiratory systems; I48.91 Unspecified atrial fibrillation; I10 Essential (primary) hypertension; Z79.01 Long term (current) use of anticoagulants; S91.115A Laceration without foreign body of left lesser toe(s) without damage to nail, initial encounter; W27.8XXA Contact with other nonpowered hand tool, initial encounter
CPT/HCPCS: 11042; 99212; G0463

== ENCOUNTER → 2018-11-09 | Outpatient (CLI) | payer MEDICARE, OTHER, SELFPAY ==
[2018-11-09 10:24] LABS: International Normalized Ratio 1.9; Prothrombin Time (Protime)PT. 21.3 SECONDS (11.7-14.9)
== END | disposition home or self-care (01) ==
LOC: LABSPEC 10:16
PROVIDERS: Family Provider Internal Medicine; PCP Internal Medicine; Visit Provider Internal Medicine
DX: I48.91 Unspecified atrial fibrillation (principal)
CPT/HCPCS: 85610

== ENCOUNTER → 2018-12-23 | Outpatient (CLI) | payer MEDICARE, OTHER, SELFPAY ==
[2018-12-23 12:16] LABS: International Normalized Ratio 2.1; Prothrombin Time (Protime)PT. 23.5 SECONDS (11.7-14.9)
== END | disposition home or self-care (01) ==
PROVIDERS: Family Provider Internal Medicine; PCP Internal Medicine; Referring Provider Internal Medicine; Visit Provider Internal Medicine
DX: I48.19 Other persistent atrial fibrillation (principal)
CPT/HCPCS: 85610